=== PATIENT | male | born 1955 | race Caucasian/White ===

== ENCOUNTER 2018-10-09 10:00 | Outpatient (CLI) | payer MEDICARE, MEDICAID, SELFPAY ==
[2018-10-09 10:35] LABS: Abs Immature Grans 0.09 k/cumm (0.0-0.09); Absolute Basophil Count 0.07 k/cumm (0.0-0.2); Absolute Eosinophil Count 0.05 k/cumm (0.0-0.7); Absolute Monocyte Count 0.58 k/cumm (0.11-0.7); Absolute Neutrophil Count 5.63 k/cumm (1.2-6.7); Basophils % 0.9; Eosinophils % 0.6; HCT 44.3 % (40.0-50.0); Immature Grans % 1.1; Mean Corp. HGB Concentration 33.9 g/dL (32.0-36.0); Mean Corpuscular Hemoglobin 31.6 pg (27.0-33.0); Mean Corpuscular Volume 93.3 fL (80-95); Monocytes % 7.2; Neutrophils % 70.2; Platelet Count 242 x1000/uL (130-400); RBC 4.75 m/cumm (4.50-6.00); RBC Distribution Width 12.6 % (11.8-14.1); White Blood Cell Count 8.02 k/cumm (4.4-10.8)
[2018-10-09 10:40] LABS: Bilirubin Negative (Negative); Blood Negative (Negative); Clarity Clear; Glucose 100 mg/dL (Negative); Ketones Negative (Negative); Leukocyte Esterase Negative (Negative); Nitrite Negative (Negative); Urobilinogen 0.2 EU/dL (Up TO 0.2)
[2018-10-09 11:29] LABS: ALT 33 U/L (12-78); AST 15 U/L (15-37); Albumin 3.6 g/dL (3.4-5.0); Alkaline Phosphatase 81 U/L (46-116); Anion Gap 9.9 mmol/L (3-11); BUN 12 mg/dL (7-18); Bilirubin, Total 0.3 mg/dL (0.2-1.0); CO2 29.1 mmol/L (21.0-32.0); CREATININE 1.01 mg/dL (0.70-1.30); Calcium 9.1 mg/dL (8.5-10.1); Chloride 101 mmol/L (98-107); Cholesterol 217 mg/dL (50-200); Glucose 190 mg/dL (70-100); HDL Cholesterol 29 mg/dL (40-60); LDL CHOLESTEROL 128 mg/dL (<100); Potassium 4.2 mmol/L (3.5-5.1); Sodium 140 mmol/L (136-145); TSH (W/Ref FT4) 2.28 uIU/mL (0.358-3.74); Total Protein 7.4 g/dL (6.4-8.2); Triglyceride 370 mg/dL (30-150)
== END 2018-10-09 10:20 ==
PROVIDERS: PCP Specialist/Technologist Athletic Trainer; Visit Provider Nurse Practitioner Psychiatric/Mental Health
DX: F29 Unspecified psychosis not due to a substance or known physiological condition (principal); Z79.899 Other long term (current) drug therapy
CPT/HCPCS: 36415; 80053; 80061; 83721; 81003; 83036; 84443; 85025

== ENCOUNTER 2019-05-17 12:18 | Outpatient (REF) | payer MEDICARE, MEDICAID, SELFPAY ==
[2019-05-17 22:19] LABS: HCT 46.8 % (40.0-50.0); HGB 15.7 g/dL (13.5-17.5); Mean Corp. HGB Concentration 33.5 g/dL (32.0-36.0); Mean Corpuscular Volume 92.3 fL (80-95); Mean Platelet Volume 12.1 fL (8.0-11.0); Platelet Count 282 x1000/uL (130-400); RBC 5.07 m/cumm (4.50-6.00); RBC Distribution Width 12.2 % (11.8-14.1); White Blood Cell Count 8.13 k/cumm (4.4-10.8)
[2019-05-17 22:53] LABS: ALT 48 U/L (16-63); AST 18 U/L (15-37); Albumin 3.7 g/dL (3.4-5.0); Alkaline Phosphatase 99 U/L (46-116); Anion Gap 10.1 mmol/L (3-11); BUN 11 mg/dL (7-18); Bilirubin, Total 0.3 mg/dL (0.2-1.0); CO2 24.9 mmol/L (21.0-32.0); CREATININE 1.18 mg/dL (0.70-1.30); Calcium 9.2 mg/dL (8.5-10.1); Calculated LDL 126 mg/dL; Chloride 99 mmol/L (98-107); Cholesterol 224 mg/dL (50-200); Glucose 420 mg/dL (70-100); HDL Cholesterol 26 mg/dL (40-60); Magnesium 1.7 mg/dL (1.8-2.4); Potassium 4.7 mmol/L (3.5-5.1); Sodium 134 mmol/L (136-145); Total Protein 7.4 g/dL (6.4-8.2); Triglyceride 360 mg/dL (30-150)
[2019-05-17 23:10] LABS: Hemoglobin A1C 10.1 % (4.5-6.2)
== END 2019-05-17 12:38 ==
LOC: NCHCN 12:18
PROVIDERS: PCP Specialist/Technologist Athletic Trainer; Visit Provider Specialist/Technologist Athletic Trainer
DX: E11.65 Type 2 diabetes mellitus with hyperglycemia (principal); R41.89 Other symptoms and signs involving cognitive functions and awareness
CPT/HCPCS: 80053; 80061; 85027; 83036; 83735; 84443

== ENCOUNTER 2019-07-12 22:14 | Outpatient (REF) | payer MEDICARE, MEDICAID, SELFPAY ==
[2019-07-12 21:17] LABS: Bacteria Negative HPF (Negative); C & S Indicated? No; Crystals Negative HPF (Negative); Epithelial Cells Negative HPF (Negative); Mucus Negative (Negative); RBC 0-2 HPF (0-2); WBC Negative HPF (0-5)
== END 2019-07-12 22:34 ==
LOC: NCHCN 22:14
PROVIDERS: PCP Specialist/Technologist Athletic Trainer; Visit Provider Specialist/Technologist Athletic Trainer
DX: E11.65 Type 2 diabetes mellitus with hyperglycemia (principal); R41.89 Other symptoms and signs involving cognitive functions and awareness
CPT/HCPCS: 81015

== ENCOUNTER 2020-04-22 20:51 | Outpatient (REF) | payer MEDICARE, MEDICAID, SELFPAY ==
[2020-04-22 19:33] LABS: Abs Immature Grans 0.07 10^3/uL (0.0-0.06); Absolute Basophil Count 0.07 10^3/uL (0.0-0.2); Absolute Eosinophil Count 0.21 10^3/uL (0.0-0.7); Absolute Lymphocyte Count 2.18 10^3/uL (1.2-3.4); Absolute Monocyte Count 0.86 10^3/uL (0.1-0.8); Absolute Neutrophil Count 7.36 10^3/uL (1.2-6.7); Basophils % 0.7; HCT 39.9 % (40.0-50.0); HGB 13.6 g/dL (13.5-17.5); Immature Grans % 0.7; Lymphocytes % 20.3; MCH 31.8 pg (27.0-33.0); MCHC 34.1 % (32.0-36.0); MCV 93.2 fL (80-95); MPV 11.2 fL (8.0-11.0); Neutrophils % 68.3; Nucleated RBC 0 %; Platelet Count 340 10^3/uL (130-400); RBC 4.28 10^6/uL (4.36-5.78); RDW 12.8 % (11.8-14.1); RDW-SD 44.3 fL; WBC 10.75 10^3/uL (4.4-10.8)
[2020-04-22 19:56] LABS: ALT 21 U/L (16-63); AST 16 U/L (15-37); Albumin 3.4 g/dL (3.4-5.0); Alkaline Phosphatase 93 U/L (46-116); Anion Gap 9.9 mmol/L (3-11); BUN 24 mg/dL (7-18); Bilirubin, Total 0.5 mg/dL (0.2-1.0); CO2 25.1 mmol/L (21.0-32.0); CREATININE 1.17 mg/dL (0.70-1.30); Calcium 9.2 mg/dL (8.5-10.1); Chloride 100 mmol/L (98-107); Glucose 141 mg/dL (74-106); Potassium 4.7 mmol/L (3.5-5.1); Sodium 135 mmol/L (136-145); TSH (W/Ref FT4) 1.19 uIU/mL (0.36-3.74); Total Protein 6.7 g/dL (6.4-8.2)
== END 2020-04-22 21:11 ==
LOC: NCHCN 20:51
PROVIDERS: PCP Specialist/Technologist Athletic Trainer; Visit Provider Physician Assistant Medical
DX: E11.65 Type 2 diabetes mellitus with hyperglycemia (principal); I69.954 Hemiplegia and hemiparesis following unspecified cerebrovascular disease affecting left non-dominant side
CPT/HCPCS: 80053; 84443; 85025

== ENCOUNTER 2020-04-23 00:57 | Outpatient (CLI) | payer MEDICARE, MEDICAID, SELFPAY ==
--- NOTE | 2020-04-23 | DI.US_ITS ---
EXAM: US CAROTID CLINICAL HISTORY: LT SIDED WEAKNESS,G81.90,BILAT CAROTID BRUIT,R09.89. TECHNIQUE: Ultrasound carotids performed using grayscale, color-flow, and spectral Doppler imaging. COMPARISON: No exams were available for comparison FINDINGS: RIGHT CAROTID ARTERY: Plaque: Occlusive plaque seen extending from the distal common carotid artery into the right internal and external carotid arteries. Velocity elevation: Please see below LEFT CAROTID ARTERY: Plaque: Mild calcific plaque seen in the origins of the internal and external carotid arteries. Velocity elevation: Please see below VERTEBRAL ARTERIES: Antegrade flow. Measurements: Flow is undetectable in the common carotid artery and the visualized portions of the internal and ext ernal carotid arteries consistent with occlusion. R Vert: 74.6cm/s PS / 8.1cm/s ED L Bulb: 94.5cm/s PS /17.4cm/s ED L CCA: 106.7cm/s PS / 18cm/s ED L ECA: 187.2cm/s PS /9.5cm/s ED L ICA Prox:147.2cm/s PS / 24.2cm/s ED L ICA Mid: 165.1cm/sPS / 37.9cm/s ED L ICA Distal: 192.5cm/s PS / 42.1cm/s ED L Vert: 58.4cm/s PS / 9.8cm/s ED L SVR: 1.8 L DVR: 2.34 IMPRESSION: 1. 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 2. Findings consistent with 50-69 percent left ICA stenosis. 3. Bilateral antegrade vertebral artery flow. Criteria for Carotid Stenosis: Normal: ICA PSV <125 cm/s no plaque or intimal thickening is visible. <50% stenosis: ICA PSV <125 cm/s and plaque or intimal thickening is visible. 50-69% stenosis: ICA PSV is 125-250 cm/s and plaque is visible. >70% stenosis to near occlusion: ICA PSV >250 cm/s with visible plaque and luminal narrowing. DATA REPOSITORY:
--- NOTE | 2020-04-23 10:36 | DI.CT_ITS ---
EXAM: CT HEAD WO CLINICAL HISTORY: LT SIDED WEAKNESS,G81.90. TECHNIQUE: Imaging Protocol: Axial computed tomography images with coronal and sagittal reformatted images were created and reviewed COMPARISON: No exams were available for comparison FINDINGS: Ventricles and Extra axial spaces: Normal in size and morphology for the patient's age. Hemorrhage: None. Cerebral parenchyma: There are areas of decreased attenuation in the white matter consistent with chr onic microvascular ischemic disease. No acute territorial infarct. Midline shift: None. Brainstem/Cerebellum: Normal. Calvarium: Normal. Visualized Paranasal sinuses/Mastoids: Clear. Soft Tissues: Unremarkable. IMPRESSION: No acute intracranial process. RADIATION DOSE DELIVERED: 1,348.02mGy.cm Total DLP DATA REPOSITORY: All CT scans at this facility are submitted to the National Radiology Data Registry (NRDR) Dose Index Registry (DIR) with the [employer] (ACR). RADIATION OPTIMIZATION: All CT scans at this facility use at least one of these dose optimization te chniques: automated exposure control; mA and/or kV adjustment per patient size (includes targeted exa ms where dose is matched to clinical indication); or iterative reconstruction.
== END 2020-04-23 01:17 ==
PROVIDERS: PCP Specialist/Technologist Athletic Trainer; Visit Provider Physician Assistant Medical
DX: R53.1 Weakness (principal); R09.89 Other specified symptoms and signs involving the circulatory and respiratory systems; I65.21 Occlusion and stenosis of right carotid artery
CPT/HCPCS: 70450; 93880

== ENCOUNTER 2020-05-06 00:59 | Outpatient (CLI) | payer MEDICARE, MEDICAID, SELFPAY ==
[2020-05-06] MEDS: Gadoterate meglumine 20 ML VIAL 14 ML IV (11:39)
[2020-05-06] MEDS: Normal Saline Flush 10 ML SYR IVP (11:40)
--- NOTE | 2020-05-06 12:30 | DI.MRI_ITS ---
EXAM: MR BRAIN WO/W CLINICAL HISTORY: WEAKNESS LT SIDE OF BODY,G81.90,MENTAL STATUS CHANGES,R41.82. TECHNIQUE: Multiplanar multisequence MRI was performed. COMPARISON: No exams were available for comparison FINDINGS: MR examination of brain was performed according to the usual protocol with additional post contrast T 1 weighted and MP rage imaging. There is no mass lesion or enhancing lesion in the brain. There are scattered white matter signal changes in periventricular white matter and the vicente. No oth er focal signal abnormality seen in the brain apart from small bilateral lacunar infarcts.. Diffusion-weighted imaging shows no evidence of diffusion restriction to suggest the presence cerebra l infarction. Susceptibility weighted imaging shows no evidence of acute intracranial hemorrhage. The orbital and temporal bone structures appear intact. Pituitary is unremarkable. On T2 weighted imaging and MP rage imaging, there is suggestion of occlusion or high-grade stenosis o f the right intracranial internal carotid artery. Otherwise the [id number] vasculature as visu alized appears intact. IMPRESSION: Findings suggesting right ICA occlusion. No evidence acute or subacute cerebral infarction. DATA REPOSITORY:
== END 2020-05-06 01:19 ==
PROVIDERS: PCP Nurse Practitioner Family; Visit Provider Nurse Practitioner Family
DX: G81.94 Hemiplegia, unspecified affecting left nondominant side (principal); R41.82 Altered mental status, unspecified
CPT/HCPCS: 70553

== ENCOUNTER 2020-05-25 13:21 | Emergency (ER) | payer MEDICARE, MEDICAID, SELFPAY ==
[2020-05-25] VITALS (16 sets, daily range): BP systolic 141–160; BP diastolic 66–73; PULSE 108–120; RESP 14–20; TEMP 36.9; O2SAT 97–99
--- NOTE | 2020-05-25 13:15 | RT.EKG_ITS ---
APPROVED REPORT Exam: Resting ECG Patient Location: E HR:116 bpm ECG Measurements Heart Rate 116 AXIS MN 184 P 44 QRSd 81 QRS -2 QT 327 T 47 QTc 455 Conclusion Sinus tachycardia...rate> 99 Physician: No STEMI
--- NOTE | 2020-05-25 13:29 | ED.GENADUL_ITS ---
Discharge Plan Disposition Patient Disposition: HOME Condition: Stable Discharge Details Clinical Impression: Frequent falls Primary Care Provider: Beth Del Castillo ED Provider: Eva Green Home Meds and New Rx's Prescriptions: Continued atorvastatin 40 mg tablet 40 mg PO .QHS RF: 0 olanzapine 5 mg tablet 5 mg PO .QAM RF: 0 clopidogrel 75 mg tablet 75 mg PO DAILY RF: 0 tamsulosin 0.4 mg capsule 0.4 mg PO DAILY RF: 0 benztropine 2 mg tablet 40 mg PO DAILY RF: 0 aspirin 81 mg Tablet 81 mg PO DAILY RF: 0 lisinopril 5 mg tablet 5 mg PO DAILY RF: 0 mirtazapine 15 mg tablet 15 mg PO .QHS RF: 0 fluoxetine 20 mg capsule 20 mg PO DAILY RF: 0 olanzapine 20 mg tablet 20 mg PO DAILY RF: 0 metformin 750 mg tablet extended release 24 hr 750 mg PO BID RF: 0 Lantus Solostar U-100 Insulin 100 unit/mL (3 mL) insulin pen 10 unit SUBCUT .QHS RF: 0 Discharge Instructions Instructions: Fall Prevention for Older Adults (ED) Additional Instructions: Follow up with primary care provider in 3-5 days. Return to ED sooner if any worsening or concerns. Increase oral fluids. Use a walker as much as possible do not get out of bed without calling for help first. Referrals: Beth Del Castillo [Primary Care Provider] - Discharge Data Discharge Date/Time-TO BE ENTERED AT DEPARTURE: 05/25/20 16:40 Medical Decision Making 64-year-old male presents to the ER chief complaint of frequent falls. EMS states that 3 call with falls prior to arrival. Patient had refused transport earlier. He is in assisted living facility in [place], EMS reports that the facility feels that he may be becoming too much to care for him there. There is also report the patient has become incontinent of stool. Patient is cooperative and follows commands, he denies any pain anywhere no obvious head injuries. He also is taking Plavix 75 mg and aspirin 81 mg. He has a past medical history of schizophrenia, dementia, diabetes, hyperlipidemia. 1448: Spoke with Shira at [facility] who reports that they do not feel equipped nor do they feel safe for patient to return to this therapy, she states that there is one staff member on a time and they have been having a hard time with lifting patient after he is fallen. She reports that they have been trying to get him a higher level of care and have been working with Jen Phan at the [facility]. We will contact her management to discuss options at this time I am not finding any medical reason to keep patient in the hospital. EXAM: CT HEAD WO CLINICAL HISTORY: Falls, weakness, hx of cva. TECHNIQUE: Imaging Protocol: Axial computed tomography images with coronal and sagittal reformatted images were created and reviewed COMPARISON: CT CT HEAD WO from 04/23/2020 CR XR CHEST 2V PA LATERAL from 05/25/2020 FINDINGS: There is moderate generalized cerebral atrophy.. No evidence of acute intracranial hemorrhage, mass effect, or midline shift. The orbital structures are unremarkable. The temporal bone structures appear intact. Calvarium: Normal. Visualized Paranasal sinuses/Mastoids: Clear. IMPRESSION: Cerebral atrophy, no evidence of acute intracranial process. CLINICAL HISTORY: Frequent falls, weakness TECHNIQUE: 2D digital imaging was performed. COMPARISON: No exams were available for comparison FINDINGS: The heart is not enlarged. The lungs are clear and well expanded. No pleural effusion seen. Mediastinal contours appear intact. IMPRESSION: Normal chest. Labs show white blood cell count of 8.61, RBC 3.74 hemoglobin 11.9, hematocrit 35.1, platelets 372, sodium 137, potassium 4.3, anion gap 12.5, BUN 24, creatinine 1.26, glucose 126, magnesium 1.7, troponin is pending urinalysis shows no leukocytes, no nitrites. 1500: Spoke with Aislinn Padilla with care management regarding patient and assisted living facility situation. She states unfortunately patient will have to go back. There is no medical reason for patient admission at this time. Discussed this plan with patient who verbalized understanding, he states he does have a walker. Patient to be transported back via EMS due to history of dementia and frequent falls. HPI General Mode of arrival: EMS . Date/Time Provider Initiated Documentation: 05/25/20 13:22 . Information obtained by: EMS . HPI Narrative: 64-year-old male presents to the ER chief complaint of frequent falls. EMS states that 3 call with falls prior to arrival. Patient had refused transport earlier. He is in assisted living facility in [place], EMS reports that the facility feels that he may be becoming too much to care for him there. There is also report the patient has become incontinent of stool. Patient is cooperative and follows commands, he denies any pain anywhere no obvious head injuries. He also is taking Plavix 75 mg and aspirin 81 mg. He has a past medical history of schizophrenia, dementia, diabetes, hyperlipidemia. Related Data Home Medications Medication Instructions Recorded Confirmed Lantus Solostar U-100 Insulin 10 unit SUBCUT .QHS 05/25/20 05/25/20 aspirin 81 mg PO DAILY 05/25/20 05/25/20 atorvastatin 40 mg PO .QHS 05/25/20 05/25/20 benztropine 40 mg PO DAILY 05/25/20 05/25/20 clopidogrel 75 mg PO DAILY 05/25/20 05/25/20 fluoxetine 20 mg PO DAILY 05/25/20 05/25/20 lisinopril 5 mg PO DAILY 05/25/20 05/25/20 metformin 750 mg PO BID 05/25/20 05/25/20 mirtazapine 15 mg PO .QHS 05/25/20 05/25/20 olanzapine 5 mg PO .QAM 05/25/20 05/25/20 olanzapine 20 mg PO DAILY 05/25/20 05/25/20 tamsulosin 0.4 mg PO DAILY 05/25/20 05/25/20 Allergies Allergy/AdvReac Type Severity Reaction Status Date / Time Penicillins Allergy Verified 05/25/20 14:26 Review of Systems All systems reviewed & are unremarkable except as noted in HPI and below Constitutional Constitutional: Reports as per HPI, Denies fever(s), Reports frequent falls and Reports weakness ENT Ears, Nose, Mouth, and Throat: Reports disequilibrium Cardiovascular Cardiovascular: Reports as per HPI and Reports system reviewed and no additional complaints, except as documented Respiratory Respiratory: Reports system reviewed and no additional complaints, except as documented Gastrointestinal Gastrointestinal: Denies diarrhea, Denies nausea and Denies vomiting Genitourinary Genitourinary: Denies urinary frequency, Denies urinary hesitancy and Denies urinary incontinence Neurologic Neurologic: Reports as per HPI, Reports frequent falls, Reports disequilibrium and Reports weakness [facility] Medical History (Updated 05/25/20 @ 15:00 by Eva Green) Dementia Schizophrenia Social History Smoking risk assessment performed?: No Alcohol Intake: never Substance use type: does not use Exam Narrative Exam Narrative: Constitutional: Alert and oriented x2. Appears stated age. N ormal body habitus. Head: Normocephalic, no trauma. Eyes: Pupils PERRLA, Red reflex noted, EOM's intact. Eyelids symmetrical without lesions, discharge, or swelling. ENT: Bilateral TM's WNL, External ear normal to inspection, no mastoid TTP, swelling, or erythema, Nasal turbinates WNL, no nasal discharge. Normal dentition, Posterior pharynx WNL, no exudate. Chest: RRR, Normal S1, S2, distal pulses intact. Resp: Lungs clear to auscultation bilaterally, no wheezes, rales, or rhonchi. Musculoskeletal: unsteady gait, 5/5 strength to all four extremities. Skin: No suspicious rashes or lesions. Capillary refill less than 2 sec. Neurologic: Cranial nerves II-XII intact. Alert and oriented x 2. DTR's intact. Hx of dementia. Hematologic/Lymphatic: No ecchymosis, no lymphadenopathy.
--- NOTE | 2020-05-25 13:30 | DI.CT_ITS ---
EXAM: CT HEAD WO CLINICAL HISTORY: Falls, weakness, hx of cva. TECHNIQUE: Imaging Protocol: Axial computed tomography images with coronal and sagittal reformatted images were created and reviewed COMPARISON: CT CT HEAD WO from 04/23/2020 CR XR CHEST 2V PA LATERAL from 05/25/2020 FINDINGS: There is moderate generalized cerebral atrophy.. No evidence of acute intracranial hemorrhage, mass effect, or midline shift. The orbital structures are unremarkable. The temporal bone structures appear intact. Calvarium: Normal. Visualized Paranasal sinuses/Mastoids: Clear. IMPRESSION: Cerebral atrophy, no evidence of acute intracranial process. RADIATION DOSE DELIVERED: 722.31mGy.cm Total DLP 722.31mGy.cm Total DLP DATA REPOSITORY: All CT scans at this facility are submitted to the National Radiology Data Registry (NRDR) Dose Index Registry (DIR) with the [employer] (ACR). RADIATION OPTIMIZATION: All CT scans at this facility use at least one of these dose optimization te chniques: automated exposure control; mA and/or kV adjustment per patient size (includes targeted exa ms where dose is matched to clinical indication); or iterative reconstruction.
[2020-05-25 13:57] LABS: Abs Immature Grans 0.05 10^3/uL (0.0-0.06); Absolute Basophil Count 0.06 10^3/uL (0.0-0.2); Absolute Eosinophil Count 0.06 10^3/uL (0.0-0.7); Absolute Lymphocyte Count 1.54 10^3/uL (1.2-3.4); Absolute Monocyte Count 0.65 10^3/uL (0.1-0.8); Absolute Neutrophil Count 6.25 10^3/uL (1.2-6.7); Basophils % 0.7; Eosinophils % 0.7; HCT 35.1 % (40.0-50.0); HGB 11.9 g/dL (13.5-17.5); Immature Grans % 0.6; Lymphocytes % 17.9; MCH 31.8 pg (27.0-33.0); MCHC 33.9 % (32.0-36.0); MCV 93.9 fL (80-95); Monocytes % 7.5; Neutrophils % 72.6; Nucleated RBC 0 %; Platelet Count 372 10^3/uL (130-400); RBC 3.74 10^6/uL (4.36-5.78); RDW 12.8 % (11.8-14.1); RDW-SD 43.9 fL; WBC 8.61 10^3/uL (4.4-10.8)
--- NOTE | 2020-05-25 14:00 | DI.RAD_ITS ---
EXAM: XR CHEST 2V PA LATERAL CLINICAL HISTORY: Frequent falls, weakness TECHNIQUE: 2D digital imaging was performed. COMPARISON: No exams were available for comparison FINDINGS: The heart is not enlarged. The lungs are clear and well expanded. No pleural effusion seen. Mediastin al contours appear intact. IMPRESSION: Normal chest. RADIATION DOSE DELIVERED: Total DLP
[2020-05-25 14:15] LABS: Bilirubin Negative (Negative); Blood Negative (Negative); Clarity Clear (Clear); Glucose Negative (Negative); Ketones Negative (Negative); Leukocyte Esterase Negative (Negative); Nitrite Negative (Negative); Urobilinogen 0.2 EU/dL (Up TO 0.2)
[2020-05-25 14:25] LABS: ALT 24 U/L (16-63); AST 19 U/L (15-37); Albumin 3.5 g/dL (3.4-5.0); Alkaline Phosphatase 74 U/L (46-116); Anion Gap 12.5 mmol/L (3-11); BUN 24 mg/dL (7-18); Bilirubin, Total 0.3 mg/dL (0.2-1.0); CO2 22.5 mmol/L (21.0-32.0); CREATININE 1.26 mg/dL (0.70-1.30); Calcium 9.4 mg/dL (8.5-10.1); Chloride 102 mmol/L (98-107); Estimated GFR 57.62 (mL/min/1.73m2); Glucose 126 mg/dL (74-106); Magnesium 1.7 mg/dL (1.8-2.4); Potassium 4.3 mmol/L (3.5-5.1); Sodium 137 mmol/L (136-145); Total Protein 7.1 g/dL (6.4-8.2)
[2020-05-25 14:26] LABS: Troponin I < 0.05 ng/mL (<0.06)
[2020-05-25] MEDS: Normal Saline 500 ML IV (14:56)
--- NOTE | 2020-05-25 16:04 | CMPROGNOTE_ITS ---
- If Service Date Differs Date of service: 05/25/20 Time of Service: 16:04 Care Management Progress Note S/O: JONO received a page from the ED provider Michael was evaluated in the ED today after multiple falls in his level 3 custodial [place]. JONO received report that Marciano Knutson from [facility] ambulance and the photographic equipment technician Robyn of the home declined to have Michael to the assisted living. JONO attempted to contact Robyn several times at the house and on her cell. JONO left a message that Michael was ready to return to the home and that his ED visit did not show acute process. Robyn returned call stating that she never intended for Michale to not return and accepts his return to the assisted living. She does express concern that she has not been able to find him a higher level of care and is exhausting her community supports trying to place him. Robyn agrees to have Michael return to [place] and will continue to work with the community supports for placement. CM encouraged Robyn to also follow up with [facility] supports to assist in placement and maybe Michael would benefit from an A[facility] instead of an assisted living. A: Michael is a 64 year old male with the diagnosis schizophrenia, dementia and history of CVA. He is supported by mental health through [facility], psychiatry and primary care practice. Per the assisted living he has been falling more lately they have been trying to place him in a higher level of care however have not been able to. P: Michael is returning to [place] via [facility] private car with resumption of community supports.
== END 2020-05-25 16:40 | disposition home or self-care (01) ==
PROVIDERS: Emergency Provider Registered Nurse Emergency; PCP Nurse Practitioner Family
DX: R29.6 Repeated falls (principal); R53.1 Weakness; F03.90 Unspecified dementia, unspecified severity, without behavioral disturbance, psychotic disturbance, mood disturbance, and anxiety; F20.9 Schizophrenia, unspecified; E11.9 Type 2 diabetes mellitus without complications
CPT/HCPCS: 36415; 36416; 80053; 82962; 93005; 99285; 70450; 71046; 81003; 83735; 84484; 85025; 93010; 99284

== ENCOUNTER 2020-06-06 07:44 | Inpatient (IN) | payer MEDICARE, MEDICAID, SELFPAY ==
[2020-06-06] VITALS (155 sets, daily range): BP systolic 67–230; BP diastolic 32–85; PULSE 68–131; RESP 16–33; TEMP 36.6–38.1; O2SAT 89–99
--- NOTE | 2020-06-06 07:30 | RT.EKG_ITS ---
APPROVED REPORT Exam: Resting ECG Patient Location: E HR:108 bpm ECG Measurements Heart Rate 108 AXIS CA 159 P 68 QRSd 77 QRS -9 QT 356 T 71 QTc 477 Conclusion Sinus tachycardia...rate> 99
--- NOTE | 2020-06-06 08:00 | DI.CT_ITS ---
EXAM: CT HEAD WO CLINICAL HISTORY: altered mentation. TECHNIQUE: Imaging Protocol: Axial computed tomography images with coronal and sagittal reformatted images were created and reviewed COMPARISON: CT CT HEAD WO from 05/25/2020 FINDINGS: There is moderate generalized cerebral atrophy. No evidence of acute intracranial hemorrhage, mass effect, or midline shift. The orbital structures are unremarkable. The temporal bone structures appear intact. Calvarium: Normal. Visualized Paranasal sinuses/Mastoids: Clear. IMPRESSION: No evidence of acute intracranial process. RADIATION DOSE DELIVERED: 712.96mGy.cm Total DLP 712.96mGy.cm Total DLP DATA REPOSITORY: All CT scans at this facility are submitted to the National Radiology Data Registry (NRDR) Dose Index Registry (DIR) with the [employer] (ACR). RADIATION OPTIMIZATION: All CT scans at this facility use at least one of these dose optimization te chniques: automated exposure control; mA and/or kV adjustment per patient size (includes targeted exa ms where dose is matched to clinical indication); or iterative reconstruction.
--- NOTE | 2020-06-06 08:14 | DI.RAD_ITS ---
EXAM: XR CHEST 1V IN DI DEPT CLINICAL HISTORY: altered TECHNIQUE: COMPARISON: CR XR CHEST 2V PA LATERAL from 05/25/2020 FINDINGS: The heart is not enlarged. The upper lung zones are predominantly clear. There are new areas of pat yulissa intrapulmonary increased radiodensity in the right lung base, new since prior examination of Nove . Findings are suggestive of pneumonia. Left lung base grossly clear. IMPRESSION: New right basilar patchy infiltrates suggestive of pneumonia. Appropriate follow-up studies suggeste d. RADIATION DOSE DELIVERED: Total DLP
[2020-06-06] MEDS: Normal Saline 1,000 ML 1000 ML IV (08:33)
[2020-06-06 08:37] LABS: HCT 28.4 % (40.0-50.0); HGB 9.5 g/dL (13.5-17.5); MCH 31.3 pg (27.0-33.0); MCHC 33.5 % (32.0-36.0); MCV 93.4 fL (80-95); MPV 10.8 fL (8.0-11.0); Nucleated RBC 0 %; Platelet Count 414 10^3/uL (130-400); RBC 3.04 10^6/uL (4.36-5.78); RDW 13.1 % (11.8-14.1); RDW-SD 44.8 fL; WBC 9.54 10^3/uL (4.4-10.8)
[2020-06-06 08:41] LABS: Bilirubin Small (Negative); Blood Negative (Negative); Clarity Clear (Clear); Glucose Negative (Negative); Ketones Negative (Negative); Leukocyte Esterase Negative (Negative); Nitrite Negative (Negative); Specific Gravity 1.025 (1.005-1.025); Urobilinogen 0.2 EU/dL (Up TO 0.2); pH 5.5 (5-8)
[2020-06-06 08:41] LABS: Lactate 3.4 mmol/L (0.6-1.4)
[2020-06-06 08:55] LABS: ALT 12 U/L (16-63); AST 12 U/L (15-37); Absolute Lymphocyte Count 1.24 10^3/uL (1.2-3.4); Absolute Monocyte Count 0.57 10^3/uL (0.1-0.8); Absolute Neutrophil Count 7.73 10^3/uL (1.2-6.7); Albumin 2.1 g/dL (3.4-5.0); Alkaline Phosphatase 50 U/L (46-116); Anion Gap 11.8 mmol/L (3-11); Atypical Lymphocytes % 1; Bands % 17; Bilirubin, Total 0.4 mg/dL (0.2-1.0); CO2 25.2 mmol/L (21.0-32.0); Calcium 9.3 mg/dL (8.5-10.1); Chloride 100 mmol/L (98-107); Diff Comment Manual Differential; Estimated GFR 16.42 (mL/min/1.73m2); Glucose 164 mg/dL (74-106); Magnesium 1.8 mg/dL (1.8-2.4); Potassium 4.4 mmol/L (3.5-5.1); RBC Morphology Normal; Sodium 137 mmol/L (136-145); Total Protein 5.6 g/dL (6.4-8.2)
[2020-06-06 08:56] LABS: BUN 89 mg/dL (7-18); Troponin I < 0.05 ng/mL (<0.06)
[2020-06-06 08:57] LABS: *AMPHETAMINES SCREEN URINE Negative (Negative); *BARBITURATES SCREEN URINE Negative (Negative); *BENZODIAZEPINES SCREEN URINE Negative (Negative); Cannabinoids THC Negative (Negative); Cocaine Screen,Urine Negative (Negative); METHADONE URINE SCREEN Negative (Negative); OPIATES URINE SCREEN Negative (Negative); Tricyclic Antidepressants Negative (Negative)
[2020-06-06 08:57] LABS: CREATININE 3.74 mg/dL (0.70-1.30)
[2020-06-06] MEDS: Normal Saline 1,000 ML 200 ML IV ×2 (09:46→14:47)
--- NOTE | 2020-06-06 09:47 | ED.GENADUL_ITS ---
Discharge Plan Discharge Details Chief Complaint: [facility]Medical Primary Care Provider: Beth Del Castillo ED Provider: Ricardo Bellamy Home Meds and New Rx's Prescriptions: No Action atorvastatin 40 mg tablet 40 mg PO .QHS RF: 0 olanzapine 5 mg tablet 5 mg PO .QAM RF: 0 clopidogrel 75 mg tablet 75 mg PO DAILY RF: 0 tamsulosin 0.4 mg capsule 0.4 mg PO DAILY RF: 0 benztropine 2 mg tablet 40 mg PO DAILY RF: 0 aspirin 81 mg Tablet 81 mg PO DAILY RF: 0 lisinopril 5 mg tablet 5 mg PO DAILY RF: 0 mirtazapine 15 mg tablet 15 mg PO .QHS RF: 0 fluoxetine 20 mg capsule 20 mg PO DAILY RF: 0 olanzapine 20 mg tablet 20 mg PO DAILY RF: 0 metformin 750 mg tablet extended release 24 hr 750 mg PO BID RF: 0 Lantus Solostar U-100 Insulin 100 unit/mL (3 mL) insulin pen 10 unit SUBCUT .QHS RF: 0 Medical Decision Making 64 yo m with history of CVA with residual left sided weakness, schizophrenia, dementia, here with altered mental status from baseline, sent from assisted living facility, no complaints, limited history. Patient was hypotensive and tachycardic in critical condition on arrival. He is saturating well in no respiratory distress. Lung auscultation reveals some r ales right base. Patient has received 2L resuscitation bolus. He remains tachycardic with low normal blood pressure. Lactate is elevated. Plan to initiate Levophed infusion. Chest x-ray was reviewed and interpreted by radiology: Right fluffy opacity concerning for infiltrate. Plan to initiate early antibiotic coverage with ceftriaxone. Labs reviewed and anemia noted. Acute kidney injury noted with significant elevation of creatinine, suspect prerenal given elevated BUN and hypokalemic on exam. CT head reviewed and interpreted by radiology: No acute process. Urinalysis was reviewed and is not consistent with UTI. Given critical condition and infiltrate on x-ray coming from congregate living situation I believe in-house that Covid testing is warranted. [id number] --paged hospitalist to admit to ICU. Awaiting callback. --Patient was reassessed and map now improved on norepinephrine infusion. Additional IV access obtained by nursing. [id number] --Spoke with hospitalist injection press operator, Dr. Jenkins. Discussed ED presentation and course. He will admit the patient to the ICU. He request additional antibiotic clindamycin be initiated as soon as possible after ceftriaxone. Lab Data Lab results reviewed: Yes I reviewed the patient's lab results. Lab results narrative: 06/06/20 09:47 Blood Blood Culture - Pending 06/06/20 09:47 Blood Blood Culture - Pending Laboratory Tests Range/Units 06/06/20 06/06/20 06/06/20 08:25 08:25 08:30 WBC (4.4-10.8) 10^3/uL RBC (4.36-5.78) 10^6/uL Hgb (13.5-17.5) g/dL Hct (40.0-50.0) % MCV (80-95) fL MCH (27.0-33.0) pg MCHC (32.0-36.0) % RDW (11.8-14.1) % Plt Count (130-400) 10^3/uL MPV (8.0-11.0) fL Immature Gran % Neutrophils % Band Neutrophils % Lymphocytes % Atypical Lymphs % Monocytes % Eosinophils % Basophils % Nucleated RBC % % Absolute Neutrophils (1.2-6.7) 10^3/uL Absolute Lymphocytes (1.2-3.4) 10^3/uL Absolute Monocytes (0.1-0.8) 10^3/uL Absolute Eosinophils (0.0-0.7) 10^3/uL Absolute Basophils (0.0-0.2) 10^3/uL RBC Morphology VBG Lactate (0.6-1.4) mmol/L 3.4 H* Sodium (136-145) mmol/L Potassium (3.5-5.1) mmol/L Chloride (98-107) mmol/L Carbon Dioxide (21.0-32.0) mmol/L Anion Gap (3-11) mmol/L BUN (7-18) mg/dL Creatinine (0.70-1.30) mg/dL Estimated GFR/1.73 m2 (mL/min/1.73m2) Glucose (74-106) mg/dL Calcium (8.5-10.1) mg/dL Magnesium (1.8-2.4) mg/dL Total Bilirubin (0.2-1.0) mg/dL AST (15-37) U/L ALT (16-63) U/L Alkaline Phosphatase (46-116) U/L Troponin I (<0.06) ng/mL Total Protein (6.4-8.2) g/dL Albumin (3.4-5.0) g/dL Urine Color (Yellow) Yellow Urine Clarity (Clear) Clear Urine pH (5-8) 5.5 Ur Specific [place] (1.005-1.025) 1.025 Urine Protein (Negative) mg/dL Negative Urine Ketones (Negative) mg/dL Negative Urine Blood (Negative) Negative Urine Nitrite (Negative) Negative Urine Bilirubin (Negative) Small H Urine Urobilinogen (Up TO 0.2) EU/dL 0.2 Ur Leukocyte Esterase (Negative) Negative Urine Glucose (Negative) mg/dL Negative Urine Opiates Screen (Negative) Negative Urine Methadone Screen (Negative) Negative Ur Barbiturates Screen (Negative) Negative Ur Tricyclics Screen (Negative) Negative Ur Amphetamines Screen (Negative) Negative U Benzodiazepines Scrn (Negative) Negative Urine Cocaine Screen (Negative) Negative Ur THC Screen (Negative) Negative Range/Units 06/06/20 06/06/20 08:30 08:30 WBC (4.4-10.8) 10^3/uL 9.54 RBC (4.36-5.78) 10^6/uL 3.04 L Hgb (13.5-17.5) g/dL 9.5 L Hct (40.0-50.0) % 28.4 L MCV (80-95) fL 93.4 MCH (27.0-33.0) pg 31.3 MCHC (32.0-36.0) % 33.5 RDW (11.8-14.1) % 13.1 Plt Count (130-400) 10^3/uL 414 H MPV (8.0-11.0) fL 10.8 Immature Gran % 0.0 Neutrophils % 64.0 Band Neutrophils % 17 Lymphocytes % 12.0 Atypical Lymphs % 1 Monocytes % 6.0 Eosinophils % 0.0 Basophils % 0.0 Nucleated RBC % % 0 Absolute Neutrophils (1.2-6.7) 10^3/uL 7.73 H Absolute Lymphocytes (1.2-3.4) 10^3/uL 1.24 Absolute Monocytes (0.1-0.8) 10^3/uL 0.57 Absolute Eosinophils (0.0-0.7) 10^3/uL 0.00 Absolute Basophils (0.0-0.2) 10^3/uL 0.00 RBC Morphology Normal VBG Lactate (0.6-1.4) mmol/L Sodium (136-145) mmol/L 137 Potassium (3.5-5.1) mmol/L 4.4 Chloride (98-107) mmol/L 100 Carbon Dioxide (21.0-32.0) mmol/L 25.2 Anion Gap (3-11) mmol/L 11.8 H BUN (7-18) mg/dL 89 H* Creatinine (0.70-1.30) mg/dL 3.74 H* Estimated GFR/1.73 m2 (mL/min/1.73m2) 16.42 Glucose (74-106) mg/dL 164 H Calcium (8.5-10.1) mg/dL 9.3 Magnesium (1.8-2.4) mg/dL 1.8 Total Bilirubin (0.2-1.0) mg/dL 0.4 AST (15-37) U/L 12 L ALT (16-63) U/L 12 L Alkaline Phosphatase (46-116) U/L 50 Troponin I (<0.06) ng/mL < 0.05 Total Protein (6.4-8.2) g/dL 5.6 L Albumin (3.4-5.0) g/dL 2.1 L Urine Color (Yellow) Urine Clarity (Clear) Urine pH (5-8) Ur Specific [place] (1.005-1.025) Urine Protein (Negative) mg/dL Urine Ketones (Negative) mg/dL Urine Blood (Negative) Urine Nitrite (Negative) Urine Bilirubin (Negative) Urine Urobilinogen (Up TO 0.2) EU/dL Ur Leukocyte Esterase (Negative) Urine Glucose (Negative) mg/dL Urine Opiates Screen (Negative) Urine Methadone Screen (Negative) Ur Barbiturates Screen (Negative) Ur Tricyclics Screen (Negative) Ur Amphetamines Screen (Negative) U Benzodiazepines Scrn (Negative) Urine Cocaine Screen (Negative) Ur THC Screen (Negative) HPI General Mode of arrival: EMS . Date/Time Provider Initiated Documentation: 06/06/20 08:03 . Limitations to Documentation: altered mental status . Information obtained by: patient and EMS . HPI Narrative: 63-year-old male with multiple medical problems including history of CVA with residual left-sided weakness, schizophrenia, dementia, sent from assisted living facility with concern for altered mental status from baseline. History and review of systems limited secondary to altered mental status. Patient denies pain. EMS note patient was hypotensive and tachycardic and has initiated volume resuscitation. Related Data Home Medications Medication Instructions Recorded Confirmed Lantus Solostar U-100 Insulin 10 unit SUBCUT .QHS 05/25/20 06/06/20 aspirin 81 mg PO DAILY 05/25/20 06/06/20 atorvastatin 40 mg PO .QHS 05/25/20 06/06/20 benztropine 40 mg PO DAILY 05/25/20 06/06/20 clopidogrel 75 mg PO DAILY 05/25/20 06/06/20 fluoxetine 20 mg PO DAILY 05/25/20 06/06/20 lisinopril 5 mg PO DAILY 05/25/20 06/06/20 metformin 750 mg PO BID 05/25/20 06/06/20 mirtazapine 15 mg PO .QHS 05/25/20 06/06/20 olanzapine 5 mg PO .QAM 05/25/20 06/06/20 olanzapine 20 mg PO DAILY 05/25/20 06/06/20 tamsulosin 0.4 mg PO DAILY 05/25/20 06/06/20 Allergies Allergy/AdvReac Type Severity Reaction Status Date / Time Penicillins Allergy Verified 06/06/20 07:53 General Stated Complaint: [facility]Medical LAILA: 3 Review of Systems Unobtainable due to mental status [facility] Medical History Dementia Schizophrenia Social History Smoking risk assessment performed?: No Alcohol Intake: never Substance use type: does not use Exam Const General: cooperative Orientation: alert, awake and confused [facility] Head: normocephalic and atraumatic Mouth: mucous membranes dry Eyes Conjunctivae: normal conjunctivae Sclera: normal sclerae Neck Neck: trachea midline and supple Resp Auscultation: rales on the right at the base, no rhonchi and no wheezes Cardio Jugular venous pressure: no JVD Rate: tachycardic Rhythm: regular rhythm GI Palpation: soft, not firm, no guarding, no masses, not rigid and nontender Skin General skin exam: no rashes or lesions noted Neuro General: patient alert, patient awake, oriented Patient Orientation: Person and Confused and tone normal Speech: other (slurred) Motor: strength not 5/5 throughout and other (4/5 LUE, 5/5 RUE, b/l LEs) Extrem General: no edema Psych Appearance: grossly normal Course Vital Signs Vital signs: Vital Signs Temperature 36.6 C 06/06/20 07:44 Pulse 108 H 06/06/20 07:44 Respiratory Rate 22 06/06/20 07:44 Blood Pressure 100/48 L 06/06/20 07:44 Pulse Oximetry 93 06/06/20 07:44 Temperature 36.6 C 06/06/20 07:44 Temperature Source Skin 06/06/20 07:44 Pulse 106 H 06/06/20 09:46 Pulse 109 H 06/06/20 09:46 Respiratory Rate 18 06/06/20 09:46 Respiratory Effort Non-Labored 06/06/20 08:33 Respiratory Depth Normal 06/06/20 08:33 Respiratory Pattern Normal 06/06/20 08:33 Blood Pressure 98/45 L 06/06/20 09:46 Blood Pressure Mean 58 06/06/20 09:46 Blood Pressure Position Sitting 06/06/20 07:44 Pulse Oximetry 96 06/06/20 09:46 Oxygen Delivery Method Nasal Cannula 06/06/20 07:44 Oxygen Flow Rate 2 06/06/20 07:44 Lab/Test Results Lab/Test Results: Laboratory Tests Range/Units 06/06/20 06/06/20 06/06/20 08:25 08:25 08:30 WBC (4.4-10.8) 10^3/uL RBC (4.36-5.78) 10^6/uL Hgb (13.5-17.5) g/dL Hct (40.0-50.0) % MCV (80-95) fL MCH (27.0-33.0) pg MCHC (32.0-36.0) % RDW (11.8-14.1) % Plt Count (130-400) 10^3/uL MPV (8.0-11.0) fL Immature Gran % Neutrophils % Band Neutrophils % Lymphocytes % Atypical Lymphs % Monocytes % Eosinophils % Basophils % Nucleated RBC % % Absolute Neutrophils (1.2-6.7) 10^3/uL Absolute Lymphocytes (1.2-3.4) 10^3/uL Absolute Monocytes (0.1-0.8) 10^3/uL Absolute Eosinophils (0.0-0.7) 10^3/uL Absolute Basophils (0.0-0.2) 10^3/uL RBC Morphology VBG Lactate (0.6-1.4) mmol/L 3.4 H* Sodium (136-145) mmol/L Potassium (3.5-5.1) mmol/L Chloride (98-107) mmol/L Carbon Dioxide (21.0-32.0) mmol/L Anion Gap (3-11) mmol/L BUN (7-18) mg/dL Creatinine (0.70-1.30) mg/dL Estimated GFR/1.73 m2 (mL/min/1.73m2) Glucose (74-106) mg/dL Calcium (8.5-10.1) mg/dL Magnesium (1.8-2.4) mg/dL Total Bilirubin (0.2-1.0) mg/dL AST (15-37) U/L ALT (16-63) U/L Alkaline Phosphatase (46-116) U/L Troponin I (<0.06) ng/mL Total Protein (6.4-8.2) g/dL Albumin (3.4-5.0) g/dL Urine Color (Yellow) Yellow Urine Clarity (Clear) Clear Urine pH (5-8) 5.5 Ur Specific [place] (1.005-1.025) 1.025 Urine Protein (Negative) mg/dL Negative Urine Ketones (Negative) mg/dL Negative Urine Blood (Negative) Negative Urine Nitrite (Negative) Negative Urine Bilirubin (Negative) Small H Urine Urobilinogen (Up TO 0.2) EU/dL 0.2 Ur Leukocyte Esterase (Negative) Negative Urine Glucose (Negative) mg/dL Negative Urine Opiates Screen (Negative) Negative Urine Methadone Screen (Negative) Negative Ur Barbiturates Screen (Negative) Negative Ur Tricyclics Screen (Negative) Negative Ur Amphetamines Screen (Negative) Negative U Benzodiazepines Scrn (Negative) Negative Urine Cocaine Screen (Negative) Negative Ur THC Screen (Negative) Negative Range/Units 06/06/20 06/06/20 08:30 08:30 WBC (4.4-10.8) 10^3/uL 9.54 RBC (4.36-5.78) 10^6/uL 3.04 L Hgb (13.5-17.5) g/dL 9.5 L Hct (40.0-50.0) % 28.4 L MCV (80-95) fL 93.4 MCH (27.0-33.0) pg 31.3 MCHC (32.0-36.0) % 33.5 RDW (11.8-14.1) % 13.1 Plt Count (130-400) 10^3/uL 414 H MPV (8.0-11.0) fL 10.8 Immature Gran % 0.0 Neutrophils % 64.0 Band Neutrophils % 17 Lymphocytes % 12.0 Atypical Lymphs % 1 Monocytes % 6.0 Eosinophils % 0.0 Basophils % 0.0 Nucleated RBC % % 0 Absolute Neutrophils (1.2-6.7) 10^3/uL 7.73 H Absolute Lymphocytes (1.2-3.4) 10^3/uL 1.24 Absolute Monocytes (0.1-0.8) 10^3/uL 0.57 Absolute Eosinophils (0.0-0.7) 10^3/uL 0.00 Absolute Basophils (0.0-0.2) 10^3/uL 0.00 RBC Morphology Normal VBG Lactate (0.6-1.4) mmol/L Sodium (136-145) mmol/L 137 Potassium (3.5-5.1) mmol/L 4.4 Chloride (98-107) mmol/L 100 Carbon Dioxide (21.0-32.0) mmol/L 25.2 Anion Gap (3-11) mmol/L 11.8 H BUN (7-18) mg/dL 89 H* Creatinine (0.70-1.30) mg/dL 3.74 H* Estimated GFR/1.73 m2 (mL/min/1.73m2) 16.42 Glucose (74-106) mg/dL 164 H Calcium (8.5-10.1) mg/dL 9.3 Magnesium (1.8-2.4) mg/dL 1.8 Total Bilirubin (0.2-1.0) mg/dL 0.4 AST (15-37) U/L 12 L ALT (16-63) U/L 12 L Alkaline Phosphatase (46-116) U/L 50 Troponin I (<0.06) ng/mL < 0.05 Total Protein (6.4-8.2) g/dL 5.6 L Albumin (3.4-5.0) g/dL 2.1 L Urine Color (Yellow) Urine Clarity (Clear) Urine pH (5-8) Ur Specific [place] (1.005-1.025) Urine Protein (Negative) mg/dL Urine Ketones (Negative) mg/dL Urine Blood (Negative) Urine Nitrite (Negative) Urine Bilirubin (Negative) Urine Urobilinogen (Up TO 0.2) EU/dL Ur Leukocyte Esterase (Negative) Urine Glucose (Negative) mg/dL Urine Opiates Screen (Negative) Urine Methadone Screen (Negative) Ur Barbiturates Screen (Negative) Ur Tricyclics Screen (Negative) Ur Amphetamines Screen (Negative) U Benzodiazepines Scrn (Negative) Urine Cocaine Screen (Negative) Ur THC Screen (Negative) Critical Care Time Critical Care Time Critical Care Time: Yes Total Critical Care Time: 90 Attestation: I spent greater than 90 minutes addressing this patient's immediate life threats. Please see MDM section of note. This time was spent engaged in work directly related to the patient's care, exclusive of separate procedures, and failure to initiate these interventions would have likely resulted in clinically significant or life threatening deterioration in the patient's condition.
[2020-06-06] MEDS: cefTRIAXone 1 GM/50 ML BAG IVPB ×2 (10:33→16:10)
[2020-06-06] MEDS: CLINDAMYCIN 600 MG/50 ML BAG 100 MG IVPB (11:04)
[2020-06-06 11:16] LABS: COVID-19 PCR Negative (Negative); Influenza A PCR Negative (Negative); Influenza B PCR Negative (Negative); RSV PCR Negative (Negative); Source Nasopharynx
[2020-06-06 11:17] LABS: Lactate 2.7 mmol/L (0.6-1.4)
[2020-06-06 11:32] LABS: Troponin I < 0.05 ng/mL (<0.06)
[2020-06-06 11:44] LABS: Procalcitonin 11.9 ng/mL
[2020-06-06] MEDS: Lidocaine 2% Jelly 6 ML SYR (13:01)
--- NOTE | 2020-06-06 13:16 | W.PM.HP.N ---
Date of service: 06/06/20 Time of Service: 13:16 Assessment and Plan Assessment and plan (1) Sepsis: Status: Acute Assessment and plan: Source of sepsis is probably from aspiration pneumonia. Will treat with norepinephrine to maintain a map of [address] Aburto has agreed to see the patient to place a central line for me. Continue IV fluid support and broad-spectrum antibiotics including ceftriaxone and clindamycin. As well as norepinephrine to maintain a map of 65 mm or better. Qualifiers: Sepsis type: sepsis due to unspecified organism Sepsis acute organ dysfunction status: with acute organ dysfunction Severe sepsis acute organ dysfunction type: acute renal failure Acute renal failure type: unspecified (2) Aspiration pneumonia: Status: Acute Assessment and plan: I performed a bedside swallowing evaluation with a glass of water and patient seemed to have difficulty gagging down the water. I am going to keep him n.p.o. for now and request a speech therapy evaluation for dysphagia. I will change his antibiotics to clindamycin in addition to ceftriaxone. Continue supportive care with supplemental oxygen and as needed aerosolized bronchodilators. Qualifiers: Aspiration pneumonia type: unspecified Laterality: right Lung location: lower lobe of lung Qualified Code(s): J69.0 - Pneumonitis due to inhalation of food and vomit (3) Acute kidney injury (nontraumatic): Status: Acute Assessment and plan: Combination of dehydration as well as sepsis. Continue IV fluid support monitor urine output monitor BMP avoid nephrotoxins. Adjust medications for renal dysfunction. (4) Dehydration: Status: Acute Assessment and plan: IV fluid hydration as above. (5) Type 2 diabetes mellitus: Status: Acute Assessment and plan: Was n.p.o. we will monitor blood sugars every 6 hours and cover with NovoLog insulin sensitive scale. I will also put him on a low-dose Lantus at night at half of his usual dose. 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 Not a candidate for enoxaparin due to acute kidney injury History of Present Illness History of Present Illness Chief Complaint: Aspiration pneumonia sepsis Narrative: History is limited due to the patient being aphasic due to a recent stroke. He is a 64-year-old gentleman who resides in a long-term in [facility] called [place]. His other medical history includes schizophrenia and type 2 diabetes mellitus for which she is on Metformin as well as hyperlipidemia and BPH. His caregivers called EMS because of acute mental status change in which she was poorly responsive. He reportedly had been taken poor oral intake over last few days and was passing dark-colored urine. Patient is nonverbal and has left-sided hemiparesis secondary to stroke. EMS noted him to be hypotensive and gave him a fluid bolus and he was noted to be 87% oxygen saturation on room air and was placed on nasal cannula for transport. Upon arrival he was tachycardic at a heart rate of 108 bpm and hypotensive with a blood pressure 100/48. Patient received a total of 2 L of IV fluid bolus and he remained tachycardic with low blood pressure reading. Labs show an elevated blood lactate level and he was started on Levophed for treatment of sepsis. Chest x-ray showed fluffy right opacity At the right lung base consistent with pneumonia. Concern was raised for aspiration. Patient was started on ceftriaxone in the emergency department 1 g and after my discussion with Dr. Ricardo Bellamy I recommend addition of clindamycin for coverage of aspiration. Clindamycin was chosen because of his penicillin allergy. Labs were consistent with an acute kidney injury with an elevated BUN of 89 creatinine 3.74 probably prerenal due to combination of dehydration and sepsis. Most recent BUN and creatinine were 24 and 1.26 as of May 25, 2020. Troponin I levels were less than 0.05x2 sets. Blood lactate on admission was elevated three-point 4 repeat level upon admission to the intensive care unit was 2.7. He has had a total of 3 L of IV fluids and norepinephrine drip had to be increased to 15 mcg/kg/min. Surgical consultation been requested for placement of central venous line. Patient is more alert and responsive although fairly nonverbal. He is able to get out yes and no but not able to hold onto to any conversation. He is able to gesture his wishes and points to TV indicating he wanted the TV turned on. I had a brief but very direct and simple discussion with him about CODE STATUS including intubation in the event of respiratory failure or CPR or defibrillation in the event of cardiac arrest. At this time he indicates he wants full resuscitation in the event of cardiopulmonary arrest. Review of Systems Unobtainable due to mental condition [facility] Medical History (Updated 06/06/20 @ 14:16 by Samuel Jenkins) Dementia History of CVA with residual deficit Schizophrenia Type 2 diabetes mellitus Social History Smoking risk assessment performed?: No Alcohol Intake: never Substance use type: does not use Meds Home Medications and Allergies Home Medications Medication Instructions Recorded Confirmed Type Lantus Solostar U-100 Insulin 10 unit SUBCUT .QHS 05/25/20 06/06/20 History aspirin 81 mg PO DAILY 05/25/20 06/06/20 History atorvastatin 40 mg PO .QHS 05/25/20 06/06/20 History benztropine 40 mg PO DAILY 05/25/20 06/06/20 History clopidogrel 75 mg PO DAILY 05/25/20 06/06/20 History fluoxetine 20 mg PO DAILY 05/25/20 06/06/20 History lisinopril 5 mg PO DAILY 05/25/20 06/06/20 History metformin 750 mg PO BID 05/25/20 06/06/20 History mirtazapine 15 mg PO .QHS 05/25/20 06/06/20 History olanzapine 5 mg PO .QAM 05/25/20 06/06/20 History olanzapine 20 mg PO DAILY 05/25/20 06/06/20 History tamsulosin 0.4 mg PO DAILY 05/25/20 06/06/20 History Allergies Allergy/AdvReac Type Severity Reaction Status Date / Time Penicillins Allergy Verified 06/06/20 07:53 Exam Narrative Exam Narrative: Late middle-aged male who is awake and responsive and able to indicate his wants and needs by pointing with his right hand. He seems to nod yes and no and is able to mouth out the words yes or no for me but otherwise is not conversant. HEENT is remarkable for dry mucous membranes Neck is supple nontender no JVD Lungs are clear anteriorly in the upper christy but posteriorly and at the bases he has markedly diminished breath sounds. Heart is tachycardic but regular without appreciable murmur or rub. Abdomen is soft and nondistended with normal active bowel sounds. Jamison catheter is in place and is draining clear dark yellow urine at this time. Results Labs Result diagrams: 06/06/20 08:30 06/06/20 08:30 Labs: Laboratory Results - last 24 hr 06/06/20 06/06/20 06/06/20 08:25 08:25 08:30 WBC RBC Hgb Hct MCV MCH MCHC RDW Plt Count MPV Immature Gran % Neutrophils % Band Neutrophils % Lymphocytes % Atypical Lymphs % Monocytes % Eosinophils % Basophils % Nucleated RBC % Absolute Neutrophils Absolute Lymphocytes Absolute Monocytes Absolute Eosinophils Absolute Basophils RBC Morphology VBG Lactate 3.4 H* Sodium Potassium Chloride Carbon Dioxide Anion Gap BUN Creatinine Estimated GFR/1.73 m2 Glucose Calcium Magnesium Total Bilirubin AST ALT Alkaline Phosphatase Troponin I Total Protein Albumin Procalcitonin Urine Color Yellow Urine Clarity Clear Urine pH 5.5 Ur Specific [place] 1.025 Urine Protein Negative Urine Ketones Negative Urine Blood Negative Urine Nitrite Negative Urine Bilirubin Small H Urine Urobilinogen 0.2 Ur Leukocyte Esterase Negative Urine Glucose Negative Urine Opiates Screen Negative Urine Methadone Screen Negative Ur Barbiturates Screen Negative Ur Tricyclics Screen Negative Ur Amphetamines Screen Negative U Benzodiazepines Scrn Negative Urine Cocaine Screen Negative Ur THC Screen Negative COVID-19 Source COVID-19 PCR Influenza Type A (PCR) Influenza Type B (PCR) RSV (PCR) 06/06/20 06/06/20 06/06/20 08:30 08:30 10:00 WBC 9.54 RBC 3.04 L Hgb 9.5 L Hct 28.4 L MCV 93.4 MCH 31.3 MCHC 33.5 RDW 13.1 Plt Count 414 H MPV 10.8 Immature Gran % 0.0 Neutrophils % 64.0 Band Neutrophils % 17 Lymphocytes % 12.0 Atypical Lymphs % 1 Monocytes % 6.0 Eosinophils % 0.0 Basophils % 0.0 Nucleated RBC % 0 Absolute Neutrophils 7.73 H Absolute Lymphocytes 1.24 Absolute Monocytes 0.57 Absolute Eosinophils 0.00 Absolute Basophils 0.00 RBC Morphology Normal VBG Lactate Sodium 137 Potassium 4.4 Chloride 100 Carbon Dioxide 25.2 Anion Gap 11.8 H BUN 89 H* Creatinine 3.74 H* Estimated GFR/1.73 m2 16.42 Glucose 164 H Calcium 9.3 Magnesium 1.8 Total Bilirubin 0.4 AST 12 L ALT 12 L Alkaline Phosphatase 50 Troponin I < 0.05 Total Protein 5.6 L Albumin 2.1 L Procalcitonin 11.9 Urine Color Urine Clarity Urine pH Ur Specific [place] Urine Protein Urine Ketones Urine Blood Urine Nitrite Urine Bilirubin Urine Urobilinogen Ur Leukocyte Esterase Urine Glucose Urine Opiates Screen Urine Methadone Screen Ur Barbiturates Screen Ur Tricyclics Screen Ur Amphetamines Screen U Benzodiazepines Scrn Urine Cocaine Screen Ur THC Screen COVID-19 Source COVID-19 PCR Influenza Type A (PCR) Influenza Type B (PCR) RSV (PCR) 06/06/20 06/06/20 06/06/20 10:00 10:00 10:15 WBC RBC Hgb Hct MCV MCH MCHC RDW Plt Count MPV Immature Gran % Neutrophils % Band Neutrophils % Lymphocytes % Atypical Lymphs % Monocytes % Eosinophils % Basophils % Nucleated RBC % Absolute Neutrophils Absolute Lymphocytes Absolute Monocytes Absolute Eosinophils Absolute Basophils RBC Morphology VBG Lactate 2.7 H* Sodium Potassium Chloride Carbon Dioxide Anion Gap BUN Creatinine Estimated GFR/1.73 m2 Glucose Calcium Magnesium Total Bilirubin AST ALT Alkaline Phosphatase Troponin I < 0.05 Total Protein Albumin Procalcitonin Urine Color Urine Clarity Urine pH Ur Specific [place] Urine Protein Urine Ketones Urine Blood Urine Nitrite Urine Bilirubin Urine Urobilinogen Ur Leukocyte Esterase Urine Glucose Urine Opiates Screen Urine Methadone Screen Ur Barbiturates Screen Ur Tricyclics Screen Ur Amphetamines Screen U Benzodiazepines Scrn Urine Cocaine Screen Ur THC Screen COVID-19 Source Nasopharynx COVID-19 PCR Negative Influenza Type A (PCR) Negative Influenza Type B (PCR) Negative RSV (PCR) Negative Last Vital Signs Temp 37.5 C 06/06/20 12:25 Pulse 111 H 06/06/20 13:12 Resp 18 06/06/20 13:12 BP 90/46 L 06/06/20 13:12 Pulse Ox 93 06/06/20 13:12 COVID-19 Screening Have you, or household traveled for leisure in last 14 days?: No
--- NOTE | 2020-06-06 14:00 | DI.RAD_ITS ---
EXAM: XR PORTABLE CHEST AP POST LINE CLINICAL HISTORY: left central line placement TECHNIQUE: COMPARISON: CR XR CHEST 1V IN DI DEPT from 06/06/2020 FINDINGS: Portable AP chest at 1445 hours. Note is again made of patchy right basilar intrapulmonary radiodens ities suggestive pneumonia, as noted on chest radiograph obtained earlier today. No significant ge ge in appearance of the lungs. There is interval insertion of a left central venous catheter, the tip of which lies in the superior vena cava. No evidence of pneumothorax. IMPRESSION: RADIATION DOSE DELIVERED: Total DLP Total DLP
[2020-06-06 14:09] LABS: Lactate 1.3 mmol/L (0.6-1.4)
[2020-06-06 14:32] LABS: Troponin I < 0.05 ng/mL (<0.06)
--- NOTE | 2020-06-06 15:23 | ROE_ITS ---
Date of service: 06/06/20 Time of Service: 14:00 Operative Note Operative Note DATE OF PROCEDURE: 06/06/20 PRE-OP DIAGNOSIS: sepsis, hypotension on pressors POST-OP DIAGNOSIS: same PROCEDURE: Left subclavian vein triple lumen central line placement Attempted left radial a-line SURGEON: Autumn Aburto ANESTHESIA: local (1% lIDOCAINE) ESTIMATED BLOOD LOSS: 10 PATHOLOGY: none sent COMPLICATIONS: None Patient was transported to: no change Patient's condition: critical Indications: Mr. Brewer is a 64 year old male s/p CVA with residual left sided weakness and speach impediment who was brought in from a intermediate. He was diagnosed with sepsis and pneumonia. he has been admitted to the ICU by Dr. Jenkins and I was asked to assist by placing a central line and a-line for pressors and monitoring. Risks, benefits and complications were reviewed with the patient and he wished to proceed Procedure Description: After informed consent was obtained the patient was placed in a supine position on his ICU bed. The head of the bed was lowered. A time out was done and his name, and procedure to be done were reviewed. Sharps were counted. The left chest wall was then prepped and draped in a standard fashion with chlorhexidine. Next 5 cc of 1% Lidocaine was injected into the dermis and subcutaneous tissue along the left clavicle. The introducer needle was then slowly advanced into the subclavian vein. Once I was able to pull venous blood into the syringe, the syringe was removed from the needle. The guidewire was then placed to about 10 cm and then I met resistance. The guidewire was removed and the indroducer needle was placed into the subclavian vein a second time. This time the guidewire was advanced easily without resistance into the subclavian vein. The needle was removed. A small incision was made with an 11 blade at the guidewire. The dilator was then placed over the guidewire into the vein. The dilator was removed and the tripple lumen catheter was placed over the guidewire into the vein to 15 cm. The guidewire was removed and needless valves were placed on each lumen. Each lumen was then aspirated and flushed with sterile saline. The Central line was then secured in place with 2-0 silk suture. The skin was cleaned and dried and an antibiotic wheel was applied at the skin. An occlusive dressing was then applied. The drapes were removed. Sharps were counted and were correct at the end of the procedure. The patient tolerated the procedure well. Stat CXR was ordered and was pending at the time of this dictation. Next his left wrist was placed over a rolled up towel and secured with tape. The radial artery was palpated. The skin was cleaned with chlorhexidine. Using an a-line kit I attempted to place the catheter into the artery under US guidence. I did get a flush of arterial blood 2 times, but when I attempted to pass the guidewire it did not thread easily. Aftyer 2 attempts I aborded and asked anesthesia to place the arterial line which he did.
--- NOTE | 2020-06-06 15:25 | W.SURGCON ---
Date of service: 06/06/20 Time of Service: 13:30 Assessment and Plan Assessment and plan (1) Sepsis: Status: Acute Assessment and plan: 64 year old male admitted with sepsis thought to be from aspiration pneumonia He is hypotensive requiring pressors. Left subclavian central line placement and a-line placement were discussed with the patient. Ris, benefits and complications were reviewed. Patient agreed to proceed Qualifiers: Sepsis type: sepsis due to unspecified organism Sepsis acute organ dysfunction status: with acute organ dysfunction Severe sepsis acute organ dysfunction type: acute renal failure Acute renal failure type: unspecified Severe sepsis shock status: unspecified Qualified Code(s): A41.9 - Sepsis, unspecified organism; R65.20 - Severe sepsis without septic shock; N17.9 - Acute kidney failure, unspecified History of Present Illness History of Present Illness Chief Complaint: SEPSIS, HYPOTENSION ON PRESSORS Narrative: History is limited due to the patient being aphasic due to a recent stroke. He is a 64-year-old gentleman who resides in a detention in [facility] called [place]. His caregivers called EMS because of acute mental status change in which he was poorly responsive. He reportedly had been taken poor oral intake over last few days and was passing dark-colored urine. Patient is minimaly verbal and has left-sided hemiparesis secondary to stroke. EMS noted him to be hypotensive and gave him a fluid bolus and he was noted to be 87% oxygen saturation on room air and was placed on nasal cannula for transport. Upon arrival he was tachycardic at a heart rate of 108 bpm and hypotensive with a blood pressure 100/48. Patient received a total of 2 L of IV fluid bolus and he remained tachycardic with low blood pressure reading. Labs show an elevated blood lactate level and he was started on Levophed for treatment of sepsis. He was admitted to the unit by Dr. Bryan. I was consulted to place a central line so the patient could safely continue on pressors. I was also asked to place an a-line to help with BP monitoring Consults Consult date: 06/06/20 Requesting physician: Samuel Jenkins Review of Systems Unobtainable due to mental condition [facility] Medical History Dementia History of CVA with residual deficit Schizophrenia Type 2 diabetes mellitus Social History Smoking risk assessment performed?: No Alcohol Intake: never Substance use type: does not use Exam Const General: comfortable and no acute distress Orientation: other (somnolent) [facility] Head: normocephalic and atraumatic Chest Chest: normal inspection of the chest Resp Effort & Inspection: normal respiratory effort Auscultation: diminished lung sounds bilaterally in the lower lung christy Cardio Rate: tachycardic Rhythm: regular rhythm Heart Sounds: no gallops, no murmurs and no rubs GI Inspection: normal to inspection Palpation: soft and nontender Auscultation: normal bowel sounds Results Last Vital Signs Temp 99.5 F 06/06/20 12:25 Pulse 119 H 06/06/20 14:16 Resp 22 06/06/20 14:16 BP 130/40 L 06/06/20 14:16 Pulse Ox 94 06/06/20 14:01 Labs Result diagrams: 06/06/20 08:30 06/06/20 08:30 Labs: Laboratory Results - last 24 hr 06/06/20 06/06/20 06/06/20 08:25 08:25 08:30 WBC RBC Hgb Hct MCV MCH MCHC RDW Plt Count MPV Immature Gran % Neutrophils % Band Neutrophils % Lymphocytes % Atypical Lymphs % Monocytes % Eosinophils % Basophils % Nucleated RBC % Absolute Neutrophils Absolute Lymphocytes Absolute Monocytes Absolute Eosinophils Absolute Basophils RBC Morphology VBG Lactate 3.4 H* Sodium Potassium Chloride Carbon Dioxide Anion Gap BUN Creatinine Estimated GFR/1.73 m2 Glucose Calcium Magnesium Total Bilirubin AST ALT Alkaline Phosphatase Troponin I Total Protein Albumin Procalcitonin Urine Color Yellow Urine Clarity Clear Urine pH 5.5 Ur Specific [place] 1.025 Urine Protein Negative Urine Ketones Negative Urine Blood Negative Urine Nitrite Negative Urine Bilirubin Small H Urine Urobilinogen 0.2 Ur Leukocyte Esterase Negative Urine Glucose Negative Urine Opiates Screen Negative Urine Methadone Screen Negative Ur Barbiturates Screen Negative Ur Tricyclics Screen Negative Ur Amphetamines Screen Negative U Benzodiazepines Scrn Negative Urine Cocaine Screen Negative Ur THC Screen Negative COVID-19 Source COVID-19 PCR Influenza Type A (PCR) Influenza Type B (PCR) RSV (PCR) 06/06/20 06/06/20 06/06/20 08:30 08:30 10:00 WBC 9.54 RBC 3.04 L Hgb 9.5 L Hct 28.4 L MCV 93.4 MCH 31.3 MCHC 33.5 RDW 13.1 Plt Count 414 H MPV 10.8 Immature Gran % 0.0 Neutrophils % 64.0 Band Neutrophils % 17 Lymphocytes % 12.0 Atypical Lymphs % 1 Monocytes % 6.0 Eosinophils % 0.0 Basophils % 0.0 Nucleated RBC % 0 Absolute Neutrophils 7.73 H Absolute Lymphocytes 1.24 Absolute Monocytes 0.57 Absolute Eosinophils 0.00 Absolute Basophils 0.00 RBC Morphology Normal VBG Lactate Sodium 137 Potassium 4.4 Chloride 100 Carbon Dioxide 25.2 Anion Gap 11.8 H BUN 89 H* Creatinine 3.74 H* Estimated GFR/1.73 m2 16.42 Glucose 164 H Calcium 9.3 Magnesium 1.8 Total Bilirubin 0.4 AST 12 L ALT 12 L Alkaline Phosphatase 50 Troponin I < 0.05 Total Protein 5.6 L Albumin 2.1 L Procalcitonin 11.9 Urine Color Urine Clarity Urine pH Ur Specific [place] Urine Protein Urine Ketones Urine Blood Urine Nitrite Urine Bilirubin Urine Urobilinogen Ur Leukocyte Esterase Urine Glucose Urine Opiates Screen Urine Methadone Screen Ur Barbiturates Screen Ur Tricyclics Screen Ur Amphetamines Screen U Benzodiazepines Scrn Urine Cocaine Screen Ur THC Screen COVID-19 Source COVID-19 PCR Influenza Type A (PCR) Influenza Type B (PCR) RSV (PCR) 06/06/20 06/06/20 06/06/20 10:00 10:00 10:15 WBC RBC Hgb Hct MCV MCH MCHC RDW Plt Count MPV Immature Gran % Neutrophils % Band Neutrophils % Lymphocytes % Atypical Lymphs % Monocytes % Eosinophils % Basophils % Nucleated RBC % Absolute Neutrophils Absolute Lymphocytes Absolute Monocytes Absolute Eosinophils Absolute Basophils RBC Morphology VBG Lactate 2.7 H* Sodium Potassium Chloride Carbon Dioxide Anion Gap BUN Creatinine Estimated GFR/1.73 m2 Glucose Calcium Magnesium Total Bilirubin AST ALT Alkaline Phosphatase Troponin I < 0.05 Total Protein Albumin Procalcitonin Urine Color Urine Clarity Urine pH Ur Specific [place] Urine Protein Urine Ketones Urine Blood Urine Nitrite Urine Bilirubin Urine Urobilinogen Ur Leukocyte Esterase Urine Glucose Urine Opiates Screen Urine Methadone Screen Ur Barbiturates Screen Ur Tricyclics Screen Ur Amphetamines Screen U Benzodiazepines Scrn Urine Cocaine Screen Ur THC Screen COVID-19 Source Nasopharynx COVID-19 PCR Negative Influenza Type A (PCR) Negative Influenza Type B (PCR) Negative RSV (PCR) Negative 06/06/20 06/06/20 13:52 13:52 WBC RBC Hgb Hct MCV MCH MCHC RDW Plt Count MPV Immature Gran % Neutrophils % Band Neutrophils % Lymphocytes % Atypical Lymphs % Monocytes % Eosinophils % Basophils % Nucleated RBC % Absolute Neutrophils Absolute Lymphocytes Absolute Monocytes Absolute Eosinophils Absolute Basophils RBC Morphology VBG Lactate 1.3 Sodium Potassium Chloride Carbon Dioxide Anion Gap BUN Creatinine Estimated GFR/1.73 m2 Glucose Calcium Magnesium Total Bilirubin AST ALT Alkaline Phosphatase Troponin I < 0.05 Total Protein Albumin Procalcitonin Urine Color Urine Clarity Urine pH Ur Specific [place] Urine Protein Urine Ketones Urine Blood Urine Nitrite Urine Bilirubin Urine Urobilinogen Ur Leukocyte Esterase Urine Glucose Urine Opiates Screen Urine Methadone Screen Ur Barbiturates Screen Ur Tricyclics Screen Ur Amphetamines Screen U Benzodiazepines Scrn Urine Cocaine Screen Ur THC Screen COVID-19 Source COVID-19 PCR Influenza Type A (PCR) Influenza Type B (PCR) RSV (PCR)
[2020-06-06] MEDS: Pantoprazole 40 MG VIAL IVP (16:08)
[2020-06-06] MEDS: Normal Saline Flush 10 ML SYR IVP (16:08)
[2020-06-06] MEDS: Heparin 5,000 UNITS/ML VIAL 5000 UNITS SC ×2 (16:09→22:18)
[2020-06-06 17:52] LABS: Bilirubin Negative (Negative); Blood Trace-intact (Negative); Clarity Clear (Clear); Glucose Negative (Negative); Ketones Negative (Negative); Leukocyte Esterase Negative (Negative); Nitrite Negative (Negative); Urobilinogen 0.2 EU/dL (Up TO 0.2); pH 5.5 (5-8)
[2020-06-06 18:00] LABS: Anion Gap 9.5 mmol/L (3-11); BUN 68 mg/dL (7-18); CO2 22.5 mmol/L (21.0-32.0); CREATININE 2.18 mg/dL (0.70-1.30); Calcium 8.4 mg/dL (8.5-10.1); Chloride 105 mmol/L (98-107); Estimated GFR 30.61 (mL/min/1.73m2); Glucose 168 mg/dL (74-106); Sodium 137 mmol/L (136-145)
[2020-06-06 18:13] LABS: Bacteria Negative HPF (Negative); C & S Indicated? No; Casts Negative LPF (Negative); Crystals Negative HPF (Negative); Epithelial Cells Negative HPF (Negative); Mucus Negative (Negative); Other Cells Negative (Negative); WBC 0-2 HPF (0-5)
[2020-06-06] MEDS: CLINDAMYCIN 900 MG/50 ML BAG 50 MG IVPB (18:23)
[2020-06-06] MEDS: Normal Saline 500 ML 100 ML IV (18:30)
[2020-06-06] MEDS: Insulin Aspart 300 UNITS/3 ML PEN SC (20:36)
[2020-06-06] MEDS: Insulin Glargine 300 UNITS/3 ML PEN SC (20:39)
[2020-06-07] VITALS (89 sets, daily range): BP systolic 81–141; BP diastolic 39–72; PULSE 75–118; RESP 14–31; TEMP 36.8–37.3; O2SAT 92–99
[2020-06-07] MEDS: DEXTROSE 5%-LACTATED RINGERS 1,000 ML 100 ML IV ×2 (00:37→12:21)
[2020-06-07] MEDS: CLINDAMYCIN 900 MG/50 ML BAG 50 MG IVPB ×3 (02:14→18:21)
[2020-06-07] MEDS: Heparin 5,000 UNITS/ML VIAL 5000 UNITS SC ×3 (04:51→20:25)
[2020-06-07] MEDS: Normal Saline Flush 10 ML SYR IVP (04:51)
[2020-06-07 06:38] LABS: Abs Immature Grans 0.18 10^3/uL (0.0-0.06); HCT 23.8 % (40.0-50.0); MCH 31.6 pg (27.0-33.0); MCHC 33.6 % (32.0-36.0); MCV 94.1 fL (80-95); MPV 10.5 fL (8.0-11.0); Nucleated RBC 0 %; RBC 2.53 10^6/uL (4.36-5.78); RDW 13.1 % (11.8-14.1); RDW-SD 45.7 fL; WBC 8.34 10^3/uL (4.4-10.8)
[2020-06-07 06:54] LABS: ALT 15 U/L (16-63); AST 22 U/L (15-37); Albumin 1.9 g/dL (3.4-5.0); Alkaline Phosphatase 49 U/L (46-116); Anion Gap 8.7 mmol/L (3-11); BUN 40 mg/dL (7-18); Bilirubin, Total 0.3 mg/dL (0.2-1.0); CO2 24.3 mmol/L (21.0-32.0); CREATININE 1.33 mg/dL (0.70-1.30); Chloride 109 mmol/L (98-107); Estimated GFR 54.13 (mL/min/1.73m2); Glucose 162 mg/dL (74-106); Potassium 3.6 mmol/L (3.5-5.1); Sodium 142 mmol/L (136-145); Total Protein 5.4 g/dL (6.4-8.2)
[2020-06-07 07:19] LABS: Absolute Eosinophil Count 0.17 10^3/uL (0.0-0.7); Absolute Monocyte Count 0.83 10^3/uL (0.1-0.8); Absolute Neutrophil Count 5.84 10^3/uL (1.2-6.7); Bands % 17; Diff Comment Manual Differential; Hypochromasia 1+; Platelet Count 390 10^3/uL (130-400)
[2020-06-07] MEDS: cefTRIAXone 2 GM/50 ML BAG IVPB (08:42)
[2020-06-07] MEDS: Insulin Aspart 300 UNITS/3 ML PEN SC ×2 (08:47→13:30)
--- NOTE | 2020-06-07 09:44 | PHACLINREV_ITS ---
Pharmacy Admission Review - Admission Clinical Review (Last Reviewed 06/06/20 @ 15:49 by Autumn Aburto MD) DVT prophylaxis (Acute) Type 2 diabetes mellitus (Acute) Dehydration (Acute) Acute kidney injury (nontraumatic) (Acute) Aspiration pneumonia (Acute) Sepsis (Acute) Penicillins Allergy (Verified 06/06/20 07:53) Height 5 ft 7 in Weight 62.6 kg SEPSIS, MAC, PNEUMONIA - Comments Comments/Follow Ups: Once diet advanced, will need med adjustments and insulin order changed. No home meds have been started at this time. Follow Micro for appropriateness, sensitivities and deescalation, watch for repeat Procalcitonin and/or chest xray to see if Pneumonia improving (treating for aspiriation Pneumonia-recent stroke, from a senior living admitted with acute mental status changes, pt is non-verbal) Patient has PCN allergy - Renal Dosing Renal Dosing: BUN 40 mg/dL (7-18) H D 06/07/20 06:07 Creatinine 1.33 mg/dL (0.70-1.30) H 06/07/20 06:07 Medications needing adjustments: Reviewed (CrCl~49ml/min-no med adjustments) - Anticoagulation Anticoagulation: Hgb 8.0 g/dL (13.5-17.5) L 06/07/20 06:07 Hct 23.8 % (40.0-50.0) L 06/07/20 06:07 Plt Count 390 10^3/uL (130-400) 06/07/20 06:07 Creatinine 1.33 mg/dL (0.70-1.30) H 06/07/20 06:07 DVT Prohphylaxis: Reviewed Medications: Heparin - Opiate Usage Evaluate Pain Scale/Pains Meds: N/A - Relevant Labs Sodium 142 mmol/L (136-145) 06/07/20 06:07 Potassium 3.6 mmol/L (3.5-5.1) 06/07/20 06:07 Chloride 109 mmol/L (98-107) H 06/07/20 06:07 Magnesium 1.8 mg/dL (1.8-2.4) 06/06/20 08:30 Electrolytes, C-Reactive P, ESR: Reviewed (Procalcitonin 11.9, Troponin negative x3, SCr improved from admission, Lactate level 2.7) - DM Control DM Control: Glucose 162 mg/dL (74-106) H 06/07/20 06:07 Finger Stick Blood Glucose 168 Finger Stick Blood Glucose 168 Finger Stick Blood Glucose 178 Insulin Dosing: Intervened (Novolog scale-NPO so changed order to Q6h, Lantus @ HS at half his normal dose) - Heart Failure/WI Heart Failure/WI: Troponin I < 0.05 ng/mL (<0.06) 06/06/20 13:52 EF%, NAIDA's, B-Blockers, Diuretics: Reviewed (Norepinephrine weight based infusio n being tapered possibly to off today, BP/HR improving) - BP Control BP Control: Blood Pressure [Left Arm] 111/44 Blood Pressure [Left Arm] 114/44 Blood Pressure [Right Radial 137/48 Artery] Blood Pressure [Right Radial 137/48 Artery] Blood Pressure [Right Radial 134/48 Artery] Blood Pressure [Right Radial 136/43 Artery] Blood Pressure [Right Radial 123/45 Artery] Blood Pressure [Right Arm] 114/52 Blood Pressure [Right Arm] 120/43 Blood Pressure 106/50 Blood Pressure 108/43 Blood Pressure 116/52 Blood Pressure 92/41 Blood Pressure 117/54 Blood Pressure 121/58 Blood Pressure 114/52 Blood Pressure 102/45 Blood Pressure 102/52 Blood Pressure 118/52 Blood Pressure 118/54 Blood Pressure 123/48 Blood Pressure 112/61 Blood Pressure 122/52 Blood Pressure 123/54 Blood Pressure 112/47 Blood Pressure 114/46 Blood Pressure 112/50 Blood Pressure 120/43 Blood Pressure 93/52 Blood Pressure 109/41 Blood Pressure 99/54 Blood Pressure 104/53 Blood Pressure 103/46 Blood Pressure 100/45 Blood Pressure 102/45 Blood Pressure 91/55 If elevated: Reviewed (Norepinephrine drip for sepsis-did have a central and A- line placed after admission) - Qtc Review If Elevated: Reviewed (QTC 477 (Home meds Remeron/Zyprexa/Fluoxetine)) - IV to PO Switch IV Medications: Reviewed (Pt is NPO at this time, home meds not ordered) - Home Meds Home Med List reviewed: Reviewed (not yet started) Relevent Home Meds Not ordered & why?: pt is currently NPO. Home meds not ordered at this time...will need to address. Does have Insulin coverage - Current meds Current Medication Order Review: Reviewed (APAP is ordered KS, so will need to adjust once taking orals/diet advanced. Novolog scale will need to be changed back to AC/HS once tolerating a diet) Antibiotic Activity - Pharmacy Antibiotic Review Pharmacy Antibiotic Activity: C/S review (preliminary blood cultures: Gram positive Cocci (Clinda/Rocephin)) - Antibiotic Information Antibiotic Review Info: preliminary blood cultures @ 12 hours: Gram positive Cocci (Clinda/Rocephin)
--- NOTE | 2020-06-07 11:43 | IN_ITS ---
Date of service: 06/07/20 Time of Service: 11:20 PT Notes Visit Reasons: SEPSIS, MAC, PNEUMONIA Inpatient Physical Therapy Evaluation Date: 06/07/20 Referring Doctor: Dr. Darrius Vidales PT Orders: PT CONSULT: limited ability to ambulate Precautions: fall, standard Patient Profile/Admitting Diagnosis: Patient admitted from ER with diagnosis of sepsis d/t aspiration pneumonia. PMHX: Dementia History of CVA with residual deficit Schizophrenia Type 2 diabetes mellitus Social History/Home Situation: Patient is a resident of [facility]. He is unable to provide any significant history due to aphasia, although review of EMR, he has a history of multiple falls. Equipment Owned/DME: Patient resides in assisted living. Unable to answer questions regarding use of assistive device. Subjective: Patient unable to provide subjective history. Objective: General Observation: Resting in bed with multiple lines. Patient appears anxious at initiation of session. Mental Status: Alert throughout session. Provides limited verbal responses. Intermittently follows single step command. Pain: denies Vital Signs: monitored on telemetry, pulse oximetry, and BP cuff throughout session ROM: Right Upper Extremity: Active shoulder flexion to 120 degrees. Full elbow motion. Wrist immobilized in protective splint. Able to fully open/close digits. Left Upper Extremity: Passive shoulder flexion to 80 degrees. Passive elbow motion allows 0-100 degrees with rigidity noted. Hand rests in closed position, although able to easily open passively. Right Lower Extremity: WFL Left Lower Extremity: WFL Strength: Right Upper Extremity: Difficult to assess due to inability to consistently follow commands. Patient is able to demonstrate unrestricted active movement of the RUE. Left Upper Extremity: Able to actively flex left shoulder to approx 30 degrees. No active movement of the elbow or wrist. Right Lower Extremity: Able to demonstrate active SLR and active bridge. Able to PF and DF ankle actively. Unable to resist for MMT due to limited ability to follow command. Left Lower Extremity: Able to demonstrate active knee flexion and extension in supine through partial range. Able to perform active hip flexion. Bed Mobility/Transfers: Patient able to perform partial supine-sit transfer with mod A. During transfer, patient's HR increases to 122 bpm. He was assisted back to supine, where he states I'm done. Gait: unable Balance: Static Sitting: unable Dynamic Sitting: unable Static Standing: unable Dynamic Standing: unable Special Tests: Mobility Limitations Standardized Measure [employer] AM-PAC 6 clicks Basic Mobility Inpatient Short Form: Raw Score: 8 CMS Score: 87% deficit Informed Consent/Education: Patient instructed in purpose of PT consult and plan of care. Assessment: Patient is a 64 year old male referred to physical therapy services with the diagnosis of sepsis. Patient presents with clinical signs and symptoms consistent with mobility deficits, with chronic mobility issues exacerbated by acute medical issues. During session today, patient is unable to ambulate, and it's unclear how mobile he is at baseline. As patient improves medically, will need to assess at bedside, for potential assisted transfers with quad cane versus FWW with platform for LUE. He demonstrates the following impairment level findings: 1. Chronic L hemiparesis 2. unable to consistently follow commands for safe transfers 3. decreased activity tolerance Impairments are contributing to the following functional limitations: 1. unable to transfer 2. unable to ambulate 3. unable to consistently follow commands Patient is assessed as High 91997 complexity based on the following: History: 64 year old male admitted for medical management of sepsis. Patient has chronic underlying mobility issues, and is a resident of an assisted living facility. He has a history of multiple falls, and underlying medical comorbidities as listed above. Examination: functional limitations as noted above Presentation: unstable Decision Making: high complexity Goals: Goals X1 week 1. Supine-Sit : min A 2. Sit-Supine : min A 3. Sit-Stand : mod A 4. Stand-Sit : mod A 5. Bed-Chair : mod A with least restrictive device 6. Chair-Bed : mod A with LRD 7. Gait : patient able to ambulate 6' with mod A and LRD Plan of Care/Treatment Plan: 1-2x/day, 7 days/week x 1 week. Plan of care has been reviewed with the [employer] providing the service under Physical Therapy direction. Initiate Physical Therapy intervention for strengthening, bed mobility, transfers, gait, stairs, balance training, use of assistive device. DISCHARGE RECOMMENDATIONS: return to assisted living with Home Health PT TREATMENT CODE/TIME: 11:20-11:40 ([id number]) Maria Dolores Lim, PT, DPT [facility]
[2020-06-07] MEDS: Pantoprazole 40 MG VIAL IVP (13:30)
--- NOTE | 2020-06-07 14:02 | PGE_ITS ---
Date of Service Date of service: 06/07/20 Time of Service: 14:02 Assessment and Plan Assessment and plan (1) Type 2 diabetes mellitus: Status: Acute Assessment and plan: Continue Lantus and SS insulin correction dosing Q 6H / pt is NPO Glucose readings of 145-178 so far today. He is on D5LR at 100ml/hr; decrease to 75ml/hr Qualifiers: Diabetes mellitus assisted insulin use: with ocean transportation intermediary use Diabetes mellitus complication status: without complication Qualified Code(s): E11.9 - Type 2 diabetes mellitus without complications; Z79.4 - alf (current) use of insulin (2) Acute kidney injury (nontraumatic): Status: Acute Assessment and plan: Presenting creatinine of 2.18; now 1.33 Monitor (3) Aspiration pneumonia: Status: Acute Assessment and plan: O2 saturation of 96% on 1L O2 per NC Initiated antibiotic treatment on admission with Rocephin and Clindamycin. Blood cx growing gram + cocci. Will stop Rocphine and cont Clindamycin to cover possibility of MRSA. If not MRSA can consider antibiotic alternatives. Qualifiers: Aspiration pneumonia type: unspecified Laterality: right Lung location: lower lobe of lung Qualified Code(s): J69.0 - Pneumonitis due to inhalation of food and vomit (4) Sepsis: Status: Acute Assessment and plan: Blood cx growing gram + cocci Antibiotic coverage with Rocephin and Clindamycin initially; d/c Rocephin. BP has recovered and is weaned off norepinephrine. Monitoring BP with arterial line; possibly d/c today. Qualifiers: Sepsis type: sepsis due to unspecified organism Sepsis acute organ dysfunction status: with acute organ dysfunction Severe sepsis acute organ dysfunction type: acute renal failure Acute renal failure type: unspecified Severe sepsis shock status: unspecified Qualified Code(s): A41.9 - Sepsis, unspecified organism; R65.20 - Severe sepsis without septic shock; N17.9 - Acute kidney failure, unspecified Subjective Subjective Patient reports: afebrile Interval history since last seen: Patient is alert. He is minimally verbal at baseline. States he is a little hungry. No pain. Exam Const General: cooperative and no acute distress Nutritional Appearance: average body habitus Orientation: alert Eyes Sclera: sclerae normal Pupils: PERRL Neck Neck: no JVD Resp Effort & Inspection: normal respiratory effort Auscultation: clear to auscultation bilaterally and diminished lung sounds bilaterally in the lower lung christy Cardio Rate: regular rate Rhythm: regular rhythm Heart Sounds: S1 normal and S2 normal GI Palpation: soft and nontender Auscultation: normal bowel sounds Extrem General: no pedal edema and no calf tenderness Psych Appearance: grossly normal Affect: blunted Attitude: cooperative Objective Last Vital Signs Temp 36.9 C 06/07/20 13:43 Pulse 91 H 06/07/20 13:43 Resp 22 06/07/20 13:43 BP 137/48 L 06/07/20 13:43 Pulse Ox 96 06/07/20 13:43 Laboratory Results - last 24 hr 06/06/20 06/06/20 06/06/20 13:52 13:52 17:30 WBC RBC Hgb Hct MCV MCH MCHC RDW Plt Count MPV Immature Gran % Neutrophils % Band Neutrophils % Lymphocytes % Monocytes % Eosinophils % Basophils % Nucleated RBC % Absolute Neutrophils Absolute Lymphocytes Absolute Monocytes Absolute Eosinophils Absolute Basophils RBC Morphology Hypochromasia VBG Lactate 1.3 Sodium 137 Potassium 4.0 Chloride 105 Carbon Dioxide 22.5 Anion Gap 9.5 BUN 68 H D Creatinine 2.18 H D Estimated GFR/1.73 m2 30.61 Glucose 168 H Calcium 8.4 L Total Bilirubin AST ALT Alkaline Phosphatase Troponin I < 0.05 Total Protein Albumin Urine Color Urine Clarity Urine pH Ur Specific [place] Urine Protein Urine Ketones Urine Blood Urine Nitrite Urine Bilirubin Urine Urobilinogen Ur Leukocyte Esterase Urine RBC Urine WBC Ur Epithelial Cells Urine Crystals Urine Bacteria Urine Casts Urine Mucus Urine Other Ur Culture Indicated? Urine Glucose 06/06/20 06/07/20 06/07/20 17:30 06:07 06:07 WBC 8.34 RBC 2.53 L Hgb 8.0 L Hct 23.8 L MCV 94.1 MCH 31.6 MCHC 33.6 RDW 13.1 Plt Count 390 MPV 10.5 Immature Gran % 0.0 Neutrophils % 53.0 Band Neutrophils % 17 Lymphocytes % 18.0 Monocytes % 10.0 Eosinophils % 2.0 Basophils % 0.0 Nucleated RBC % 0 Absolute Neutrophils 5.84 Absolute Lymphocytes 1.50 Absolute Monocytes 0.83 H Absolute Eosinophils 0.17 Absolute Basophils 0.00 RBC Morphology See below Hypochromasia 1+ VBG Lactate Sodium 142 Potassium 3.6 Chloride 109 H Carbon Dioxide 24.3 Anion Gap 8.7 BUN 40 H D Creatinine 1.33 H Estimated GFR/1.73 m2 54.13 Glucose 162 H Calcium 8.0 L Total Bilirubin 0.3 AST 22 ALT 15 L Alkaline Phosphatase 49 Troponin I Total Protein 5.4 L Albumin 1.9 L Urine Color Yellow Urine Clarity Clear Urine pH 5.5 Ur Specific [place] 1.020 Urine Protein Negative Urine Ketones Negative Urine Blood Trace-intact H Urine Nitrite Negative Urine Bilirubin Negative Urine Urobilinogen 0.2 Ur Leukocyte Esterase Negative Urine RBC 3-5 H Urine WBC 0-2 Ur Epithelial Cells Negative Urine Crystals Negative Urine Bacteria Negative Urine Casts Negative Urine Mucus Negative Urine Other Negative Ur Culture Indicated? No Urine Glucose Negative
--- NOTE | 2020-06-07 17:28 | PDOC.CMIN ---
- If Service Date Differs Date of service: 06/07/20 Time of Service: 17:28 Care Management Initial Assess REASON FOR HOSPITALIZATION:: Sepsis, MAC, PNA PAST MEDICAL HISTORY/PAST SURGICAL HISTORY:: Medical History. Dementia. History of CVA with residual deficit. Schizophrenia. Type 2 diabetes mellitus PREVIOUS FUNCTIONAL STATUS/SOCIAL/FAMILY SUPPORTS:: Michael lives at [facility] in [place], [place]. He is mostly non verbal, although he can answer yes/no questions, and uses gestures to have his needs met. He is dependent on his caregivers that assist with his ADL's at baseline. CURRENT FUNCTIONAL STATUS:: Michael was sitting up in bed when CM met with him. He was not able to hold a conversation, but did indicate that he was comfortable, and that he was being well taken care of. He was listening to music on a tablet, and stated that he loves music. CM discussed his care with his primary RN, who expressed concern that some of his meds were being held. CM will continue to follow. ADVANCE DIRECTIVES:: None on file. Per report, he had a conversation with the provider regarding code status, and would like to remain Full Code at this time. Has patient been provided with info about the portal/API?: No Did the patient sign up for the portal?: No CODE STATUS:: Full Code INSURANCE COVERAGE / FINANCIAL ISSUES:: MCR/ [employer] CURRENT HOME/COMMUNITY SERVICES/EQUIPMENT:: Michael lives at [facility], where he receives assistance with ADL's by caretakers. He is also a [employer] client, with support from [facility]. PRIMARY CARE PHYSICIAN:: Beth Del Castillo POTENTIAL DISCHARGE NEEDS:: Evaluations for further needs, follow up appointments. PATIENT/FAMILY EDUCATION NEEDS:: Review discharge instructions with pt and caregivers, discussion of self care needs and goals of care. ANTICIPATED BARRIERS TO DISCHARGE:: None identified at this time. TRANSPORTATION:: Anticipate via [facility] private vehicle. PLAN:: Anticipate Michael will return to [facility] once medically cleared. He may benefit from services, which CM will coordinate, if indicated. He will transport via [facility] private vehicle when ready. He will follow up with his PCP and discharge plan of care. CM will continue to follow.
[2020-06-07] MEDS: Normal Saline 500 ML 999 ML IV (22:41)
[2020-06-08] VITALS (80 sets, daily range): BP systolic 92–159; BP diastolic 35–73; PULSE 66–100; RESP 14–28; TEMP 36.2–36.4; O2SAT 94–98
--- NOTE | 2020-06-08 | DI.RAD_ITS ---
EXAM: XR PORTABLE CHEST AP CLINICAL HISTORY: pneumonia. TECHNIQUE: 2D digital imaging was performed. COMPARISON: CR XR PORTABLE CHEST AP POST LINE from 06/06/2020 FINDINGS: The distal tip of the left subclavian line is at the junction of the innominate vein and SVC. Medias tinum is not widened. Heart size normal. There is infiltrate in the right lower lobe now evident. No obvious pleural effusion. Left lung is relatively clear IMPRESSION: Right lower lobe infiltrate. No obvious pleural effusions. DATA REPOSITORY: RADIATION DOSE DELIVERED:
[2020-06-08] MEDS: DEXTROSE 5%-LACTATED RINGERS 1,000 ML 125 ML IV (00:45)
[2020-06-08] MEDS: CLINDAMYCIN 900 MG/50 ML BAG 50 MG IVPB ×3 (01:35→17:08)
[2020-06-08] MEDS: Heparin 5,000 UNITS/ML VIAL 5000 UNITS SC ×3 (03:56→20:38)
[2020-06-08] MEDS: Normal Saline Flush 10 ML SYR IVP ×2 (05:36→21:18)
[2020-06-08 07:06] LABS: Abs Immature Grans 0.26 10^3/uL (0.0-0.06); Absolute Basophil Count 0.04 10^3/uL (0.0-0.2); Absolute Eosinophil Count 0.31 10^3/uL (0.0-0.7); Absolute Lymphocyte Count 1.64 10^3/uL (1.2-3.4); Absolute Monocyte Count 0.46 10^3/uL (0.1-0.8); Basophils % 0.5; Eosinophils % 3.7; HCT 21.2 % (40.0-50.0); HGB 7.1 g/dL (13.5-17.5); Immature Grans % 3.1; Lymphocytes % 19.7; MCH 32.1 pg (27.0-33.0); MCHC 33.5 % (32.0-36.0); MCV 95.9 fL (80-95); Monocytes % 5.5; Neutrophils % 67.5; Nucleated RBC 0 %; RBC 2.21 10^6/uL (4.36-5.78); RDW-SD 45.5 fL; WBC 8.31 10^3/uL (4.4-10.8)
[2020-06-08 07:18] LABS: Anion Gap 7.2 mmol/L (3-11); BUN 21 mg/dL (7-18); CO2 24.8 mmol/L (21.0-32.0); CREATININE 0.97 mg/dL (0.70-1.30); Calcium 7.8 mg/dL (8.5-10.1); Chloride 111 mmol/L (98-107); Glucose 139 mg/dL (74-106); Potassium 3.5 mmol/L (3.5-5.1); Sodium 143 mmol/L (136-145)
[2020-06-08 07:25] LABS: Diff Comment Diff Reviewed; Hypochromasia 2+; Platelet Count 372 10^3/uL (130-400); Poikilocytes 1+
[2020-06-08] MEDS: POTASSIUM CHLORIDE/D5-0.45NACL 1,000 ML 150 MEQ IV ×3 (08:20→21:18)
[2020-06-08] MEDS: Clopidogrel 75 MG TAB PO (09:03)
[2020-06-08] MEDS: Aspirin E.C. 81 MG TABEC PO (09:03)
[2020-06-08] MEDS: Insulin Aspart 300 UNITS/3 ML PEN SC ×3 (09:03→20:36)
[2020-06-08] MEDS: OLANZapine 10 MG TAB 20 MG PO (09:03)
[2020-06-08] MEDS: OLANZapine 5 MG TAB PO (09:03)
[2020-06-08] MEDS: Tamsulosin 0.4 MG CAPCR PO (09:03)
[2020-06-08] MEDS: FLUoxetine 20 MG CAP PO (09:03)
[2020-06-08] MEDS: Benztropine 1 MG TAB 4 MG PO (09:18)
--- NOTE | 2020-06-08 09:47 | DI.VRAD_ITS ---
PROCEDURE INFORMATION: Exam: XR Chest, 1 View Exam date and time: 06/08/2020 9:37 AM Age: 64 years old Clinical indication: Condition or disease; Other: Pneumonia TECHNIQUE: Imaging protocol: XR of the chest Views: 1 view. COMPARISON: CR XR PORTABLE CHEST AP POST LINE 06/06/2020 2:34 PM FINDINGS: Tubes, catheters and devices: PICC line terminates in the superior vena cava Lungs: Opacities in the right base may represent atelectasis or pneumonia. . Pleural space: Unremarkable. No pleural effusion. No pneumothorax. Heart/Mediastinum: Stable cardiac silhouette Bones/joints: Unremarkable. IMPRESSION: Opacities in the right base may represent atelectasis or pneumonia. . Dictated and Authenticated by: Ivan Yusuf MD. Ordering:SARIAH Rizo MD
--- NOTE | 2020-06-08 10:25 | PT.INTREAT ---
Date of service: 06/08/20 Time of Service: 10:05 PT Notes Visit Reasons: SEPSIS, MAC, PNEUMONIA Inpatient Physical Therapy Treatment Note [facility] Date: 06/08/20 PRECAUTIONS:fall, standard SUBJECTIVE: Patient nods in agreement to treatment session. OBJECTIVE: PAIN: denies BED MOBILITY/TRANSFERS Rolling L/R: mod A Supine-sit: mod A x 2, HOB at 40 degrees Sit-supine: mod A x 2; max a x 2 for scooting up in bed Sit-stand: unable GAIT: unable THEREX: Patient tolerated sitting at EOB x 3 minutes with mod A x 1. He completed seated exercises with need for frequent cues and continuous mod A at the trunk due to right posterolateral lean. He also relies heavily on RUE support in sitting position. While in sitting, his HR remains 103 and under, and he does not display and FRIEDMAN. He completed sitting and supine exercises as noted on flowsheet. ASSESSMENT: Improved mobility and activity tolerance versus yesterday's session. Patient was able to effectively follow commands, and able to tolerate sitting at EOB. Deferred on standing due to Hgb of 7 this morning. PLAN: Continue progressing as patient is able to tolerates, with goal of performing transfers and short-distance ambulation with assistance. TREATMENT CODE/TIME: :05-11:25 ([id number])
[2020-06-08] MEDS: Magnesium Oxide 400 MG TAB PO (10:27)
--- NOTE | 2020-06-08 11:13 | W.PM.PROGNOT ---
Date of Service Date of service: 06/08/20 Time of Service: 11:13 Assessment and Plan Assessment and plan (1) Type 2 diabetes mellitus: Status: Acute Assessment and plan: Cont basal insulin 5 units QHS and sliding scale Q6h insulin correction dose Is NPO until swallow evaluation. Receiving D5 in his IV fluids. Qualifiers: Diabetes mellitus group home insulin use: with termite technician use Diabetes mellitus complication status: without complication Qualified Code(s): E11.9 - Type 2 diabetes mellitus without complications; Z79.4 - custodial (current) use of insulin (2) Aspiration pneumonia: Status: Acute Assessment and plan: WBC count remains normal. Cont clindamycin IV Qualifiers: Aspiration pneumonia type: unspecified Laterality: right Lung location: lower lobe of lung Qualified Code(s): J69.0 - Pneumonitis due to inhalation of food and vomit (3) Sepsis: Status: Acute Assessment and plan: Required restart of norephinephrine overnight and IV NS bolus. Will attempt to wean off pressor today. Qualifiers: Sepsis type: sepsis due to unspecified organism Sepsis acute organ dysfunction status: with acute organ dysfunction Severe sepsis acute organ dysfunction type: acute renal failure Acute renal failure type: unspecified Severe sepsis shock status: unspecified Qualified Code(s): A41.9 - Sepsis, unspecified organism; R65.20 - Severe sepsis without septic shock; N17.9 - Acute kidney failure, unspecified (4) Schizophrenia: Status: Acute Assessment and plan: Restart home psychiatric meds. He swallowed those without difficulty. (5) Dysphagia: Status: Acute Assessment and plan: H/O CVA At his group living facility his meat is ground for him. Swallow evaluation / speech consulted. Subjective Subjective Patient reports: no new complaints and afebrile; denies diarrhea, nausea and vomiting Interval history since last seen: He answers no when asked if he has any pain. He stated he isn't really hungry but would like water. Exam Const General: cooperative and no acute distress Nutritional Appearance: average body habitus Resp Effort & Inspection: normal respiratory effort Auscultation: vesicular breath sounds Cardio Rate: regular rate Rhythm: regular rhythm Heart Sounds: S1 normal and S2 normal GI Palpation: soft and nontender Auscultation: normal bowel sounds Extrem General: no pedal edema and no calf tenderness Objective Last Vital Signs Temp 36.4 C L 06/08/20 09:37 Pulse 82 06/08/20 10:31 Resp 26 H 06/08/20 11:00 BP 109/44 L 06/08/20 10:31 Pulse Ox 97 06/08/20 11:00 Laboratory Results - last 24 hr 06/08/20 06/08/20 06:05 06:05 WBC 8.31 RBC 2.21 L Hgb 7.1 L Hct 21.2 L MCV 95.9 H MCH 32.1 MCHC 33.5 RDW 13.0 Plt Count 372 MPV 11.0 Immature Gran % 3.1 Neutrophils % 67.5 Lymphocytes % 19.7 Monocytes % 5.5 Eosinophils % 3.7 Basophils % 0.5 Nucleated RBC % 0 Absolute Neutrophils 5.60 Absolute Lymphocytes 1.64 Absolute Monocytes 0.46 Absolute Eosinophils 0.31 Absolute Basophils 0.04 RBC Morphology See below Hypochromasia 2+ Poikilocytosis 1+ Sodium 143 Potassium 3.5 Chloride 111 H Carbon Dioxide 24.8 Anion Gap 7.2 BUN 21 H D Creatinine 0.97 Estimated GFR/1.73 m2 >= 60.00 Glucose 139 H Calcium 7.8 L
--- NOTE | 2020-06-08 11:20 | PDOC.CMPRO ---
- If Service Date Differs Date of service: 06/08/20 Time of Service: 11:20 Care Management Progress Note S/O: Per report, Michael remains at ICU level of care. Speech has been consulted for a swallow evaluation. He is NPO to prepare for the swallow eval. MD will attempt to wean of pressor today. He will return to [facility] once medically cleared. PT continues to work with him. CM will continue to follow. A: Michael is a 64 year old male admitted to [facility] on 06/06/20 with Sepsis, MAC, PNA. P: Anticipate Michael will return to [facility] once medically cleared. He may benefit from services, which CM will coordinate, if indicated. He will transport via [facility] private vehicle when ready. He will follow up with his PCP and discharge plan of care. CM will continue to follow.
[2020-06-08] MEDS: Pantoprazole 40 MG VIAL IVP (13:13)
[2020-06-08] MEDS: Atorvastatin 40 MG TAB PO (21:38)
[2020-06-08] MEDS: Mirtazapine 15 MG TAB PO (21:39)
[2020-06-08] MEDS: Insulin Glargine 300 UNITS/3 ML PEN SC (21:41)
[2020-06-09] VITALS (30 sets, daily range): BP systolic 100–139; BP diastolic 43–100; PULSE 63–108; RESP 12–29; TEMP 36.3–37.4; O2SAT 93–98
[2020-06-09] MEDS: Acetaminophen 650 MG SUPP PR (00:36)
[2020-06-09] MEDS: CLINDAMYCIN 900 MG/50 ML BAG 50 MG IVPB ×3 (02:01→18:40)
[2020-06-09] MEDS: Normal Saline Flush 10 ML SYR IVP ×3 (02:02→18:53)
[2020-06-09] MEDS: POTASSIUM CHLORIDE/D5-0.45NACL 1,000 ML 150 MEQ IV (03:36)
[2020-06-09] MEDS: Heparin 5,000 UNITS/ML VIAL 5000 UNITS SC ×3 (05:28→20:46)
[2020-06-09] MEDS: Benztropine 1 MG TAB 4 MG PO (08:25)
[2020-06-09] MEDS: Magnesium Oxide 400 MG TAB PO ×2 (08:26→20:35)
[2020-06-09] MEDS: OLANZapine 5 MG TAB PO (08:26)
[2020-06-09] MEDS: Clopidogrel 75 MG TAB PO (08:26)
[2020-06-09] MEDS: FLUoxetine 20 MG CAP PO (08:26)
[2020-06-09] MEDS: Tamsulosin 0.4 MG CAPCR PO (08:26)
[2020-06-09] MEDS: Aspirin E.C. 81 MG TABEC PO (08:26)
[2020-06-09] MEDS: OLANZapine 10 MG TAB 20 MG PO (08:26)
[2020-06-09 08:35] LABS: Abs Immature Grans 0.51 10^3/uL (0.0-0.06); HCT 22.4 % (40.0-50.0); HGB 7.4 g/dL (13.5-17.5); MCH 31.9 pg (27.0-33.0); MCV 96.6 fL (80-95); Nucleated RBC 0 %; RBC 2.32 10^6/uL (4.36-5.78); RDW-SD 45.4 fL
[2020-06-09] MEDS: Insulin Aspart 300 UNITS/3 ML PEN SC (08:45)
[2020-06-09 08:53] LABS: Absolute Lymphocyte Count 1.19 10^3/uL (1.2-3.4); Absolute Neutrophil Count 6.12 10^3/uL (1.2-6.7); Atypical Lymphocytes % 1; Bands % 5; Platelet Count 387 10^3/uL (130-400)
[2020-06-09 08:54] LABS: Absolute Eosinophil Count 0.34 10^3/uL (0.0-0.7); Absolute Monocyte Count 0.51 10^3/uL (0.1-0.8); Diff Comment Manual Differential; Metamyelocytes % 2; Myelocytes % 1; Poikilocytes 1+; Polychromasia Present
[2020-06-09 09:04] LABS: Magnesium 1.3 mg/dL (1.8-2.4)
[2020-06-09 09:09] LABS: ALT 38 U/L (16-63); AST 32 U/L (15-37); Albumin 1.7 g/dL (3.4-5.0); Alkaline Phosphatase 50 U/L (46-116); Anion Gap 6.2 mmol/L (3-11); BUN 8 mg/dL (7-18); Bilirubin, Total 0.2 mg/dL (0.2-1.0); CO2 22.8 mmol/L (21.0-32.0); CREATININE 0.83 mg/dL (0.70-1.30); Calcium 7.3 mg/dL (8.5-10.1); Chloride 111 mmol/L (98-107); Glucose 131 mg/dL (74-106); Potassium 3.8 mmol/L (3.5-5.1); Sodium 140 mmol/L (136-145); Total Protein 5.2 g/dL (6.4-8.2)
[2020-06-09] MEDS: POTASSIUM CHLORIDE/D5-0.45NACL 1,000 ML 75 MEQ IV ×2 (09:29→22:24)
[2020-06-09] MEDS: MAGNESIUM SULFATE 2 GM/50 ML BAG IVPB (09:45)
[2020-06-09] MEDS: Pantoprazole 40 MG VIAL IVP (13:32)
--- NOTE | 2020-06-09 13:35 | DM INPTCON_ITS ---
Date of service: 06/09/20 Time of Service: 13:35 Diabetes Inpatient Consult DESCRIPTION/ASSESSMENT: 64 year old male admitted with MAC,, with hx of dyphagia, aspiration PNA, Schizo disorder, DM2 and recent CVA. BMI wnl and stable. Resident of assisted living home. Most recent A1C: 10.1% (05/17/20) indicates poorly controlled DM. Has been NPO x 3 days, awaiting BROKERAGE MANAGER evaluation. Remains full code. Home Meds include 750 mg metformin BID, 10 units lantus at HS. Met with Michael today, he was unable to engage in conversation and not appropriate at this time for education. Met with career development specialist, [facility] will manage his DM per MD recommendations. Diabetes Self Management education not appropriate at this time. At high risk for complications associated with Dm in view of elevated A1C. Also at high nutritional risk in view of extended period of time with no po and low BMI for age. INTERVENTION: NPO, awaiting BROKERAGE MANAGER evaluation and diet progression PLAN: Advance diet douglas per BROKERAGE MANAGER recommendations If unable to advance diet in next 24 hours, consider nutrition support Time Spent in Nutritional Counseling and Treatment: 5 min
--- NOTE | 2020-06-09 14:51 | W.PM.PROGNOT ---
Date of Service Date of service: 06/09/20 Time of Service: 14:53 Assessment and Plan Assessment and plan (1) Dysphagia: Status: Acute Assessment and plan: Speech evaluation pending. At his senior care, his meat is ground. Swallowing his meds w/o difficulty. (2) Schizophrenia: Status: Acute Assessment and plan: Cont home meds. No behavioral concerns. (3) Type 2 diabetes mellitus: Status: Acute Assessment and plan: Cont basal / bolus insulin and monitoring. Qualifiers: Diabetes mellitus prison insulin use: with long chain dyeing machine operator use Diabetes mellitus complication status: without complication Qualified Code(s): E11.9 - Type 2 diabetes mellitus without complications; Z79.4 - longterm (current) use of insulin (4) Acute kidney injury (nontraumatic): Status: Acute Assessment and plan: Resolved. Creatinine now 0.83. (5) Aspiration pneumonia: Status: Acute Assessment and plan: Cont IV clindamycin today. Likely change to oral tomorrow. Blood culture growing 2 staph species; likely contaminants. Qualifiers: Aspiration pneumonia type: unspecified Laterality: right Lung location: lower lobe of lung Qualified Code(s): J69.0 - Pneumonitis due to inhalation of food and vomit (6) Sepsis: Status: Acute Assessment and plan: Resolved. Off pressors and IV fluid rate decreased. Qualifiers: Sepsis type: sepsis due to unspecified organism Sepsis acute organ dysfunction status: with acute organ dysfunction Severe sepsis acute organ dysfunction type: acute renal failure Acute renal failure type: unspecified Severe sepsis shock status: unspecified Qualified Code(s): A41.9 - Sepsis, unspecified organism; R65.20 - Severe sepsis without septic shock; N17.9 - Acute kidney failure, unspecified Subjective Subjective Patient reports: afebrile Interval history since last seen: Michael doesn't verbalize spontaneously but does answer simple questions and gives short answers. States he doesn't have pain or feel short of breath. Exam Const General: cooperative and no acute distress Nutritional Appearance: average body habitus Orientation: alert Resp Effort & Inspection: normal respiratory effort Auscultation: bronchovesicular breath sounds Cardio Rate: regular rate Rhythm: regular rhythm Heart Sounds: S1 normal and S2 normal GI Palpation: soft and nontender Auscultation: normal bowel sounds Skin General skin exam: no rashes or lesions noted Extrem General: no pedal edema and no calf tenderness Objective Last Vital Signs Temp 37.4 C 06/09/20 14:22 Pulse 75 06/09/20 14:22 Resp 16 06/09/20 14:22 BP 130/60 06/09/20 14:22 Pulse Ox 97 06/09/20 14:22 Laboratory Results - last 24 hr 06/09/20 06/09/20 06/09/20 08:20 08:20 08:20 WBC 8.50 RBC 2.32 L Hgb 7.4 L Hct 22.4 L MCV 96.6 H MCH 31.9 MCHC 33.0 RDW 13.0 Plt Count 387 MPV 10.0 Immature Gran % See Differential Neutrophils % 67.0 Band Neutrophils % 5 Lymphocytes % 13.0 Atypical Lymphs % 1 Monocytes % 6.0 Eosinophils % 4.0 Basophils % 0.0 Metamyelocytes % 2 Myelocytes % 1 Nucleated RBC % 0 Absolute Neutrophils 6.12 Absolute Lymphocytes 1.19 L Absolute Monocytes 0.51 Absolute Eosinophils 0.34 Absolute Basophils 0.00 RBC Morphology See below Polychromasia Present Poikilocytosis 1+ Sodium 140 Potassium 3.8 Chloride 111 H Carbon Dioxide 22.8 Anion Gap 6.2 BUN 8 D Creatinine 0.83 Estimated GFR/1.73 m2 >= 60.00 Glucose 131 H Calcium 7.3 L Magnesium 1.3 L Total Bilirubin 0.2 AST 32 ALT 38 Alkaline Phosphatase 50 Total Protein 5.2 L Albumin 1.7 L
--- NOTE | 2020-06-09 14:52 | PDOC.CMPRO ---
- If Service Date Differs Date of service: 06/09/20 Time of Service: 14:52 Care Management Progress Note S/O: Michael was sleeping when CM attempted to visit him. He was transitioned to M/S today. CM spoke to Robyn at [facility], who is concerned about Michael returning there, as he has been declining in health the past few weeks, and she doesn't think he is appropriate for their level of care. JONO stated that [facility] does have responsibility in planning for their resident's next steps. She reported that Michael has a guardian, his sister, Lilian David, but Lilian has not been able to be reached since 2017. CM called Satnam, [facility] [employer]TER supportive employment case manager, who reported that they have not had any luck getting in touch with Lilian either. Satnam provided phone numbers for Lilian, as well as a brother, Ed. CM left a message for Lilian, but was able to talk to Ed. Ed stated that he would be willing to participate in planning for Michael' next steps, and goals for healthcare, if Lilian was not willing or able to connect. He provided two new phone numbers for Lilian, which CM called and left messages on. CM later called Michelle Phan CCC at [facility], who reported that she has been assisting Robyn with placement, but they first were trying to determine who will be legally able to make decisions for Michael if his guardian is not willing to participate. Michelle has reached out to the carpenter ship who wrote the guardian documents, and will update JONO once additional information is available. Rob[facility] stated to CM that she would be willing to take him back after short term rehab, as he may be able to return to his baseline. CM sent referrals to [facility] and the [facility] for short term rehab, and communicated how well he is doing at [facility] during this admission. [facility] extended a bed offer when he is ready to transition to short term rehab. CM will continue to follow. Contact Numbers: Jennifer Carlson- (home) [phone]; (cell) [phone]. Call [facility] number on file first. Michelle Phan CCC, [facility]- [phone] Lilian David, Guardian, sister- [phone]; [phone] Ed Daniella brother- [phone] A: Michael is a 64 year old male admitted to [facility] on 06/06/20 with Sepsis, MAC, PNA. P: Anticipate Michael will return to [facility] for short term rehab once medically cleared. He will transport via [facility] private vehicle when ready. He will follow up with his PCP and discharge plan of care. CM will continue to follow.
--- NOTE | 2020-06-09 15:24 | PTTR_ITS ---
Date of service: 06/09/20 Time of Service: 10:35 PT Notes Visit Reasons: SEPSIS, MAC, PNEUMONIA Inpatient Physical Therapy Treatment Note [facility] Date: 06/09/2020 PRECAUTIONS: Fall SUBJECTIVE: Bradley is limited in verbal communication, but indicates that he is agreeable to participating in PT. OBJECTIVE: Patient is difficult to rouse, in both a.m. and p.m., although is able to follow instructions well. PAIN: No c/o pain BED MOBILITY/TRANSFERS Supine-sit: Mod A with HOB at 40 degrees Sit-stand: Min A with STEDY Stand-sit: CGA with STEDY Bed-Chair: SBA with STEDY GAIT: Unable THEREX: Patient was instructed in several LE and UE strengthening exercises, while seated at EOB in a.m. and while standing in STEDY in p.m., as per flow sheet. LAQ and all UE exercises are performed active assisted. Patient also p erforms functional [id number] exercise in STEDY, and tolerated static standing with STEDY support x5 minutes in both a.m. and p.m. ASSESSMENT: Patient tolerated standing in STEDY today, and was able to participate in bed mobility and transfers. He was able to follow instructions to complete both UE and LE strengthening exercises, although appears very fatigued. PLAN: Continue with global strengthening as well as bed mobility and transfer training utilizing STEDY, progressing to FWW when appropriate. TREATMENT CODE/TIME: Session 1: 35 minutes; [id number] x2 Session 2: 25 minutes; [id number], [id number]
--- NOTE | 2020-06-09 17:17 | STREC_ITS ---
Date of service: 06/09/20 Time of Service: 17:17 Speech Therapy Recommendations Report ST Recommendations: Patient seen for CSE in early AM while in ICU and again on Med/Surg in evening; patient is not appropriate for enteral nutrition per evaluation today given difficulties with exp/rec communication secondary to aphasia and is deemed appropriate for po intake as outlined below; discussed all recommendations with Dr. Vidales and Nursing. Full OCEAN EXPORT COORDINATOR Report to follow. OCEAN EXPORT COORDINATOR Recommendations: Please ensure patient has access to communication board to express wants/needs beyond Y/N questions. Risk management: Oral hygiene QID, 4x/day (use toothbrush for tongue, toothette as needed to address oral residue). HOB/chair upright for all po intake, upright for 30 minutes after po intake; Encourage physical mobility as tolerated. Diet texture recommendations: IDDSI Level 4-Pureed Solids, Level 2-Mildly thick liquids via teaspoon only as tolerated *Encourage ice chips between meals, 1 at a time via teaspoon *Pills in puree as appropriate, via teaspoon/1 at a time Full assist for all p.o. intake: - via teaspoon only - alternate tsp of puree with tsp of mildly thick liquids - slow rate - prior to offering next bite: allow patient time to respond if he has swallowed, ask Y/N question to confirm if coughing during p.o. intake, encourage patient to continue strong cough and allow for RR disaster recovery analyst referrals: 1 Project/Production Manager Imaging 2 Palliative Care Consult Instrumentation: N/A Ancillary tests: N/A Please feel free to contact me with any questions. Thank you for this referral. Etelvina García MA [facility]-OCEAN EXPORT COORDINATOR [phone]
--- NOTE | 2020-06-09 17:35 | W.SPSTE ---
Date of service: 06/09/20 Time of Service: 17:20 Subjective Patient received in ICU, initially lethargic but easily aroused and agreeable to evaluation, unable to fully communicate wants/needs effectively, but does benefit from use of verbal Y/N questions and reference to AAC board; unable to demonstrate comprehension of recommendations for safe p.o. intake upon discharge once deemed medically stable, will require significant assist from caregivers. Patient seen by WIRE DRAWING MACHINE OPERATOR again on Med/Surg in evening for completion of clinical swallowing evaluation. Objective Objective [facility]cf Goals: Patient will tolerate least restrictive diet with negative overt s/s aspiration; caregivers will demonstrate understanding of precautions as outlined to reduce risks of recurrent pna, airway compromise, and effective communication strategies to ensure quality of life for patient. Short Term Goals: Patient will tolerate IDDSI Level 4-Pureed Solids, Level 2-Mildly thick liquids diet via teaspoon, ice chips between meals, 1 at a time via teaspoon, and pills in puree as appropriate/1 at a time with negative overt s/s aspiration provided full assist for feeding and use of techniques as outlined prior to discharge from unit Caregivers will demonstrate understanding of precautions as outlined to reduce risks of recurrent pna, airway compromise Caregivers will perform verbal teachback of recommendations to reduce risk for aspiration pna Caregivers will demonstrate understanding and use of effective communication strategies in context of patient's aphasia to ensure quality of life for patient Assessment Referring Doctor: Dr Jenkins WIRE DRAWING MACHINE OPERATOR Orders: NPO, concern for aspiration Precautions: Fall, Standard HPI: Pt is a 64 year old male who was admitted from ER with diagnosis of sepsis d/t aspiration pneumonia. PMHx: Schizophrenia, DM2, aphasia and L hemiparesis s/p CVA, dementia Social History/Home Situation: Pt lives at [facility] with some assist available OBJECTIVE: Predisposing dysphagia risk factors: CVA, L hemiparesis Clinical signs of possible chronic dysphagia: unclear if aspiration pneumonia or pneumonitis s/p inhalation of vomit per chart review Precipitating dysphagia risk factors / triggering event: sepsis, pneumonia Temp: 98 F Sp02: 99% RR: 20 / on room air Cranial nerve exam / Oral Motor: unable to follow commands for full CNE/OME today CN V: facial sensation intact to LT Noted lingual groping, unclear if this is behavioral or due to dry mouth/effect of NPO status CN IX/X: unable to view palatal elevation; VQ WFL Dentition/Oral Structures/Hygiene: edentulous, adequate oral hygiene requiring assist from caregivers Language: significant deficits noted in verbal expression/fluency, naming, repetition; does demonstrate use of automatic phrases, will answer Y/N questions; and auditory comprehension reduced, however appears WFL if asked Y/N questions in simple context/with use of visual aids (has AAC board on unit, some difficulties at times) Hearing: Unknown Mental Status: Alert and able to respond to Y/N questions, unclear of accuracy level given informal assessment Speech: WFL Laryngeal function exam: Secretions: WFL Vocal quality: WFL MPT: DNT S/Z ratio: DNT Pitch range: WFL Cough: (volitional) perceptually WFL PO intake Ice Chips: WFL via tsp (no larger than 10 mm size, melted down) IDDSI 0: via teaspoon, cup sip - overt s/sx aspiration - cough IDDSI 2: occ overt s/sx aspiration - throat clear, cough IDDSI 4: occ overt s/sx aspiration - throat clear, cough Karina Swallow Protocol: Unable to administer secondary to patient's difficulties with UE movement, deficits in receptive language/communication Notes: Per interview with Lila at [facility], patient does not demonstrate change from baseline re: speech/language/cognitive functioning at this time, however had previously been tolerating thin liquids, minced/moist soild textures. IMPRESSIONS: Patient is at moderate-high risk for aspiration-related pulmonary complication; good oral hygiene, careful hand feeding, and improvements in physical mobility and overall pulmonary function likely to further reduce this risk. Unable to determine presence of aspiration without objective imaging of swallowing at this time. WIRE DRAWING MACHINE OPERATOR spoke with Lila at [facility] and will try to reach Robyn re: further info on patient's baseline communication and hx of modified diet textures/assist; patient is not appropriate for enteral nutrition at time of evaluation today given reduced exp/rec communication abilities secondary to residual aphasia and appears able to safely tolerate small amounts of controlled po intake; if unable to maintain nutrition by mouth, may be appropriate for further consultation re: wants/needs with regard to objective swallow imaging (FEES or VFSS/MBSS) once guardians can be contacted for plan of care discussion, to further identify swallowing anatomy/physiology and potential for treatment plan of care as needed. Pt is deemed appropriate for po intake with precautions as outlined below; discussed all recommendations with Dr. Vidales and Nursing. May consider following options: (a) NPO w/ long-term enteral feeding route (e.g., PEG) - this option does not reduce probability of aspiration of secretions or mortality & will likely reduce QOL (b) Oral diet/PO comfort feedings, despite unknown aspiration/malnutrition/dehydration risk. See risk management for po intake below. Recommendations: Patient is able to communicate wants/needs when asked Y/N questions, also understands gestures/visuals Please ensure patient has access to communication board to express wants/needs beyond Y/N questions. Risk management: Oral hygiene QID, 4x/day (use toothbrush for tongue, toothette as needed to address oral residue). HOB/chair upright for all po intake, upright for 30 minutes after po intake; Encourage physical mobility as tolerated. Diet texture recommendations: IDDSI Level 4-Pureed Solids, Level 2-Mildly thick liquids via teaspoon only as tolerated *Encourage ice chips between meals, 1 at a time via teaspoon *Pills in puree as appropriate, via teaspoon/1 at a time Full assist for all p.o. intake: - via teaspoon only - alternate tsp of puree with tsp of mildly thick liquids - slow rate - prior to offering next bite: allow patient time to respond if he has swallowed, ask Y/N question to confirm if coughing during p.o. intake, encourage patient to continue strong cough and allow for RR ice sculptor referrals: 1 Brush Operator follow up 2 Palliative Care Consult Instrumentation: N/A at this time. May be appropriate for FEES or VFSS/MBSS once discharged if able to maintain alertness level, with education needed for patient/guardians as necessary Ancillary tests: N/A Plan WIRE DRAWING MACHINE OPERATOR to follow while on unit. Recommend continued WIRE DRAWING MACHINE OPERATOR services upon discharge (SNF WIRE DRAWING MACHINE OPERATOR or WIRE DRAWING MACHINE OPERATOR if returning to [facility]dc) Please feel free to contact me with any questions. Thank you for this referral. Etelvina García MA [facility]-WIRE DRAWING MACHINE OPERATOR [phone] WIRE DRAWING MACHINE OPERATOR CPT Code: 48488 Clinical Swallowing Evaluation
[2020-06-09] MEDS: Mirtazapine 15 MG TAB PO (21:25)
[2020-06-09] MEDS: Insulin Glargine 300 UNITS/3 ML PEN SC (21:25)
[2020-06-09] MEDS: Atorvastatin 40 MG TAB PO (21:25)
--- NOTE | 2020-06-10 | DI.US_ITS ---
EXAM: US UPPER EXTREMITY VENOUS LT CLINICAL HISTORY: swelling. PICC line in arm TECHNIQUE: Ultrasound performed using standard protocol. COMPARISON: US US CAROTID from 04/23/2020 FINDINGS: Duplex venous ultrasound of the left upper extremity was performed according to the usual protocol. There is an IV catheter in place in the forearm. There is a 2.4 cm in diameter thrombus in a left ra dial vein just proximal to the insertion of the catheter. No other thrombus identified in the deep or superficial veins. IMPRESSION: Localized DVT in a left radial vein associated with IV catheter insertion site. No other significant findings. DATA REPOSITORY:
[2020-06-10] MEDS: CLINDAMYCIN 900 MG/50 ML BAG 50 MG IVPB ×2 (02:08→10:33)
[2020-06-10] MEDS: Heparin 5,000 UNITS/ML VIAL 5000 UNITS SC ×2 (04:47→12:16)
[2020-06-10 07:20] VITALS: BP 183/73; PULSE 97; RESP 30; TEMP 37.2; O2SAT 99
[2020-06-10 07:32] LABS: Abs Immature Grans 0.62 10^3/uL (0.0-0.06); HCT 22.9 % (40.0-50.0); HGB 7.5 g/dL (13.5-17.5); MCH 31.8 pg (27.0-33.0); MCHC 32.8 % (32.0-36.0); MPV 10.5 fL (8.0-11.0); Nucleated RBC 0 %; Platelet Count 442 10^3/uL (130-400); RBC 2.36 10^6/uL (4.36-5.78); RDW 13.1 % (11.8-14.1); RDW-SD 45.9 fL; WBC 9.73 10^3/uL (4.4-10.8)
[2020-06-10 07:46] LABS: Anion Gap 6.3 mmol/L (3-11); BUN 5 mg/dL (7-18); CO2 22.7 mmol/L (21.0-32.0); CREATININE 0.79 mg/dL (0.70-1.30); Calcium 7.5 mg/dL (8.5-10.1); Chloride 113 mmol/L (98-107); Glucose 92 mg/dL (74-106); Magnesium 1.6 mg/dL (1.8-2.4); Potassium 4.1 mmol/L (3.5-5.1); Sodium 142 mmol/L (136-145)
[2020-06-10 08:07] LABS: Absolute Eosinophil Count 0.78 10^3/uL (0.0-0.7); Absolute Lymphocyte Count 1.65 10^3/uL (1.2-3.4); Absolute Monocyte Count 0.58 10^3/uL (0.1-0.8); Absolute Neutrophil Count 6.62 10^3/uL (1.2-6.7); Bands % 4; Diff Comment Manual Differential; Metamyelocytes % 1; Myelocytes % 1
[2020-06-10 08:08] LABS: Hypochromasia 2+; Poikilocytes 1+
[2020-06-10] MEDS: Insulin Aspart 300 UNITS/3 ML PEN SC ×3 (08:48→20:01)
[2020-06-10] MEDS: OLANZapine 10 MG TAB 20 MG PO (08:49)
[2020-06-10] MEDS: Benztropine 1 MG TAB 4 MG PO (08:49)
[2020-06-10] MEDS: Aspirin E.C. 81 MG TABEC PO (08:50)
[2020-06-10] MEDS: Clopidogrel 75 MG TAB PO (08:50)
[2020-06-10] MEDS: OLANZapine 5 MG TAB PO (08:50)
[2020-06-10] MEDS: Magnesium Oxide 400 MG TAB PO ×2 (08:50→19:50)
[2020-06-10] MEDS: FLUoxetine 20 MG CAP PO (08:50)
[2020-06-10] MEDS: Tamsulosin 0.4 MG CAPCR PO (08:50)
[2020-06-10] MEDS: Normal Saline Flush 10 ML SYR IVP ×2 (08:51→15:35)
--- NOTE | 2020-06-10 09:10 | OT.INIE ---
Occupational Therapy Notes Inpatient Occupational Therapy Evaluation Date: 06/10/20 Referring Doctor:Darrius Vidales MD OT Orders: Non-Urgent Precautions: Fall, Standard, Full PATIENT PROFILE/ADMITTING DIAGNOSIS: Pt is a 64 year old male who was admitted to [facility] with a dx of sepsis d/t aspiration pneumonia. Past Medical History: Medical History (Updated 06/06/20 @ 14:16 by Samuel Jenkins) Dementia History of CVA with residual deficit Schizophrenia Type 2 diabetes mellitus Social History/Home Situation: Pt is unable to provide home situation verbally during session, per EMR pt is a resident of [facility] with (A) for all ADL/IADLs. Equipment owned/DME: DME needs met by [facility] facility SUBJECTIVE: Pt was lying in bed when OT arrived. He did say yes to OT evaluation. OBJECTIVE: General Observation: Lying in bed IV in (L) shoulder, bernal in place, minimal verbal communication Mental Status: A&Ox3 Pain: no c/o pain ROM: RUE shoulder flexion WFL L UE Shoulder flexion limited to 70* STRENGTH: RUE charcoal burner beehive kiln strength is strong and symmetrical LUE charcoal burner beehive kiln strength is strong and symmetrical FUNCTIONAL MOBILITY/ADLS: Transfers with steady BATHING lying in bed with max (A) set up/clean Bathing UE Max (A) Bathing LE Max (A) DRESSING lying in bed Dressing UE max (A) don and doffing hospital gown Dressing LE max (A) don and doffing (B) socks TOILETING Bernal in place EATING Max (A) BALANCE: Static sitting Good Dynamic Sitting Fair SPECIAL TESTS: Daily Activity Limitations Standardized Measure [facility] AM -PAC ?6 clicks? Daily Activity Inpatient Short Form: Raw score: 7 Standardized score: 20.13 CMS score: 92.44% INFORMED CONSENT/EDUCATION: Pt instructed in purpose of OT Consult and plan of care. ASSESSMENT: Patient is a 64-year-old male referred to occupational therapy services with diagnosis of sepsis d/t aspiration pneumonia. OT consult was performed with assessment of pts functional limitations and impairments. Pt per nursing report and functional assessment requires max (A) for all ADL/IADL routines. He is able to verbalize yes or no however all ADLs performed at todays session OT performed with pt with max (A). [facility] score 7 Patient is assessed as a high 45246 complexity based on the following: History: see above Examination: see functional limitations as noted above Presentation: evolving Decision Making: AMPAC score 7, CMS 92.44% GOALS N/A PLAN OF CARE/TREATMENT PLAN: Pt was seen for OT consult only at this time. His baseline is max (A) for all ADLs/IADLs. DISCHARGE RECOMMENDATIONS Based on pts current level of function and with being at his baseline level of function for ADLs with max (A), OT recommends that pt either return to [facility] vs. SNF. TREATMENT TIME/MINUTES/CODES [id number], 20 minutes (08:05) Brenda Torres OTR/L [facility]
[2020-06-10 09:31] VITALS: O2SAT 100
--- NOTE | 2020-06-10 09:43 | PDOC.CMPRO ---
- If Service Date Differs Date of service: 06/10/20 Time of Service: 09:43 Care Management Progress Note S/O: Michael was sitting up in a chair when CM met with him. He was unable to engage in conversation due to aphasia. This morning he had an episode of tachypnea which resolved when the head of the bed was elevated. Yesterday there was concern that Michael might need a blood transfusion, however his POA was unable to be reached. New contact information has been received for the POA, who is his daughter Lilian, and has been added into the medical record. Today Michael' H&H has stabilized and the provider no longer feels that a blood transfusion is indicated. Michael will likely transition to [facility], where he has received a bed offer, tomorrow. Contact Numbers: Jennifer Carlson- (home) [phone]; (cell) [phone]. Call [facility] number on file first. Michelle Phan, [facility], [facility]- [phone] Lilian David, Guardian, sister- [phone]; [phone] Daniella, brother- [phone] A: Michael is a 64 year old male admitted to [facility] on 06/06/20 with Sepsis, MAC, PNA. P: Anticipate Michael will return to [facility] after going to a SNF for short term rehab. He has been accepted at [facility] with possible discharge of tomorrow. A repeat Covid has been sent. Michael will transport via the facility wheelchair van and will follow up with the plan of care there. CM will continue to follow.
[2020-06-10 11:50] VITALS: O2SAT 97
--- NOTE | 2020-06-10 12:22 | PGE_ITS ---
Date of Service Date of service: 06/10/20 Time of Service: 12:24 Assessment and Plan Assessment and plan (1) Dysphagia: Status: Acute Assessment and plan: Appreciate speech evaluation. Will follow speech recommendations: pureed solids and mildly thickened liquids. (2) Schizophrenia: Status: Acute Assessment and plan: On his usual home meds. (3) Type 2 diabetes mellitus: Status: Acute Assessment and plan: Controlled Basal/bolus insulin and adjust as necessary. Qualifiers: Diabetes mellitus senior living insulin use: with senior living use Diabetes mellitus complication status: without complication Qualified Code(s): E11.9 - Type 2 diabetes mellitus without complications; Z79.4 - FDC (current) use of insulin (4) Aspiration pneumonia: Status: Acute Assessment and plan: On IV clindamycin. Plan to change to po clindamycin tomorrow with transfer to nursing facility. Qualifiers: Aspiration pneumonia type: unspecified Laterality: right Lung location: lower lobe of lung Qualified Code(s): J69.0 - Pneumonitis due to inhalation of food and vomit Subjective Subjective Patient reports: afebrile Interval history since last seen: Pt doesn't communicate any wants/needs/observations. He does answer simple questions with Yes or No. This AM was noted to be tachypneic. With elevation of the head of his bed, this resolved gradually. Exam Const General: cooperative and other (Increased resp rate with mild use of accessory muscles.) Nutritional Appearance: average body habitus Orientation: alert Resp Effort & Inspection: no audible wheezes and tachypneic Auscultation: clear to auscultation bilaterally Cardio Rate: regular rate Rhythm: regular rhythm Heart Sounds: S1 normal and S2 normal GI Palpation: soft and nontender Extrem General: no pedal edema Objective Last Vital Signs Temp 37.2 C 06/10/20 07:20 Pulse 97 H 06/10/20 07:20 Resp 30 H 06/10/20 07:20 BP 183/73 H 06/10/20 07:20 Pulse Ox 97 06/10/20 11:50 Laboratory Results - last 24 hr 06/10/20 06/10/20 06:53 06:53 WBC 9.73 RBC 2.36 L Hgb 7.5 L Hct 22.9 L MCV 97.0 H MCH 31.8 MCHC 32.8 RDW 13.1 Plt Count 442 H MPV 10.5 Immature Gran % 0.0 Neutrophils % 64.0 Band Neutrophils % 4 Lymphocytes % 17.0 Monocytes % 6.0 Eosinophils % 8.0 Basophils % 0.0 Metamyelocytes % 1 Myelocytes % 1 Nucleated RBC % 0 Absolute Neutrophils 6.62 Absolute Lymphocytes 1.65 Absolute Monocytes 0.58 Absolute Eosinophils 0.78 H Absolute Basophils 0.00 RBC Morphology See below Hypochromasia 2+ Poikilocytosis 1+ Sodium 142 Potassium 4.1 Chloride 113 H Carbon Dioxide 22.7 Anion Gap 6.3 BUN 5 L Creatinine 0.79 Estimated GFR/1.73 m2 >= 60.00 Glucose 92 Calcium 7.5 L Magnesium 1.6 L
[2020-06-10 12:26] VITALS: O2SAT 95
--- NOTE | 2020-06-10 13:58 | DI.RAD_ITS ---
EXAM: XR PORTABLE CHEST AP CLINICAL HISTORY: aspiration pneumonia TECHNIQUE: COMPARISON: CR,XR XR PORTABLE CHEST AP from 06/08/2020 FINDINGS: Portable AP film obtained at 1353 hours. Examination is compared with prior radiographs of June 08. Note is again made of a left central venous catheter in place. Patchy radiodensities again no mook in the right lower lung field, slightly more prominent than on prior examination. No other signi ficant change. IMPRESSION: Probable slight interval worsening of presumed right basilar pneumonia since examination of June 08. RADIATION DOSE DELIVERED: Total DLP Total DLP
--- NOTE | 2020-06-10 14:16 | PTTR_ITS ---
Date of service: 06/10/20 Time of Service: 09:30 PT Notes Visit Reasons: SEPSIS, MAC, PNEUMONIA Inpatient Physical Therapy Treatment Note [facility] Date: 06/10/2020 PRECAUTIONS: Fall SUBJECTIVE: Bradley is limited in verbal communication, but indicates that he is agreeable to participating in PT. He also indicates that he is feeling hot and SOB. OBJECTIVE: Patient is much more alert and awake today versus yesterday. PAIN: No c/o pain BED MOBILITY/TRANSFERS Supine-sit: Min A with HOB at 40 degrees Sit-supine: Mod A x2 with HOB flat Sit-stand: CGA Stand-sit: CGA Bed-Chair: Min A Chair-bed: Min A GAIT: Assistive Device: FWW Weight Bearing: Full Assist: Min A + CGA Distance: 10 steps in a.m.; 12' in p.m. Deviation: Cues for FWW mechanics, unable to grasp FWW with L hand, increased anxiety requiring cues for deep and slow breathing (only in a.m.) THEREX: Patient was instructed in an UE and LE strengthening program, in a long- sitting and supine positions, as per flow sheet. Patient requires PROM assist for L UE exercises. He also requires tactile cueing for proper exercise performance and completion. ASSESSMENT: Patient demonstrates a significant progression in mobility, utilizing FWW support today versus STEDY for gait and transfers. He was able to tolerate a gait distance of 12' with FWW support and Min A + CGA for cueing for FWW mechanics and assist with grasping FWW with L hand. PLAN: Continue with global strengthening as well as bed mobility and transfer training, as well as gait training with FWW support. TREATMENT CODE/TIME: Session 1: 25 minutes; 14096 x2 Session 2: 30 minutes; [id number], [id number]
--- NOTE | 2020-06-10 14:53 | SPP_ITS ---
Date of Service June 10, 2020 Subjective This covering PAPER RECLAIMING MACHINE OPERATOR consulted with evaluating PAPER RECLAIMING MACHINE OPERATOR and nursing this morning. Per nu rsing, when following strict swallow protocol, pt managed breakfast, including pureed solids and mildly-thick liquids without overt s/s of aspiration. Nursing also states that pt was able to manage pills 1 at a time with thickened liquids. PAPER RECLAIMING MACHINE OPERATOR educated nursing regarding recommendation to crush pills and administer in puree when possible to reduce risks of aspiration. PAPER RECLAIMING MACHINE OPERATOR typed swallow recommendations/protocol and provided to attending nurse, to be posted in pt's room and reviewed by nurses and TECHNICAL MGR's for every shift. Coding
--- NOTE | 2020-06-10 14:53 | AMB.SPSTP ---
Date of Service June 10, 2020 Subjective This covering SALES ASSOCIATE consulted with evaluating SALES ASSOCIATE and nursing this morning. Per nursing, when following strict swallow protocol, pt managed breakfast, including pureed solids and mildly-thick liquids without overt s/s of aspiration. Nursing also states that pt was able to manage pills 1 at a time with thickened liquids. SALES ASSOCIATE educated nursing regarding recommendation to crush pills and administer in puree when possible to reduce risks of aspiration. SALES ASSOCIATE typed swallow recommendations/protocol and provided to attending nurse, to be posted in pt's room and reviewed by nurses and BANKING MANAGER's for every shift. Coding
[2020-06-10] MEDS: POTASSIUM CHLORIDE/D5-0.45NACL 1,000 ML 75 MEQ IV (15:35)
--- NOTE | 2020-06-10 15:48 | W.NUTCONSULT ---
Date of service: 06/10/20 Time of Service: 15:48 Nutritional Consult ASSESSMENT:
[2020-06-10 16:19] VITALS: BP 115/67; PULSE 75; RESP 18; TEMP 36.8; O2SAT 99
[2020-06-10] MEDS: Bacitracin 1 PACKET TP (17:06)
[2020-06-10] MEDS: Acetaminophen 325 MG TAB 650 MG PO (17:42)
[2020-06-10] MEDS: Apixaban 5 MG TAB 10 MG PO (19:49)
[2020-06-10] MEDS: Clindamycin 300 MG CAP 600 MG PO (19:49)
[2020-06-10] MEDS: Insulin Glargine 300 UNITS/3 ML PEN SC (21:15)
[2020-06-10] MEDS: Mirtazapine 15 MG TAB PO (21:15)
[2020-06-10] MEDS: Atorvastatin 40 MG TAB PO (21:15)
[2020-06-10 22:42] LABS: COVID-19 RT-PCR UVMMC Result Negative (Negative)
[2020-06-10 23:25] VITALS: BP 101/53; PULSE 69; RESP 17; TEMP 36.6; O2SAT 96
[2020-06-11] MEDS: Insulin Aspart 300 UNITS/3 ML PEN SC (01:42)
[2020-06-11 07:35] VITALS: BP 140/95; PULSE 79; RESP 18; TEMP 36.6; O2SAT 96
[2020-06-11 07:50] VITALS: O2SAT 96
[2020-06-11] MEDS: Clindamycin 300 MG CAP 600 MG PO (08:01)
[2020-06-11] MEDS: OLANZapine 10 MG TAB 20 MG PO (08:01)
[2020-06-11] MEDS: Magnesium Oxide 400 MG TAB PO (08:02)
[2020-06-11] MEDS: Benztropine 1 MG TAB 4 MG PO (08:02)
[2020-06-11] MEDS: Apixaban 5 MG TAB 10 MG PO (08:02)
[2020-06-11] MEDS: Tamsulosin 0.4 MG CAPCR PO (08:02)
[2020-06-11] MEDS: Aspirin E.C. 81 MG TABEC PO (08:02)
[2020-06-11] MEDS: FLUoxetine 20 MG CAP PO (08:03)
[2020-06-11] MEDS: OLANZapine 5 MG TAB PO (08:03)
--- NOTE | 2020-06-11 08:36 | NS.NUTBLAN_ITS ---
Date of service: 06/11/20 Time of Service: 08:37 Nutritional Consult ASSESSMENT: Michael's diet has been advanced to minced and moist with mildly thick liquids per SECRETARIAL TEACHER recommendations. PMH: aspiration PNA, dysphagia, poorly controlled Dm2, CVA, Schizophrenia with history of poor intake prior and during current hospital admission. BMI wnl. At high nutritional risk in view extended period of time with inadequate po intake (> 7 days). Estimated needs: 1675 - 2010 kca,67-80 g protein, 2000 ml fluid NUTRITIONAL DIAGNOSIS: Moderate malnutrition in view of inadequate nutritional intake for > 7 days INTERVENTION: Minced and Moist meals, mildly thick liquids arcadio. milk BID, ensure QD calorie count 06/11-06/14 MONITORING AND EVALUATION: nutrient intake, weight, labs Time Spent in Nutritional Counseling and Treatment: 5 min
--- NOTE | 2020-06-11 10:11 | W.PM.DS.N ---
Date of service: 06/11/20 Time of Service: 10:13 DS: Diagnosis Discharge Diagnosis (1) Dysphagia: Status: Acute (2) Schizophrenia: Status: Acute (3) Type 2 diabetes mellitus: Status: Acute (4) Aspiration pneumonia: Status: Acute Discharge Plan Disposition Patient Disposition: SNF (LEVEL 1) [facility] Condition: Poor Discharge Details Reason For Visit: SEPSIS, MAC, PNEUMONIA Admit Date/Time: 06/06/20 10:26 Admit Provider: Samuel Jenkins Attending Provider: Samuel Jenkins Primary Care Provider: Beth Del Castillo Hospital Course Hospital Course: History is limited due to the patient being aphasic due to a recent stroke. He is a 64-year-old gentleman who resides in a intermediate in [facility] called [place]. His other medical history includes schizophrenia and type 2 diabetes mellitus for which she is on Metformin as well as hyperlipidemia and BPH. His caregivers called EMS because of acute mental status change in which she was poorly responsive. He reportedly had been taken poor oral intake over last few days and was passing dark-colored urine. Patient is nonverbal and has left-sided hemiparesis secondary to stroke. EMS noted him to be hypotensive and gave him a fluid bolus and he was noted to be 87% oxygen saturation on room air and was placed on nasal cannula for transport. Upon arrival he was tachycardic at a heart rate of 108 bpm and hypotensive with a blood pressure 100/48. Patient received a total of 2 L of IV fluid bolus and he remained tachycardic with low blood pressure reading. Labs show an elevated blood lactate level and he was started on Levophed for treatment of sepsis. Chest x-ray showed fluffy right opacity At the right lung base consistent with pneumonia. Concern was raised for aspiration. Patient was started on ceftriaxone in the emergency department 1 g and after my discussion with Dr. Ricardo Bellamy I recommend addition of clindamycin for coverage of aspiration. Clindamycin was chosen because of his penicillin allergy. Labs were consistent with an acute kidney injury with an elevated BUN of 89 creatinine 3.74 probably prerenal due to combination of dehydration and sepsis. Most recent BUN and creatinine were 24 and 1.26 as of May 25, 2020. Troponin I levels were less than 0.05x2 sets. Blood lactate on admission was elevated three-point 4 repeat level upon admission to the intensive care unit was 2.7. He has had a total of 3 L of IV fluids and norepinephrine drip had to be increased to 15 mcg/kg/min. Central venous lineplaced by surgery. Arterial line also placed. Patient became more alert and responsive although fairly nonverbal. At time of admission he would answer yes and no but not use any complete sentences. . He was also able to gesture his wishes and pointed to TV indicating he wanted the TV turned on. The admitting hospitalist had a brief but very direct and simple discussion with him about CODE STATUS including intubation in the event of respiratory failure or CPR or defibrillation in the event of cardiac arrest. At this time he indicates he wants full resuscitation in the event of cardiopulmonary arrest. Treatment for aspiration pneumonia continued, as well as pressure support with norepinephrine. With further fluid support as well he gradually improved and the norepinephrine was discontinued. He was transferred out of the ICU. Rocephin stopped, clindamycin continued and changed to po form the day prior to discharge. He did develop a DVT in the LUE where he had a central line. The central line was stopped and Eliquis initiated; 10mg po BID for 7 days, then 5 mg BID with a planned 3 month course. His Plavix was discontinued. ASA continued. Oral magnesium initiated and continued at time of d/c secondary to hypomagnesemia. He will complete a course of clindamycin. He will d/c to SNF for further care and therapies. He previously resided in a homecare setting. His progress at the SNF will dictate whether or not it is appropriate for him to return to that level of a living arrangement. Home Meds and New Rx's Prescriptions: New acetaminophen [Tylenol] 325 mg Tablet 650 mg PO Q4H PRN PRNQty: 0 RF: 0 clindamycin HCl 300 mg Capsule 600 mg PO TID Qty: 0 RF: 0 magnesium oxide 400 mg (241.3 mg magnesium) Tablet 400 mg PO DAILY Qty: 0 RF: 0 Eliquis 5 mg Tablet 10 mg PO BID Qty: 0 RF: 0 Eliquis 5 mg Tablet 5 mg PO BID Qty: 0 RF: 0 Continued atorvastatin 40 mg tablet 40 mg PO .QHS RF: 0 olanzapine 5 mg tablet 5 mg PO .QAM RF: 0 tamsulosin 0.4 mg capsule 0.4 mg PO DAILY RF: 0 benztropine 2 mg tablet 4 mg PO DAILY RF: 0 aspirin 81 mg Tablet 81 mg PO DAILY RF: 0 lisinopril 5 mg tablet 5 mg PO DAILY RF: 0 mirtazapine 15 mg tablet 15 mg PO .QHS RF: 0 fluoxetine 20 mg capsule 20 mg PO DAILY RF: 0 olanzapine 20 mg tablet 20 mg PO DAILY RF: 0 Lantus Solostar U-100 Insulin 100 unit/mL (3 mL) insulin pen 10 unit SUBCUT .QHS RF: 0 Discontinued clopidogrel 75 mg tablet 75 mg PO DAILY RF: 0 metformin 750 mg tablet extended release 24 hr 750 mg PO BID RF: 0 Discharge Instructions Activity:: Activity as Tolerated Equipment/Supplies:: No Equipment Needed Diet:: As Tolerated DS: Summary Status at Discharge Functional status at discharge: uses cane/walker (Has been bedbound over the last several weeks.) Overall status at discharge: patient is progressing back to baseline Mental Status: other (baseline diminished cognition) Speech and Movement: other (Speech generally limited to yes / no. Verbalization is clear.) Mood: euthymic mood and other (baseline diminished cognition) Affect: blunted Exam Const General: cooperative and no acute distress Nutritional Appearance: average body habitus Limitations: other limitations (cognitive decline) Resp Effort & Inspection: abnormal respiratory pattern (mild accessory muscle use) Auscultation: clear to auscultation bilaterally and diminished lung sounds Cardio Rate: regular rate Rhythm: regular rhythm Heart Sounds: S1 normal and S2 normal GI Palpation: soft and nontender Auscultation: normal bowel sounds Extrem General: no pedal edema and no calf tenderness Psych Appearance: grossly normal Mental Status: other (baseline diminished cognition) Mood: euthymic mood and other (baseline diminished cognition) Affect: blunted DS: Data Vitals/I&O Vitals and I&O: Vital Signs Temperature 36.6 C 06/11/20 07:35 Temperature Source Tympanic 06/11/20 07:35 Pulse 79 06/11/20 07:35 Pulse Rhythm Regular 06/11/20 07:50 Pulse 64 06/09/20 10:00 Respiratory Rate 18 06/11/20 07:35 Respiratory Effort Non-Labored 06/11/20 07:50 Respiratory Depth Normal 06/11/20 07:50 Respiratory Pattern Normal 06/11/20 07:50 Blood Pressure 140/95 H 12/02/20 07:35 Blood Pressure Mean 69 06/09/20 09:01 Blood Pressure Position Left Lateral 06/09/20 00:45 Pulse Oximetry 96 06/11/20 07:50 Oxygen Delivery Method Room Air 06/11/20 07:50 Oxygen Flow Rate 0 06/11/20 07:50 Pain Level 0 06/11/20 07:35 Comment 06/11/20 07:35 Intake & Output 06/10/20 06/10/20 06/11/20 11:59 23:59 11:59 Intake Total 1070 / 2600 1530 / 2600 230 / 230 Output Total 775 / 2475 1700 / 2475 2300 / 2300 Balance 295 / 125 -170 / 125 -2070 / -2070 Weight 68.6 kg 67.9 kg Intake: IV 1070 / 2120 1050 / 2120 Oral 0 / 480 480 / 480 230 / 230 Output: Urine 775 / 2475 1700 / 2475 2300 / 2300 Other: Urine Color Light Delia Pale Yellow Urine Appearance Clear Clear Clear Comment RN notifed Stool Size Small Stool Characteristics Soft Formed Voiding Methods Self-Catheterization Data Completed and Pending Labs on day of discharge: Labs from last 24 hours 06/10/20 10:48 COVID-19 PCR Negative Nasopharyn COVID-19 PCR Not Applicable Ref Test Perform Site [facility] lab Preliminary micro results at discharge 06/06/20 10:30 Blood Culture - Preliminary Blood NO GROWTH 96 HOURS [facility] Medical History Dementia History of CVA with residual deficit Schizophrenia Type 2 diabetes mellitus Social History Smoking risk assessment performed?: No Alcohol Intake: never Substance use type: does not use
--- NOTE | 2020-06-11 11:45 | CMDISCH_ITS ---
- If Service Date Differs Date of service: 06/11/20 Time of Service: 11:45 LACE Index Scoring Tool - Questions: Length of Stay (in days): 4 - 6 Acuity (Admit via E.D.?): Yes Comorbidities: Cerebrovascular Disease, Diabetes w/o Complication, Dementia E.D. Visits: 2 - Answers: Total Score: 14 Risk of Readmission: High Risk Care Management Discharge Reason for Hospitalization: Sepsis, MAC, PNA Discharge Plan: Michael will transfer to [facility] today by the [facility] [place], coordinated by JON[facility]. CM relayed information to admissions at [facility] regarding Michael' DPOA. CM also called Robyn at [facility] for additional paperwork needed by [facility]. Robyn faxed paperwork, which CM sent to [facility]. He will have short term rehab prior to returning to [facility]. Patient/Family Education Needs: Review discharge instructions regarding activity levels and medications, discussion of goals of care with pt and family. Services Needed at Discharge: Longterm Facility ([facility]), Transportation ([facility])
--- NOTE | 2020-06-11 11:45 | PDOC.CMDIS ---
- If Service Date Differs Date of service: 06/11/20 Time of Service: 11:45 LACE Index Scoring Tool - Questions: Length of Stay (in days): 4 - 6 Acuity (Admit via E.D.?): Yes Comorbidities: Cerebrovascular Disease, Diabetes w/o Complication, Dementia E.D. Visits: 2 - Answers: Total Score: 14 Risk of Readmission: High Risk Care Management Discharge Reason for Hospitalization: Sepsis, MAC, PNA Discharge Plan: Michael will transfer to [facility] today by the [facility], coordinated by JONO. CM relayed information to admissions at [facility] regarding Michael' DPOA. CM also called Robyn at [facility] for additional paperwork needed by [facility]. Robyn faxed paperwork, which CM sent to [facility]. He will have short term rehab prior to returning to [facility]. Patient/Family Education Needs: Review discharge instructions regarding activity levels and medications, discussion of goals of care with pt and family. Services Needed at Discharge: Senior Living Facility ([facility]), Transportation ([facility] [employer])
--- NOTE | 2020-06-11 18:01 | INDS_ITS ---
Date of service: 06/11/20 Time of Service: 09:27 PT Notes Visit Reasons: SEPSIS, MAC, PNEUMONIA Inpatient Physical Therapy Discharge Summary Date: 06/11/20 Date of service: 06/07/2020 through 06/10/2020 This is a clinical summary of care provided on the duration of dates listed above. No charge was made in the completion of this documentation. Referring Doctor: Dr. Darrius Vidales PT Orders: PT CONSULT: limited ability to ambulate Precautions: fall, standard Patient Profile/Admitting Diagnosis: Patient admitted from ER with diagnosis of sepsis d/t aspiration pneumonia. PMHX: Dementia History of CVA with residual deficit Schizophrenia Type 2 diabetes mellitus Social History/Home Situation: Patient is a resident of [facility]. He is unable to provide any significant history due to aphasia, although review of EMR, he has a history of multiple falls. Equipment Owned/DME: Patient resides in assisted living. Unable to answer questions regarding use of assistive device. Subjective: NT. See most recent NUT AND BOLT ASSEMBLER notes. Objective: General Observation: NT. See most recent NUT AND BOLT ASSEMBLER notes. Mental Status: NT. See most recent NUT AND BOLT ASSEMBLER notes. Pain: NT. See most recent NUT AND BOLT ASSEMBLER notes. Vital Signs: NT. See most recent NUT AND BOLT ASSEMBLER notes. ROM: Right Upper Extremity: Active shoulder flexion to 120 degrees. Full elbow motion. Wrist immobilized in protective splint. Able to fully open/close digits. Left Upper Extremity: Passive shoulder flexion to 80 degrees. Passive elbow motion allows 0-100 degrees with rigidity noted. Hand rests in closed position, although able to easily open passively. Right Lower Extremity: WFL Left Lower Extremity: WFL Strength: Right Upper Extremity: Difficult to assess due to inability to consistently follow commands. Patient is able to demonstrate unrestricted active movement of the RUE. Left Upper Extremity: Able to actively flex left shoulder to approx 30 degrees. No active movement of the elbow or wrist. Right Lower Extremity: Able to demonstrate active SLR and active bridge. Able to PF and DF ankle actively. Unable to resist for MMT due to limited ability to follow command. Left Lower Extremity: Able to demonstrate active knee flexion and extension in supine through partial range. Able to perform active hip flexion. Bed Mobility/Transfers: Supine to sit minimal assist with HOB at 40 degrees Sit to supine moderate assist of 2 Sit to stand contact-guard assist Stand to sit contact-guard assist Bed to chair minimal assist Chair to bed minimal assist Gait: 12 feet using front wheeled walker with full weightbearing requiring minimal assist for walker management, gait pattern and overall safety. Unable to grasp walker with the left hand due to residual left-sided weakness. Balance: Static Sitting: Good Dynamic Sitting: Good Static Standing: Fair Dynamic Standing: Fair Assessment: Michael continues to require the assistance of 1 caregiver for all bed mobility, transfers and short distance ambulation for safety and reduced fall risk. He continues to demonstrates the following impairment level findings: 1. Chronic L hemiparesis 2. unable to consistently follow commands for safe transfers 3. decreased activity tolerance Impairments are continuing to contributing to the following functional limita tions: 1. unable to transfer without assistance 2. unable to ambulate without device and assistance Goals: Goals X1 week 1. Supine-Sit : min A MET 2. Sit-Supine : min A NOT MET 3. Sit-Stand : mod A MET 4. Stand-Sit : mod A MET 5. Bed-Chair : mod A with least restrictive device MET 6. Chair-Bed : mod A with LRD MET 7. Gait : patient able to ambulate 6' with mod A and LRD MET DISCHARGE RECOMMENDATIONS: Return to assisted living with Home Health PT TREATMENT CODE/TIME: NC. Thank you for the opportunity to participate in the care of this patient. Jacquelyn Bowie PT, DPT, CLT [facility] [place], [place]
== END 2020-06-11 12:03 | disposition skilled nursing facility (03) | DRG 871 ==
LOC: ER 11:23 → ICU 11:43 → MS 06-09 11:12
PROVIDERS: Family Medicine; Admitting Provider Internal Medicine; Emergency Provider Student in an Organized Health Care Education/Training Program; PCP Nurse Practitioner Family; Visit Provider Internal Medicine
DX: A41.9 Sepsis, unspecified organism (principal); J69.0 Pneumonitis due to inhalation of food and vomit; N17.9 Acute kidney failure, unspecified; I69.354 Hemiplegia and hemiparesis following cerebral infarction affecting left non-dominant side; E86.0 Dehydration; E11.9 Type 2 diabetes mellitus without complications; Z79.4 Long term (current) use of insulin; I69.320 Aphasia following cerebral infarction; F03.90 Unspecified dementia, unspecified severity, without behavioral disturbance, psychotic disturbance, mood disturbance, and anxiety; F20.9 Schizophrenia, unspecified; R13.10 Dysphagia, unspecified; E78.5 Hyperlipidemia, unspecified; N40.0 Benign prostatic hyperplasia without lower urinary tract symptoms
CPT/HCPCS: 36556; 36415; 36416; 36592; 71045; 76942; 80048; 80053; 80307; 82962; 84145; 87040; 87077; 93005; 96361; 96365; 96367; 97110; 97163; 97167; 97530; 99232; 99233; 99239; 99252; 99291; 99292; U0003; 70450; 81003; 81015; 82272; 83605; 83735; 84484; 85025; 93010; 93971; J0696; J1644

== ENCOUNTER 2020-06-17 21:28 | Outpatient (REF) | payer MEDICARE, MEDICAID, SELFPAY ==
[2020-06-17 19:19] LABS: Abs Immature Grans 0.05 10^3/uL (0.0-0.06); Absolute Basophil Count 0.09 10^3/uL (0.0-0.2); Absolute Eosinophil Count 0.18 10^3/uL (0.0-0.7); Absolute Lymphocyte Count 2.02 10^3/uL (1.2-3.4); Absolute Monocyte Count 0.39 10^3/uL (0.1-0.8); Absolute Neutrophil Count 4.02 10^3/uL (1.2-6.7); Basophils % 1.3; Eosinophils % 2.7; HCT 30.1 % (40.0-50.0); HGB 9.5 g/dL (13.5-17.5); Immature Grans % 0.7; Lymphocytes % 29.9; MCH 31.5 pg (27.0-33.0); MCHC 31.6 % (32.0-36.0); MCV 99.7 fL (80-95); Monocytes % 5.8; Neutrophils % 59.6; Nucleated RBC 0 %; Platelet Count 744 10^3/uL (130-400); RBC 3.02 10^6/uL (4.36-5.78); RDW 14.6 % (11.8-14.1); RDW-SD 50.8 fL; WBC 6.75 10^3/uL (4.4-10.8)
[2020-06-17 19:41] LABS: Anion Gap 7.3 mmol/L (3-11); BUN 9 mg/dL (7-18); CO2 25.7 mmol/L (21.0-32.0); CREATININE 0.87 mg/dL (0.70-1.30); Calcium 8.6 mg/dL (8.5-10.1); Chloride 109 mmol/L (98-107); Glucose 113 mg/dL (74-106); Magnesium 2.1 mg/dL (1.8-2.4); Potassium 4.6 mmol/L (3.5-5.1); Sodium 142 mmol/L (136-145)
== END 2020-06-17 21:48 ==
LOC: LBN 21:28
PROVIDERS: Family Medicine; PCP Nurse Practitioner Family
DX: R79.89 Other specified abnormal findings of blood chemistry (principal); E11.9 Type 2 diabetes mellitus without complications; A41.9 Sepsis, unspecified organism
CPT/HCPCS: 80048; 83735; 85025

== ENCOUNTER 2020-08-20 16:01 | Inpatient (IN) | payer MEDICARE, MEDICAID, SELFPAY ==
[2020-08-20] VITALS (62 sets, daily range): BP systolic 100–176; BP diastolic 41–73; PULSE 103–143; RESP 16–33; TEMP 36.9–38.1; O2SAT 82–100
--- NOTE | 2020-08-20 16:15 | DI.CT_ITS ---
EXAM: CT ABDOMEN PELVIS WO CLINICAL HISTORY: gross hematuria, febrile. TECHNIQUE: Imaging Protocol: Axial computed tomography images with coronal and sagittal reformatted images were created and reviewed. Oral: / no COMPARISON: No exams were available for comparison FINDINGS: The exam is limited by patient motion. ABDOMEN: Lung Bases: Dependent changes. Question of right lower lobe infiltrate versus atelectasis. Mildly e nlarged heart. Coronary artery calcifications. Liver: Normal density. No measurable mass. Gallbladder and biliary tract: No radiodense calculus or dilation. Pancreas: Normal density, no abnormal calcifications or inflammatory process. Spleen: Normal. Kidneys: Normal size, contour and axis. No radiodense stones or obstructive uropathy. No masses seen. Renal vascular calcifications are seen. Small cyst left kidney. Adrenal glands: No masses seen. Lymph nodes: Within normal limits. Abdominal Aorta: Abdominal portion non-dilated. Heavily calcified. PELVIS: Bladder: Jamison catheter within the bladder. Bladder not well evaluated. Bowel: Large quantity of stool, solid-appearing, throughout the colon. There is colonic distention. T he rectum is quite distended to over 8 cm. There is no wall thickening or pneumatosis. The small sarbjit l is not abnormally distended. Peritoneal cavity: No ascites, collection or mesenteric inflammatory response. Reproductive organs: Within normal limits. Bones: Degenerative changes in the spine. IMPRESSION: Large quantity of stool throughout the colon, particularly in the rectum, consistent with fecal impac tion. Question of right lower lobe pneumonia versus atelectasis.. RADIATION DOSE DELIVERED: 891.98mGy.cm Total DLP DATA REPOSITORY: All CT scans at this facility are submitted to the National Radiology Data Registry (NRDR) Dose Index Registry (DIR) with the [employer] (ACR). RADIATION OPTIMIZATION: All CT scans at this facility use at least one of these dose optimization te chniques: automated exposure control; mA and/or kV adjustment per patient size (includes targeted exa ms where dose is matched to clinical indication); or iterative reconstruction.
--- NOTE | 2020-08-20 16:15 | RT.EKG_ITS ---
APPROVED REPORT Exam: Resting ECG Patient Location: E HR:120 bpm ECG Measurements Heart Rate 120 AXIS AZ 168 P 70 QRSd 76 QRS -18 QT 317 T 84 QTc 448 Conclusion Sinus tachycardia...rate> 99 Anterior infarct, old...Q >40mS, abnormal ST-T, V2-V5 I have reviewed and interpreted ECG and agree with software generated interpretation.
--- NOTE | 2020-08-20 16:40 | ED.GENADUL_ITS ---
Discharge Plan Discharge Details Chief Complaint: GenMedical Primary Care Provider: Beth Del Castillo ED Provider: Brittny Pardaa Home Meds and New Rx's Prescriptions: No Action metformin 500 mg tablet 500 mg PO BID RF: 0 atorvastatin 40 mg tablet 40 mg PO .QHS RF: 0 olanzapine 5 mg tablet 5 mg PO .QAM RF: 0 tamsulosin 0.4 mg capsule 0.4 mg PO DAILY RF: 0 benztropine 2 mg tablet 4 mg PO DAILY RF: 0 aspirin 81 mg Tablet 81 mg PO DAILY RF: 0 mirtazapine 15 mg tablet 15 mg PO .QHS RF: 0 fluoxetine 20 mg capsule 20 mg PO DAILY RF: 0 olanzapine 20 mg tablet 20 mg PO DAILY RF: 0 Lantus Solostar U-100 Insulin 100 unit/mL (3 mL) insulin pen 10 unit SUBCUT .QHS RF: 0 acetaminophen [Tylenol] 325 mg Tablet 650 mg PO Q4H PRN PRNQty: 0 RF: 0 magnesium oxide 400 mg (241.3 mg magnesium) Tablet 400 mg PO DAILY Qty: 0 RF: 0 Eliquis 5 mg Tablet 5 mg PO BID Qty: 0 RF: 0 Medical Decision Making Patient is alert and reportedly at baseline after discussion with [facility] and patient's daughter, Lilian should she need Patient is comfort measures only and she requests that we administer antipyretics, fluids, antibiotics but perform no invasive resuscitation such as CPR or intubation Patient has findings consistent with sepsis, I suspect the source of infection is urinary in nature I specifically called and discussed with LilianSHANE and she is agreeable to intravenous pressor should the patient need them Patient maintains DNR/DNI status COVID-19 negative and on discharge with positive UTI with purulent material, I suspect that she has a fever is related to these findings Covid swab negative Patient's blood pressure was noted to decrease to 100/48 with a MAP of 53, however after changing the cuff to a short arm and giving 750 bolus to complete sepsis bolus, patient is now normotensive 139/60 Patient agreeable to admission at this time Chest x-ray compared to prior and has a resolving basilar infiltrate Clinically low suspicion for COVID-19 in the absence of upper respiratory symptoms an obvious urinary tract infection 800 cc of urine draining from Bernal catheter CT abdomen pelvis does not show evidence of obstructive uropathy per virtual radiology interpretation, pending radiology review Differential Diagnosis Differential Diagnosis: Urosepsis, pneumonia, COVID-19, ureterolithiasis HPI This 65-year-old male with a history of MAC, CVA, dysphagia, schizophrenia, type 2 diabetes, aspiration pneumonia presents with gross hematuria and fever. Apparently his catheter was replaced on Tuesday and today had blood around the side of the urethra. She replaced Bernal catheter and he was sent to the emergency room. Patient is unable to give me any information secondary to aphasia from prior CVA reportedly. He is at baseline mentation per mcc and patient's DPOA, Lilian David who I discussed care with. There is not been vomiting. The event occurred approximately 2 hours prior to arrival. Patient is unable to give me any additional history. General Date/Time Provider Initiated Documentation: 08/20/20 16:05 . Related Data Home Medications Medication Instructions Recorded Confirmed Lantus Solostar U-100 Insulin 10 unit SUBCUT .QHS 05/25/20 06/06/20 aspirin 81 mg PO DAILY 05/25/20 08/20/20 atorvastatin 40 mg PO .QHS 05/25/20 08/20/20 benztropine 4 mg PO DAILY 05/25/20 08/20/20 fluoxetine 20 mg PO DAILY 05/25/20 08/20/20 mirtazapine 15 mg PO .QHS 05/25/20 08/20/20 olanzapine 5 mg PO .QAM 05/25/20 08/20/20 olanzapine 20 mg PO DAILY 05/25/20 08/20/20 tamsulosin 0.4 mg PO DAILY 05/25/20 08/20/20 acetaminophen [Tylenol] 650 mg PO Q4H PRN PRN #0 tab 06/11/20 08/20/20 apixaban [Eliquis] 5 mg PO BID #0 tab 06/11/20 08/20/20 magnesium oxide 400 mg PO DAILY #0 tab 06/11/20 08/20/20 metformin 500 mg PO BID 08/20/20 08/20/20 Previous Rx's Medication Instructions Recorded acetaminophen [Tylenol] 650 mg PO Q4H PRN PRN #0 tab 06/11/20 apixaban [Eliquis] 5 mg PO BID #0 tab 06/11/20 magnesium oxide 400 mg PO DAILY #0 tab 06/11/20 Allergies Allergy/AdvReac Type Severity Reaction Status Date / Time Penicillins Allergy Verified 08/20/20 16:14 General Stated Complaint: GenMedical LAILA: 3 Review of Systems Unobtainable due to mental status [facility] Medical History (Updated 06/26/20 @ 18:32 by Yasmin Funez MD) Apathy Dementia Bernal catheter in place History of CVA with residual deficit [facility] resident likely permanent placement at [facility] Palliative care patient Schizophrenia Sedentary lifestyle Sepsis Type 2 diabetes mellitus Social History (Updated 06/26/20 @ 18:17 by Yasmin Funez MD) Smoking risk assessment performed?: No Alcohol Intake: never Substance use type: does not use Caregiver/Support person: No Household members: none Housing: [facility] Number of Children: 0 Communication Needs: Hard of Hearing and Cannot Read Education Level: high school Do you need help understanding health information?: Always current occupation: disabled due to his schizophrenia Pets and animals: No Current gender identity: male What is your relationship status?: How often do you talk on the phone with friends or family?: never How often do you get together with friends or relatives?: never Panel score (0-1 are the most socially isolated patients): 0 What type of physical activity do you participate in: sedentary lifestyle Special hector needs: No Seatbelt use: always Water heater temp set <120 deg: Yes Working smoke detector in home: Yes Fire extinguisher in home: Yes Do you feel safe at home: Yes Do you feel safe in your relationship?: Yes Additional Social history: Michael is minimally verbal. He only answers yes or no but his answers are not consistent with his desires. He does not initiate conversation. He has a bernal in place. He has an obese abdomen. He will sit in his chair all day, per staff. He only gets up to go to the commode. He has no motivation to do anything. Cooperative but indifferent. Unable to communicate his desires. Could not have a conversation with him about his goals of care. He lived at [facility], a [facility] for people with psychiatric [facility], for several years before being admitted to [facility]. This appears to be a long-term admission. His needs are too great to return to [facility]. Exam Const General: disheveled, frail appearing and ill appearing Orientation: alert HENMT Head: normal to inspection Mouth: oral mucosae normal Throat: uvula midline Neck Other: No meningismus Chest Chest: normal inspection of the chest Resp Effort & Inspection: normal respiratory effort Auscultation: lung sounds not diminished Cardio Rate: tachycardic Rhythm: regular rhythm GI Other: Distended bladder, no tenderness, no visible signs of trauma no focalized CVA tenderness, no ecchymosis Other: Blood noted surrounding urethra, no visible signs of trauma Skin General skin exam: no rashes or lesions noted Neuro General: patient alert Extrem General: normal to inspection Course Vital Signs Vital signs: Vital Signs Temperature 38.1 C H 08/20/20 16:10 Pulse 120 H 08/20/20 16:10 Blood Pressure 156/73 H 08/20/20 16:10 Pulse Oximetry 94 08/20/20 16:10 Temperature 38.1 C H 08/20/20 16:10 Temperature Source Temporal Artery Scan 08/20/20 16:10 Pulse 120 H 08/20/20 16:10 Blood Pressure 156/73 H 08/20/20 16:10 Pulse Oximetry 94 08/20/20 16:10 Oxygen Delivery Method Room Air 08/20/20 16:10 Oxygen Flow Rate 0 08/20/20 16:10 Lab/Test Results Lab/Test Results: 08/20/20 16:26 Blood Blood Culture - Pending 08/20/20 16:26 Blood Blood Culture - Pending Critical Care Time Critical Care Time Critical Care Time: Yes Total Critical Care Time: 35 Attestation: 35 minutes of critical care time was performed Patient was placed on telemetry monitoring, [address] imaging and chest x-ray were obtained, IV antibiotics were initiated, sepsis fluid bolus was initiated Patient will be admitted by Dr. Castaneda, admitting hospitalist
[2020-08-20 16:56] LABS: Source Nasopharynx
[2020-08-20 17:12] LABS: Abs Immature Grans 0.06 10^3/uL (0.0-0.06); Absolute Basophil Count 0.07 10^3/uL (0.0-0.2); Absolute Eosinophil Count 0.28 10^3/uL (0.0-0.7); Absolute Monocyte Count 0.26 10^3/uL (0.1-0.8); Absolute Neutrophil Count 8.69 10^3/uL (1.2-6.7); Basophils % 0.6; Eosinophils % 2.5; HCT 36.5 % (40.0-50.0); HGB 11.6 g/dL (13.5-17.5); Immature Grans % 0.5; Lymphocytes % 16.4; MCH 29.7 pg (27.0-33.0); MCHC 31.8 % (32.0-36.0); MCV 93.4 fL (80-95); MPV 10.4 fL (8.0-11.0); Monocytes % 2.3; Neutrophils % 77.7; Nucleated RBC 0 %; Platelet Count 342 10^3/uL (130-400); RBC 3.91 10^6/uL (4.36-5.78); RDW-SD 47.8 fL; WBC 11.19 10^3/uL (4.4-10.8)
[2020-08-20 17:13] LABS: Absolute Lymphocyte Count 1.84 10^3/uL (1.2-3.4)
[2020-08-20] MEDS: Normal Saline 1,000 ML 1000 ML IV (17:15)
[2020-08-20 17:17] LABS: Lactate 3.8 mmol/L (0.6-1.4)
[2020-08-20 17:19] LABS: Bilirubin Negative (Negative); Blood Large (Negative); Clarity Cloudy (Clear); Glucose 100 mg/dL (Negative); Ketones Negative (Negative); Leukocyte Esterase Small (Negative); Nitrite Negative (Negative); Urobilinogen 0.2 EU/dL (Up TO 0.2)
[2020-08-20 17:23] LABS: Prothrombin Time 10.4 sec (9.3-11.0)
[2020-08-20 17:26] LABS: ALT 17 U/L (16-63); AST 11 U/L (15-37); Alkaline Phosphatase 90 U/L (46-116); Anion Gap 10.7 mmol/L (3-11); BUN 12 mg/dL (7-18); Bilirubin, Total 0.3 mg/dL (0.2-1.0); CO2 27.3 mmol/L (21.0-32.0); CREATININE 0.9 mg/dL (0.70-1.30); Chloride 103 mmol/L (98-107); Glucose 143 mg/dL (74-106); Potassium 4.3 mmol/L (3.5-5.1); Sodium 141 mmol/L (136-145); Total Protein 7.5 g/dL (6.4-8.2)
[2020-08-20 17:28] LABS: Bacteria Packed HPF (Negative); Crystals Negative HPF (Negative); Epithelial Cells Negative HPF (Negative); RBC >50 HPF (0-2); WBC 20-50 HPF (0-5)
[2020-08-20 17:29] LABS: C & S Indicated? Yes; Mucus Negative (Negative)
[2020-08-20] MEDS: ACETAMINOPHEN 1,000 MG/100 ML BTL 400 MG (17:30)
[2020-08-20] MEDS: Lidocaine 2% Jelly 11 ML SYR UR (17:30)
[2020-08-20 18:19] LABS: COVID-19 PCR Negative (Negative); Influenza A PCR Negative (Negative); Influenza B PCR Negative (Negative); RSV PCR Negative (Negative)
[2020-08-20] MEDS: cefTRIAXone 2 GM/50 ML BAG IVPB (18:25)
--- NOTE | 2020-08-20 19:04 | DI.RAD_ITS ---
EXAM: XR PORTABLE CHEST AP CLINICAL HISTORY: fever TECHNIQUE: 2D digital imaging was performed. COMPARISON: CR XR CHEST 1V IN DI DEPT from 06/06/2020 CR XR CHEST 1V IN DI DEPT from 06/06/2020 CR,XR XR PORTABLE CHEST AP from 06/08/2020 CR XR PORTABLE CHEST AP from 06/10/2020 CR XR PORTABLE CHEST AP from 06/10/[address] ABDOMEN PELVIS WO from 08/20/2020 FINDINGS: LUNGS: The previously noted small right pleural effusion has resolved. There are minimally increased densities at the right lung base. There is questionable of mild densities at the left lung base. U pper lobes appear clear. There is no evidence of pulmonary edema or pneumothorax. Leads overlie the chest. HEART: Normal size MEDIASTINUM: Normal. BONES: Unremarkable. IMPRESSION: Improvement in right lower lobe infiltrate and right pleural effusion with some residual opacities. DATA REPOSITORY: RADIATION DOSE DELIVERED:
--- NOTE | 2020-08-20 19:07 | DI.VRAD_ITS ---
PROCEDURE INFORMATION: Exam: CT Abdomen And Pelvis Without Contrast Exam date and time: 08/20/2020 6:46 PM Age: 65 years old Clinical indication: Other: Gross hematuria, febrile TECHNIQUE: Imaging protocol: Computed tomography of the abdomen and pelvis without contrast. COMPARISON: No relevant prior studies available. FINDINGS: Lungs: There is dependent subsegmental atelectasis within the lung bases greater on the right than the left. Liver: Normal. No mass. Gallbladder and bile ducts: Normal. No calcified stones. No ductal dilation. Pancreas: Normal. No ductal dilation. Spleen: Normal. No splenomegaly. Adrenal glands: Normal. No mass. Kidneys and ureters: There is no hydronephrosis or perinephric edema. Punctate and linear calcifications of the right and left renal pelvis are present consistent with nonobstructing nephrolithiasis versus vascular calcifications. Stomach and bowel: There is a large amount of retained stool in the colon and rectum. The rectum is dilated measuring 8 cm in transverse diameter. Appendix: No evidence of appendicitis. Intraperitoneal space: Unremarkable. No free air. No significant fluid collection. Vasculature: There is prominent calcified plaque of the abdominal aorta with no aneurysm. Lymph nodes: Unremarkable. No enlarged lymph nodes. Urinary bladder: A Jamison catheter is present within the urinary bladder. The urinary bladder is not distended. Reproductive: Unremarkable as visualized. Bones/joints: Chronic degenerative changes of the spine are present with spondylosis and degenerative disc disease seen most prominently at the L4-L5 level. L5 is a partially sacralized transitional vertebrae. Soft tissues: Unremarkable. IMPRESSION: 1. Dependent subsegmental atelectasis. 2. No evidence of ureteral obstruction or hydronephrosis. 3. Bilateral non-obstructing nephrolithiasis versus vascular calcifications. 4. Large amount of retained stool in the colon and rectum. Fecal impaction is suspected. 5. Jamison catheter within the urinary bladder. Dictated and Authenticated by: Medhat Arango MD. Ordering:ALEN Mart MD
--- NOTE | 2020-08-20 19:12 | DI.VRAD_ITS ---
PROCEDURE INFORMATION: Exam: XR Chest, 1 View Exam date and time: 08/20/2020 6:55 PM Age: 65 years old Clinical indication: Fever TECHNIQUE: Imaging protocol: XR of the chest Views: 1 view. COMPARISON: CR XR PORTABLE CHEST AP 06/10/2020 1:37 PM FINDINGS: Tubes, catheters and devices: EKG leads overlie the chest. Lungs: There is partial clearance of opacification of the right lung base with improved visualization of the right hemidiaphragm and costophrenic angle. There is a persistent patchy density in the retrocardiac portion of the left lower lobe. Pleural spaces: See Lungs finding. Heart/Mediastinum: The heart is not enlarged. Bones/joints: Unremarkable. IMPRESSION: AP portable view of the chest shows partial clearance of mild right basilar consolidation and no change in mild left basilar patchy consolidation. A follow-up PA and lateral chest x-ray is recommended when the patient is clinically stable. Dictated and Authenticated by: Medhat Arango MD. Ordering:ALEN Mart MD
[2020-08-20] MEDS: Lactated Ringers 1,000 ML 700 ML IV (19:21)
--- NOTE | 2020-08-20 19:47 | HPE_ITS ---
Date of service: 08/20/20 Time of Service: 19:48 Assessment and Plan Assessment and plan (1) UTI (urinary tract infection): Status: Acute Assessment and plan: UTI, manifesting with hematuria, fever and pyuria, and minimal leukocytosis. Though there are some persistent CXR findings, this is improved and there is nothing otherwise to suggest a pulmonary source (though patient remains at risk of aspiration). Not sure what to make of lactate, hemodynamics satisfactory at present. Will continue Rocephin as is pending cultures. I think it would be fleming to hold DOAC for the night given gross hematuria (note I do not find in the record specific indication for DOAC, but perhaps related to h/o CVA -- though no mention of AF). Remains DNR. History of Present Illness History of Present Illness Chief Complaint: hematuria Narrative: 89 male resident of senior living, h/o schizophrenia, stroke and indwelling Bernal. 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 Sent here for today for gross hematuria. In ER eval of note for temp to 38.1, gross hematuria along with pyuria (20-50 WBC/hpf), white count 11K. CXR show improvement in prior pneumonia (was treated for aspiration in 06/29) and CT abdomen shows no hydro. Given Rocephin 2 gr IV and admitted for further management. Note lactate 3.8, though patient is eutensive and HCO3 is 27. Patient unable to provide any substantive history due to strike/aphasia, though denies any pain. Review of Systems All systems reviewed & are unremarkable except as noted in HPI and below PFSH Medical History Apathy Dementia Bernal catheter in place History of CVA with residual deficit senior living resident likely permanent placement at [facility] and Palliative care patient Schizophrenia Sedentary lifestyle Sepsis Type 2 diabetes mellitus Social History Smoking risk assessment performed?: No Alcohol Intake: never Substance use type: does not use Caregiver/Support person: No Household members: none Housing: senior living Number of Children: 0 Communication Needs: Hard of Hearing and Cannot Read Education Level: high school Do you need help understanding health information?: Always current occupation: disabled due to his schizophrenia Pets and animals: No Current gender identity: male What is your relationship status?: How often do you talk on the phone with friends or family?: never How often do you get together with friends or relatives?: never Panel score (0-1 are the most socially isolated patients): 0 What type of physical activity do you participate in: sedentary lifestyle Special hector needs: No Seatbelt use: always Water heater temp set <120 deg: Yes Working smoke detector in home: Yes Fire extinguisher in home: Yes Do you feel safe at home: Yes Do you feel safe in your relationship?: Yes Additional Social history: Michael is minimally verbal. He only answers yes or no but his answers are not consistent with his desires. He does not initiate conversation. He has a bernal in place. He has an obese abdomen. He will sit in his chair all day, per staff. He only gets up to go to the commode. He has no motivation to do anything. Cooperative but indifferent. Unable to communicate his desires. Could not have a conversation with him about his goals of care. He lived at [facility], a community [facility] people with ps ychiatric [facility], for several years before being admitted to [facility] and . This appears to be a long-term admission. His needs are too great to return to [facility]. Meds Home Medications and Allergies Home Medications Medication Instructions Recorded Confirmed Type Lantus Solostar U-100 Insulin 10 unit SUBCUT .QHS 05/25/20 06/06/20 History aspirin 81 mg PO DAILY 05/25/20 08/20/20 History atorvastatin 40 mg PO .QHS 05/25/20 08/20/20 History benztropine 4 mg PO DAILY 05/25/20 08/20/20 History fluoxetine 20 mg PO DAILY 05/25/20 08/20/20 History mirtazapine 15 mg PO .QHS 05/25/20 08/20/20 History olanzapine 5 mg PO .QAM 05/25/20 08/20/20 History olanzapine 20 mg PO DAILY 05/25/20 08/20/20 History tamsulosin 0.4 mg PO DAILY 05/25/20 08/20/20 History acetaminophen [Tylenol] 650 mg PO Q4H PRN PRN #0 tab 06/11/20 08/20/20 Rx apixaban [Eliquis] 5 mg PO BID #0 tab 06/11/20 08/20/20 Rx magnesium oxide 400 mg PO DAILY #0 tab 06/11/20 08/20/20 Rx metformin 500 mg PO BID 08/20/20 08/20/20 History Allergies Allergy/AdvReac Type Severity Reaction Status Date / Time Penicillins Allergy Verified 08/20/20 16:14 Exam Narrative Exam Narrative: 139/60, 107, 37.1 (Tmax 38.1), 22, 98% RA. HEENT atraumatic; neck supple; lungs diminished, heart distant but RRR abdomen soft and NT; back declines to roll to allow exam; exytremities w/o edema; neuro able to respond fitfully to one step commands, expressive aphasia, 0/5 LUE Results Labs Result diagrams: 08/20/20 17:01 08/20/20 17:01 Labs: Laboratory Results - last 24 hr 08/20/20 08/20/20 08/20/20 16:49 17:01 17:01 WBC RBC Hgb Hct MCV MCH MCHC RDW Plt Count MPV Immature Gran % Neutrophils % Lymphocytes % Monocytes % Eosinophils % Basophils % Nucleated RBC % Absolute Neutrophils Absolute Lymphocytes Absolute Monocytes Absolute Eosinophils Absolute Basophils PT INR VBG Lactate 3.8 H* Sodium 141 Potassium 4.3 Chloride 103 Carbon Dioxide 27.3 Anion Gap 10.7 BUN 12 Creatinine 0.9 Estimated GFR/1.73 m2 >= 60.00 Glucose 143 H Calcium 9.0 Total Bilirubin 0.3 AST 11 L ALT 17 Alkaline Phosphatase 90 Total Protein 7.5 Albumin 3.0 L Urine Color Urine Clarity Urine pH Ur Specific [place] Urine Protein Urine Ketones Urine Blood Urine Nitrite Urine Bilirubin Urine Urobilinogen Ur Leukocyte Esterase Urine RBC Urine WBC Ur Epithelial Cells Urine Crystals Urine Bacteria Urine Mucus Ur Culture Indicated? Urine Glucose COVID-19 Source Nasopharynx SARS-CoV-2 (PCR) Negative Influenza Type A (PCR) Negative Influenza Type B (PCR) Negative RSV (PCR) Negative 08/20/20 08/20/20 08/20/20 17:01 17:01 17:09 WBC 11.19 H RBC 3.91 L Hgb 11.6 L Hct 36.5 L MCV 93.4 MCH 29.7 MCHC 31.8 L RDW 14.0 Plt Count 342 MPV 10.4 Immature Gran % 0.5 Neutrophils % 77.7 Lymphocytes % 16.4 Monocytes % 2.3 Eosinophils % 2.5 Basophils % 0.6 Nucleated RBC % 0 Absolute Neutrophils 8.69 H Absolute Lymphocytes 1.84 Absolute Monocytes 0.26 Absolute Eosinophils 0.28 Absolute Basophils 0.07 PT 10.4 INR 1.0 VBG Lactate Sodium Potassium Chloride Carbon Dioxide Anion Gap BUN Creatinine Estimated GFR/1.73 m2 Glucose Calcium Total Bilirubin AST ALT Alkaline Phosphatase Total Protein Albumin Urine Color Yellow Urine Clarity Cloudy Urine pH 6.0 Ur Specific [place] 1.020 Urine Protein Trace H Urine Ketones Negative Urine Blood Large H Urine Nitrite Negative Urine Bilirubin Negative Urine Urobilinogen 0.2 Ur Leukocyte Esterase Small H Urine RBC >50 H Urine WBC 20-50 H Ur Epithelial Cells Negative Urine Crystals Negative Urine Bacteria Packed Urine Mucus Negative Ur Culture Indicated? Yes Urine Glucose 100 COVID-19 Source SARS-CoV-2 (PCR) Influenza Type A (PCR) Influenza Type B (PCR) RSV (PCR) Last Vital Signs Temp 37.1 C 08/20/20 19:29 Pulse 106 H 08/20/20 19:31 Resp 22 08/20/20 19:40 BP 139/60 08/20/20 19:31 Pulse Ox 98 08/20/20 19:40 COVID-19 Screening Have you, or household traveled for leisure in last 14 days?: No Had IN PERSON contact w/suspected or confirmed C-19 person: No
[2020-08-20] MEDS: Lactated Ringers 1,000 ML 125 ML IV (22:24)
[2020-08-20] MEDS: Mirtazapine 15 MG TAB PO (22:32)
[2020-08-20] MEDS: Insulin Glargine 300 UNITS/3 ML PEN 10 UNITS SC (22:52)
[2020-08-21] MEDS: Lactated Ringers 1,000 ML 125 ML IV ×2 (05:55→15:28)
[2020-08-21 07:06] LABS: Lactate 0.8 mmol/L (0.6-1.4)
[2020-08-21 07:13] LABS: HCT 29.7 % (40.0-50.0); HGB 9.6 g/dL (13.5-17.5); MCH 29.3 pg (27.0-33.0); MCHC 32.3 % (32.0-36.0); MCV 90.5 fL (80-95); MPV 10.7 fL (8.0-11.0); Platelet Count 261 10^3/uL (130-400); RBC 3.28 10^6/uL (4.36-5.78); RDW 14.1 % (11.8-14.1); RDW-SD 47.5 fL; WBC 8.49 10^3/uL (4.4-10.8)
[2020-08-21 07:36] VITALS: BP 142/67; PULSE 95; RESP 19; TEMP 37.4; O2SAT 95
[2020-08-21] MEDS: Tamsulosin 0.4 MG CAPCR PO (09:09)
[2020-08-21] MEDS: Benztropine 1 MG TAB 4 MG PO (09:09)
[2020-08-21] MEDS: OLANZapine 5 MG TAB PO (09:09)
[2020-08-21] MEDS: OLANZapine 10 MG TAB 20 MG PO (09:09)
[2020-08-21] MEDS: FLUoxetine 20 MG CAP PO (09:09)
[2020-08-21] MEDS: metFORMIN 500 MG TAB PO (09:09)
[2020-08-21] MEDS: Magnesium Oxide 400 MG TAB PO (09:09)
--- NOTE | 2020-08-21 10:38 | PDOC.CMIN ---
- If Service Date Differs Date of service: 08/21/20 Time of Service: 10:38 Care Management Initial Assess REASON FOR HOSPITALIZATION:: UTI PAST MEDICAL HISTORY/PAST SURGICAL HISTORY:: Medical History . Apathy. Dementia. Jamison catheter in place. History of CVA with residual deficit. halfway resident. likely permanent placement at [facility] and . Palliative care patient. Schizophrenia. Sedentary lifestyle. Sepsis. Type 2 diabetes mellitus PREVIOUS FUNCTIONAL STATUS/SOCIAL/FAMILY SUPPORTS:: Michael lives at [facility] in [place], [place]. He is mostly non verbal, although he can answer yes/no questions, and uses gestures to have his needs met. He is dependent on his caregivers that assist with his ADL's at baseline. CURRENT FUNCTIONAL STATUS:: CM unable to meet with Michael as he was isolated as a PUI. ADVANCE DIRECTIVES:: None on file Has patient been provided with info about the portal/API?: No Did the patient sign up for the portal?: No CODE STATUS:: DNR/DNI INSURANCE COVERAGE / FINANCIAL ISSUES:: Medicare. Medicaid CURRENT HOME/COMMUNITY SERVICES/EQUIPMENT:: resides at [facility] PRIMARY CARE PHYSICIAN:: Beth Del Castillo POTENTIAL DISCHARGE NEEDS:: Follow up with PCP and plan of care PATIENT/FAMILY EDUCATION NEEDS:: discharge plan, limitations, follow up plan, [employer] TRANSPORTATION:: via w/c van from [facility] PLAN:: Michael will likely discharge back to [facility] with a resumption of services. He will follow up with their provider and plan of care and transport via w/c van. CM will continue to support Michael and his discharge needs.
[2020-08-21 11:50] VITALS: BP 137/74; PULSE 97; RESP 20; TEMP 37.4; O2SAT 98
[2020-08-21] MEDS: Pantoprazole 40 MG VIAL IVP (11:51)
[2020-08-21] MEDS: Normal Saline Flush 10 ML SYR IVP ×3 (11:51→20:04)
[2020-08-21] MEDS: metroNIDAZOLE 500 MG/100 ML BAG 100 MG IVPB ×2 (11:51→18:20)
[2020-08-21 15:11] VITALS: BP 127/69; PULSE 78; RESP 16; TEMP 36.9; O2SAT 98
--- NOTE | 2020-08-21 16:12 | SPP_ITS ---
Date of service: 08/21/20 Time of Service: 16:30 Subjective 08/21/20 MATHEMATICS FACULTY MEMBER Non-Treatment Note MATHEMATICS FACULTY MEMBER Order received, chart reviewed. Pt had been assessed by MATHEMATICS FACULTY MEMBER previously at [facility] 06/2020 during previous admission. Discussed recommendations with Dr Arzola and RN. Written recommendations provided to nursing staff, in pt chart, and to be hung in patient?s room for review by [facility] staff. Note: Pt unable to be fully assessed by MATHEMATICS FACULTY MEMBER today given reduced GLADIS; communicated inability to wake pt despite sternal rub, increased vocal volume to RN, also provided general AAC board with pictures for enhanced communication to RN and communicated this to PT as well; unclear if AAC approach is even appropriate for pt given inability of pt to engage at this time. Pt reportedly had been tolerating IDDSI Level 0-thin liquids without overt s.s aspiration per RN earlier this afternoon, with decent intake of solids as well. Recommend following for PO intake given recent hx of UTI/dehydration, interview with nursing: Risk management: Oral hygiene QID, 4x/day (use toothbrush for tongue, toothette as needed to address oral residue), before/after all PO intake. HOB/chair upright for all po intake, upright for 30 minutes after po intake; Encourage physical mobility as tolerated. Diet texture recommendations: IDDSI Level 4-Pureed Solids Level 0 thin liquids via cup sip *Pills in puree as appropriate, via teaspoon/1 at a time Full supervised assist for p.o. intake: - slow rate - prior to offering next bite: allow patient time to respond if he has swallowed, ask Y/N question to confirm if coughing during p.o. intake, encourage patient to continue strong cough and allow for RR recovery Monitor for overt s.s aspiration with all PO (ie, cough, throat clear, wet vocal quality) Please ensure patient has access to communication board to express wants/needs beyond Y/N questions Referral communicated to covering MATHEMATICS FACULTY MEMBER for following day per availability. Etelvina García MA [facility]-MATHEMATICS FACULTY MEMBER [phone]
--- NOTE | 2020-08-21 16:21 | PGE_ITS ---
Date of Service Date of service: 08/21/20 Time of Service: 16:35 Assessment and Plan Assessment and plan (1) Sepsis: Status: Acute Assessment and plan: Due to UTI and aspiration pneumonia, present on admission. Fully vaccinated against COVID-19. Continue empiric ceftriaxone - I added flagyl to better cover for aspiration pneumonia. Await blood and urine cultures. Modified diet. Bernal catheter changes. (2) UTI (urinary tract infection): Status: Acute Assessment and plan: Present on admission, associated with indwelling bernal catheter. Continue empiric ceftriaxone. Bernal changed on admission. Does have non-obstructing kidney stones - depending on culture results, may have to be addressed. (3) Aspiration pneumonia: Status: Acute Assessment and plan: Abx as above. Modified diet. Qualifiers: Aspiration pneumonia type: unspecified Laterality: right Lung location: lower lobe of lung Qualified Code(s): J69.0 - Pneumonitis due to inhalation of food and vomit (4) Dysphagia: Status: Chronic Assessment and plan: Evaluated by speech therapy. Modified diet ordered. (5) Penile bleeding: Status: Acute Assessment and plan: Consider urology consult. (6) Dementia: Status: Chronic Assessment and plan: Behaviors stable. Consult palliative care. (7) DVT prophylaxis: Status: Acute Assessment and plan: Chemical DVT ppx on hold due to penile bleeding (8) Discharge planning issues: Status: Acute Subjective Subjective Interval history since last seen: Only says yes and no. Does not communicate otherwise. Very warm to touch per nursing, though no actual fever. T max 37.4. Diminished lung sounds. Good PO intake. UOP very good. Bleeding outside the catheter. No actual hematuria. Not on chemical DVT ppx for this reason. Pulses hard to feel - will doppler. Very hard BM. Needs a bowel regimen. Chronic L-sided neglect. Seen by speech - modified diet. Somnolent now. >100,00 CFU GNR in urine. blood cultures pending. BGs low. Exam Narrative Exam Narrative: The patient was not seen in person due to his PUI status (for COVID-19) and medical stability per nursing report. Objective Last Vital Signs Temp 36.9 C 08/21/20 15:11 Pulse 78 08/21/20 15:11 Resp 16 08/21/20 15:11 BP 127/69 08/21/20 15:11 Pulse Ox 98 02/11/21 15:11 Laboratory Results - last 24 hr 08/20/20 08/20/20 08/20/20 16:49 17:01 17:01 WBC RBC Hgb Hct MCV MCH MCHC RDW Plt Count MPV Immature Gran % Neutrophils % Lymphocytes % Monocytes % Eosinophils % Basophils % Nucleated RBC % Absolute Neutrophils Absolute Lymphocytes Absolute Monocytes Absolute Eosinophils Absolute Basophils PT INR VBG Lactate 3.8 H* Sodium 141 Potassium 4.3 Chloride 103 Carbon Dioxide 27.3 Anion Gap 10.7 BUN 12 Creatinine 0.9 Estimated GFR/1.73 m2 >= 60.00 Glucose 143 H Calcium 9.0 Total Bilirubin 0.3 AST 11 L ALT 17 Alkaline Phosphatase 90 Total Protein 7.5 Albumin 3.0 L Urine Color Urine Clarity Urine pH Ur Specific [place] Urine Protein Urine Ketones Urine Blood Urine Nitrite Urine Bilirubin Urine Urobilinogen Ur Leukocyte Esterase Urine RBC Urine WBC Ur Epithelial Cells Urine Crystals Urine Bacteria Urine Mucus Ur Culture Indicated? Urine Glucose COVID-19 Source Nasopharynx SARS-CoV-2 (PCR) Negative Influenza Type A (PCR) Negative Influenza Type B (PCR) Negative RSV (PCR) Negative 08/20/20 08/20/20 08/20/20 17:01 17:01 17:09 WBC 11.19 H RBC 3.91 L Hgb 11.6 L Hct 36.5 L MCV 93.4 MCH 29.7 MCHC 31.8 L RDW 14.0 Plt Count 342 MPV 10.4 Immature Gran % 0.5 Neutrophils % 77.7 Lymphocytes % 16.4 Monocytes % 2.3 Eosinophils % 2.5 Basophils % 0.6 Nucleated RBC % 0 Absolute Neutrophils 8.69 H Absolute Lymphocytes 1.84 Absolute Monocytes 0.26 Absolute Eosinophils 0.28 Absolute Basophils 0.07 PT 10.4 INR 1.0 VBG Lactate Sodium Potassium Chloride Carbon Dioxide Anion Gap BUN Creatinine Estimated GFR/1.73 m2 Glucose Calcium Total Bilirubin AST ALT Alkaline Phosphatase Total Protein Albumin Urine Color Yellow Urine Clarity Cloudy Urine pH 6.0 Ur Specific [place] 1.020 Urine Protein Trace H Urine Ketones Negative Urine Blood Large H Urine Nitrite Negative Urine Bilirubin Negative Urine Urobilinogen 0.2 Ur Leukocyte Esterase Small H Urine RBC >50 H Urine WBC 20-50 H Ur Epithelial Cells Negative Urine Crystals Negative Urine Bacteria Packed Urine Mucus Negative Ur Culture Indicated? Yes Urine Glucose 100 COVID-19 Source SARS-CoV-2 (PCR) Influenza Type A (PCR) Influenza Type B (PCR) RSV (PCR) 08/21/20 08/21/20 06:55 06:55 WBC 8.49 RBC 3.28 L Hgb 9.6 L Hct 29.7 L MCV 90.5 MCH 29.3 MCHC 32.3 RDW 14.1 Plt Count 261 MPV 10.7 Immature Gran % Neutrophils % Lymphocytes % Monocytes % Eosinophils % Basophils % Nucleated RBC % Absolute Neutrophils Absolute Lymphocytes Absolute Monocytes Absolute Eosinophils Absolute Basophils PT INR VBG Lactate 0.8 Sodium Potassium Chloride Carbon Dioxide Anion Gap BUN Creatinine Estimated GFR/1.73 m2 Glucose Calcium Total Bilirubin AST ALT Alkaline Phosphatase Total Protein Albumin Urine Color Urine Clarity Urine pH Ur Specific [place] Urine Protein Urine Ketones Urine Blood Urine Nitrite Urine Bilirubin Urine Urobilinogen Ur Leukocyte Esterase Urine RBC Urine WBC Ur Epithelial Cells Urine Crystals Urine Bacteria Urine Mucus Ur Culture Indicated? Urine Glucose COVID-19 Source SARS-CoV-2 (PCR) Influenza Type A (PCR) Influenza Type B (PCR) RSV (PCR)
[2020-08-21] MEDS: Polyethylene Glycol 3350 17 GM PACKET PO (17:30)
[2020-08-21] MEDS: cefTRIAXone 1,000 MG in Normal Saline 50 ML 100 MG IVPB (17:31)
[2020-08-21] MEDS: Bisacodyl 5 MG TABEC PO (17:31)
[2020-08-21] MEDS: Docusate Sodium 100 MG CAP PO (20:04)
[2020-08-21] MEDS: Senna TAB 1 TAB PO (20:04)
[2020-08-21] MEDS: Atorvastatin 40 MG TAB PO (22:48)
[2020-08-21] MEDS: Insulin Glargine 300 UNITS/3 ML PEN 10 UNITS SC (22:50)
[2020-08-21] MEDS: Mirtazapine 15 MG TAB PO (22:51)
[2020-08-21 23:00] VITALS: BP 148/69; PULSE 97; RESP 18; TEMP 37.2; O2SAT 96
[2020-08-22] MEDS: metroNIDAZOLE 500 MG/100 ML BAG 100 MG IVPB ×2 (01:55→09:59)
[2020-08-22] MEDS: Normal Saline 500 ML 30 ML IV (01:55)
[2020-08-22] MEDS: Normal Saline Flush 10 ML SYR IVP ×6 (02:00→22:02)
[2020-08-22 07:11] LABS: Abs Immature Grans 0.02 10^3/uL (0.0-0.06); Absolute Basophil Count 0.05 10^3/uL (0.0-0.2); Absolute Eosinophil Count 0.39 10^3/uL (0.0-0.7); Absolute Lymphocyte Count 2.07 10^3/uL (1.2-3.4); Absolute Monocyte Count 0.59 10^3/uL (0.1-0.8); Absolute Neutrophil Count 3.86 10^3/uL (1.2-6.7); Basophils % 0.7; Eosinophils % 5.6; HCT 33.6 % (40.0-50.0); HGB 10.8 g/dL (13.5-17.5); Immature Grans % 0.3; Lymphocytes % 29.7; MCH 29.4 pg (27.0-33.0); MCHC 32.1 % (32.0-36.0); MCV 91.6 fL (80-95); MPV 11.3 fL (8.0-11.0); Monocytes % 8.5; Neutrophils % 55.2; Nucleated RBC 0 %; Platelet Count 286 10^3/uL (130-400); RBC 3.67 10^6/uL (4.36-5.78); RDW 13.8 % (11.8-14.1); RDW-SD 46.8 fL; WBC 6.98 10^3/uL (4.4-10.8)
[2020-08-22 07:45] LABS: Anion Gap 7.7 mmol/L (3-11); BUN 8 mg/dL (7-18); CO2 25.3 mmol/L (21.0-32.0); CREATININE 0.7 mg/dL (0.70-1.30); Calcium 8.7 mg/dL (8.5-10.1); Chloride 108 mmol/L (98-107); Ferritin 53 ng/mL (26-388); Glucose 87 mg/dL (74-106); Magnesium 1.8 mg/dL (1.8-2.4); Potassium 3.7 mmol/L (3.5-5.1); Sodium 141 mmol/L (136-145)
[2020-08-22 07:50] LABS: Iron 18 ug/dL (65-175); Total Iron Binding Capacity 210 ug/dL (250-450); Transferrin Sat 9 % (20-55)
[2020-08-22 07:54] LABS: Folate 6.1 ng/mL (8.6-20.0); Vitamin B12 284 pg/mL (193-986)
[2020-08-22] MEDS: OLANZapine 5 MG TAB PO (08:28)
[2020-08-22] MEDS: FLUoxetine 20 MG CAP PO (08:28)
[2020-08-22] MEDS: OLANZapine 10 MG TAB 20 MG PO (08:28)
[2020-08-22] MEDS: Tamsulosin 0.4 MG CAPCR PO (08:28)
[2020-08-22] MEDS: Docusate Sodium 100 MG CAP PO ×2 (08:28→21:57)
[2020-08-22] MEDS: Magnesium Oxide 400 MG TAB PO (08:28)
[2020-08-22] MEDS: Senna TAB 1 TAB PO ×2 (08:28→21:58)
[2020-08-22] MEDS: Benztropine 1 MG TAB 4 MG PO (08:28)
[2020-08-22 08:29] VITALS: BP 149/81; PULSE 94; RESP 20; TEMP 36.9; O2SAT 99
[2020-08-22] MEDS: Ferrous Sulfate 325 MG TAB PO (09:59)
[2020-08-22] MEDS: Folic Acid 1 MG TAB PO (09:59)
--- NOTE | 2020-08-22 10:14 | PDOC.CMPRO ---
- If Service Date Differs Date of service: 08/22/20 Time of Service: 10:14 Care Management Progress Note S/O:Michael continues to improve. His vital signs are stable and he is afebrile. His oxygen saturation remains in the high 90's on room air. CM unable to meet with Michael in person as he is a PUI. Per nursing, he is somnolent today and has a bit of bleeding around his bernal catheter at the meatus. The urine culture from 08/20/20 is growing several organisms including 2 gram negative rods and some gram positive kaley. He is currently receiving Ceftriaxone and Flagyl for the UTI and possible aspiration pneumonia. A: Michael is a 65 year old man admitted on 08/20/20 with UTI P:Michael is going to be discharged back to [facility] when medically stable. He will follow up with the facility providers and plan of care and likely transport via facility w/c van. CM will continue to support patient, family and discharge concerns.
--- NOTE | 2020-08-22 11:02 | IN_ITS ---
Date of service: 08/22/20 Time of Service: 11:02 PT Notes Visit Reasons: Urinary tract infection Physical Therapy Inpatient Initial Evaluation Date: 08/22/2020 Referring Doctor: Justina Arzola MD PT Orders: PT CONSULT: Limited ability Precautions: Fall. Standard. Comfort measures. DNR/DNI. Non-verbal but can comprehend, answers yes/no to questions. Patient Profile/Admitting Diagnosis: Michael is a 65-year-old male on comfort measures who presented to the ED from [facility] on 08/20/2020 for gross hematuria, fever, pyuria and leukocytosis with diagnosis of urinary tract infection, sepsis, aspiration pneumonia, dysphagia, and penile bleeding. PMHX: Medical History Apathy Dementia Jamison catheter in place History of CVA with residual deficit senior care resident likely permanent placement at [facility] Palliative [facility] patient Schizophrenia Sedentary lifestyle Sepsis Type 2 diabetes mellitus Social History/Home Situation: Is a resident of [facility] and receives needed assistance from nursing staff. Equipment Owned/DME: Wheelchair Subjective: Agreeable to PT consult and exercise session. No non-verbal nor physical expression of pain throughout session. Objective: General Observation: Supine in bed with pillow under the left flaccid UE. Mental Status: Alert able to understand instructions, responds with yes or no to questions. Pain: None expressed throughout session ROM: Right Upper Extremity: Shoulder Flexion WFL. Shoulder abduction WFL. Elbow flexion WFL. Wrist flexion WFL. Opening and closing of hand WFL. Left Upper Extremity: (ALL PASSIVE ROM) Shoulder Flexion WFL. Shoulder abduction WFL. Elbow flexion WFL. Wrist flexion WFL. Opening and closing of hand absent with begining flexion contracture in fingers felt.. Right Lower Extremity: Hip flexion allows up to 80 degrees. Hip abduction WFL. Knee flexion 20 degrees to 90 degrees. Knee extension -20 degrees. Ankle dorsiflexion 5 degrees beyond neutral. Ankle plantarflexion WFL. Left Lower Extremity: Hip flexion allows up to 80 degrees. Hip abduction WFL. Knee flexion 30 degrees to 90 degrees. Knee extension -20 degrees. Ankle dorsiflexion 5 degrees beyond neutral. Ankle plantarflexion WFL. Strength: Right Upper Extremity: Shoulder flexors 4/5. Shoulder abductors 4/5. Elbow flexors 4/5. Elbow extensors 4/5. Plush Dresser strong. Left Upper Extremity: Shoulder flexors 0/5. Shoulder abductors 0/5. Elbow flexors 0/5. Elbow extensors 0/5. Plush Dresser absent. Right Lower Extremity: Hip flexors 3-/5. Hip abductors 4/5. Knee flexors 3-/5. Knee extensors 3-/5. Ankle dorsiflexors 3-/5. Ankle plantarflexors 4-/5. Left Lower Extremity: Hip flexors 3-/5. Hip abductors 4/5. Knee flexors 3-/5. Knee extensors 3-/5. Ankle dorsiflexors 3-/5. Ankle plantarflexors 4-/5. Sensation: Intact as to pain and pressure on bilateral lower extremities and R UE, absent in L UE. Bed Mobility/Transfers: Rolling moderate assist of 2 Supine to sit moderate assist of 2 Sit to supine moderate assist of 2 Sit to stand will will seek assistance of nursing staff to assess mobility level for safety Stand to sit will will seek assistance of nursing staff to assess mobility level for safety Bed to chair will will seek assistance of nursing staff to assess mobility level for safety Chair to bed will will seek assistance of nursing staff to assess mobility level for safety Gait: Will will seek assistance of nursing staff to assess mobility level for safety Special Tests: Mobility Limitations Standardized Measure [facility]-PAC 6 clicks Basic Mobility Inpatient Short Form: Raw Score: 0 CMS Score: 100% deficit Informed Consent/Education: Patient instructed in purpose of PT consult and plan of care. Assessment: Michael is on comfort measures and requires total assistance with all transfer and ambulation task performance for safety. AROM to the right upper extremity and bilateral lower extremities as well as PROM to the left upper extremity were done with patient for this session. . Patient presents with clinical signs and symptoms consistent with current/admitting diagnoses that have resulted to mobility limitations, gait instability, generalized weakness, and impairment of motor control as demonstrated by the following impairment level findings: 1. Decreased strength to left UE and B LE major muscle groups Impairments are contributing to the following functional limitations: 1. Dependent bed mobility skills 2. Increased dependence with transfers 3. Inability to safely ambulate without assistive device and physical assistance 4. Increase completion time for mobility ADL performance 5. Increased fall risk 6. Inability to negotiate steps alone safely Patient is assessed as a [id number] moderate complexity based on the following: History: 65-year-old male with impairment level findings, functional limitations, and past medical history as indicated above Examination: Demonstrable impairment in strength, balance, and mobility level with underlying impairments and functional limitations as documented above Presentation: Evolving Decision Makin moderate complexity Goals: Goals X1 week 1. Michael will maintain active range of motion in right upper extremity and bilateral lower extremities with active range of motion exercises provided by PT staff. 2. Michael will maintain passive range of motion in left upper extremity with passive range of motion exercises provided by PT staff. 3. Nursing staff will demonstrate 100% mastery with active and passive range of motion activities for patient after 3 training sessions. Plan of Care/Treatment Plan: 1-2x/day, 7 days/week x 1 week. Plan of care has been reviewed with the RN HYPERBARIC providing the service under Physical Therapy direction. Initiate Physical Therapy intervention for AROM and PROM. PT to train nursing staff on 08/25/2020 prior to discharge. DISCHARGE RECOMMENDATIONS: Return to SNF when medically cleared by hospitalist. No equipment needs at this time. TREATMENT CODE/TIME: 14434 x 20 minutes, 01472 x 12 minutes beginning at 11:02 AM. Thank you for the opportunity to participate in the care of this patient. Jacquelyn Bowie PT, DPT, CLT [facility] [place], [place]
[2020-08-22] MEDS: Pantoprazole 40 MG VIAL IVP (12:14)
[2020-08-22] MEDS: Cyanocobalamin 100 MCG TABLET PO (12:14)
--- NOTE | 2020-08-22 13:29 | UCONE_ITS ---
Date of service: 08/22/20 Time of Service: 11:29 Assessment and Plan Assessment and plan (1) Urethral bleeding: Status: Acute Assessment and plan: The bleeding seems related to the site of mild urethral meatal erosion. The erosion is fairly common in men with chronic indwelling catheters. I see no contraindication to anticoagulation in this patient. If he were to develop blood in the urine with clots and clot retention, I might think otherwise. If he requires termite control servicer anticoagulation and has significant urethral bleeding, we can consider converting him to a suprapubic tube to reduce the trauma to the urethral meatus. History of Present Illness History of Present Illness Chief Complaint: Urethral bleeding Narrative: This is a 65-year-old gentleman who is currently hospitalized with concerns for sepsis. The 2 most likely sources of his sepsis are either aspirat ion pneumonia or urinary tract. He has a chronic indwelling catheter that was changed 2 days prior to this admission. The patient has dementia and a history of schizophrenia. He is not able to prov ravindra much history for me. I obtained most of the history from his medical records. I am not sure exactly how long he has been managed with an indwelling catheter. I am not sure if the catheter was placed for retention or for incontinence. I do not see a chronic urethral catheter mentioned on his previous discharge summary from 2019. I have been asked to see this gentleman for concerns regarding urethral bleeding around his catheter. He does have a history of DVT and has been given anticoagu lants while he is hospitalized. I have specifically been asked if I think it is safe to restart the anticoagulants. Review of Systems Unobtainable due to mental status [facility] Medical History (Updated 08/22/20 @ 13:29 by Landry Graham MD) Apathy Dementia Bernal catheter in place History of CVA with residual deficit correction resident likely permanent placement at [facility] and Palliative care patient Schizophrenia Sedentary lifestyle Sepsis Type 2 diabetes mellitus Social History Smoking/Tobacco Use Status: Unknown Smoking risk assessment performed?: Yes Alcohol Intake: never Substance use type: does not use Caregiver/Support person: No Household members: none Housing: residential Number of Children: 0 Communication Needs: Hard of Hearing and Cannot Read Education Level: high school Do you need help understanding health information?: Always current occupation: disabled due to his schizophrenia Pets and animals: No Current gender identity: male What is your relationship status?: How often do you talk on the phone with friends or family?: never How often do you get together with friends or relatives?: never Panel score (0-1 are the most socially isolated patients): 0 What type of physical activity do you participate in: sedentary lifestyle Special hector needs: No Seatbelt use: always Water heater temp set <120 deg: Yes Working smoke detector in home: Yes Fire extinguisher in home: Yes Do you feel safe at home: Yes Do you feel safe in your relationship?: Yes Additional Social history: Michael is minimally verbal. He only answers yes or no but his answers are not consistent with his desires. He does not initiate conversation. He has a bernal in place. He has an obese abdomen. He will sit in his chair all day, per staff. He only gets up to go to the commode. He has no motivation to do anything. Cooperative but indifferent. Unable to communicate his desires. Could not have a conversation with him about his goals of care. He lived at [facility], a community skilled nursing for people with psychiatric disabilities, for several years before being admitted to [facility] and . This appears to be a long-term admission. His needs are too great to return to [facility]. Exam Narrative Exam Narrative: He does not appear septic or toxic A Bernal catheter is in place and is draining clear urine There is some ventral erosion of the urethral meatus consistent with chronic urethral catheter. There is some granulation tissue at the erosion site. Results Last Vital Signs Temp 36.9 C 08/22/20 08:29 Pulse 94 H 08/22/20 08:29 Resp 20 08/22/20 08:29 BP 149/81 H 08/22/20 08:29 Pulse Ox 99 08/22/20 08:29 Labs Result diagrams: 08/22/20 06:30 08/22/20 06:30 Labs: Laboratory Results - last 24 hr 08/22/20 08/22/20 08/22/20 06:30 06:30 06:30 WBC 6.98 RBC 3.67 L Hgb 10.8 L Hct 33.6 L MCV 91.6 MCH 29.4 MCHC 32.1 RDW 13.8 Plt Count 286 MPV 11.3 H Immature Gran % 0.3 Neutrophils % 55.2 Lymphocytes % 29.7 Monocytes % 8.5 Eosinophils % 5.6 Basophils % 0.7 Nucleated RBC % 0 Absolute Neutrophils 3.86 Absolute Lymphocytes 2.07 Absolute Monocytes 0.59 Absolute Eosinophils 0.39 Absolute Basophils 0.05 Sodium 141 Potassium 3.7 Chloride 108 H Carbon Dioxide 25.3 Anion Gap 7.7 BUN 8 Creatinine 0.7 Estimated GFR/1.73 m2 >= 60.00 Glucose 87 D Calcium 8.7 Magnesium 1.8 Iron 18 L TIBC 210 L Transferrin % Sat 9 L Ferritin 53 Vitamin B12 Folate 08/22/20 06:30 WBC RBC Hgb Hct MCV MCH MCHC RDW Plt Count MPV Immature Gran % Neutrophils % Lymphocytes % Monocytes % Eosinophils % Basophils % Nucleated RBC % Absolute Neutrophils Absolute Lymphocytes Absolute Monocytes Absolute Eosinophils Absolute Basophils Sodium Potassium Chloride Carbon Dioxide Anion Gap BUN Creatinine Estimated GFR/1.73 m2 Glucose Calcium Magnesium Iron TIBC Transferrin % Sat Ferritin Vitamin B12 284 Folate 6.1 L
[2020-08-22 14:30] VITALS: BP 157/80; PULSE 84; RESP 17; TEMP 36.8; O2SAT 98
--- NOTE | 2020-08-22 15:24 | DM INPTCON_ITS ---
Date of service: 08/22/20 Time of Service: 15:24 Diabetes Inpatient Consult DESCRIPTION/ASSESSMENT: 65 year old male, resident of long term admitted with aspiration PNA, UTI with hx of DM2 and dysphagia with compromised verbal ability. Following CHO puree diet with thin liquids with adequate intake. Meds include metformin 500 mg BID, lantus 10 u at HS. No new A1C available, blood sugars adequately controlled while hospitalized. BMI on low end of normal but stable > 1 year. Currently meeting nutrient and fluid needs, blood sugars well controlled. INTERVENTION: Diabetic inpatient education not appropriate at this time as will return to long term apon discharge PLAN: continue current meal plan, will monitor po intake, labs and weight. Time Spent in Nutritional Counseling and Treatment: 0
--- NOTE | 2020-08-22 16:02 | CMPROGNOTE_ITS ---
Care Management Progress Note At provider request, CM called [facility] admissions to inquire to [facility] status of patient preference to not be transferred to hospital. Deanne of [facility] agreed to follow up with the guardian to determine if her wishes were for Michael to remain at [facility] or return to [facility] at this time. CM will support coordination of Michael's return to [facility] per Guardian preference.
--- NOTE | 2020-08-22 16:02 | PDOC.CMPRO ---
Care Management Progress Note At provider request, CM called [facility] admissions to inquire to [facility] status of patient preference to not be transferred to hospital. Deanne of [facility] agreed to follow up with the guardian to determine if her wishes were for Michael to remain at [facility] or return to [facility] at this time. CM will support coordination of Michael's return to [facility] per Guardian preference.
--- NOTE | 2020-08-22 16:39 | DSE_ITS ---
Date of service: 08/22/20 Time of Service: 16:39 DS: Diagnosis Discharge Diagnosis (1) Sepsis: Start date: 08/22/20 Start time: 16:46 Status: Acute Asessment and Plan: Assessment and plan: Due to UTI and aspiration pneumonia, present on admission. Fully vaccinated against COVID-19. Continue empiric ceftriaxone - I added flagyl to better cover for aspiration pneumonia. Await blood and urine cultures. Modified diet. 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 Graham he agrees to resuming eliquis (3) UTI (urinary tract infection): Start date: 08/22/20 Start time: 16:50 Status: Acute Asessment and Plan: Present on admission, associated with indwelling bernal catheter. Continue empiric ceftriaxone. Bernal changed on admission. Does have non-obstructing kidney stones - depending on culture results, may have to be addressed. (3) Aspiration pneumonia: However given present situation I will transition to PO as patient is open to antibiotics. I will do levaquin (4) Palliative care patient: Start date: 08/22/20 Start time: 16:51 Status: Acute Asessment and Plan: Being seen by Lisandra PIÑA for palliative. Per RICCARDO, being discharged in am home. as above above case discussed with Dr. Arzola Discharge Plan Disposition Patient Disposition: HOME Condition: Deteriorating Discharge Details Reason For Visit: UTI Admit Date/Time: 08/20/20 20:10 Admit Provider: Noe Castaneda Attending Provider: Noe Castaneda Primary Care Provider: Beth Del Castillo Hospital Course Hospital Course: 65 male resident of [facility], h/o schizophrenia, stroke and indwelling Bernal. Report is that Bernal changed 2 days [employer]. Sent on day of admission for gross hematuria. In ER eval of note for temp to 38.1, gross hematuria along with pyuria (20-50 WBC/hpf), white count 11K. CXR show improvement in prior pneumonia (was treated for aspiration in 06/29) and CT abdomen shows no hydro. Given Rocephin 2 gr IV and admitted for further management. Note lactate 3.8, though patient is eutensive and HCO3 is 27. Patient unable to provide any substantive history due to strike/aphasia, though denies any pain. Over course of treatment patient was being tested for COVID, test negative. Palliative consulted. COLST form revealing patient wishes for no hospitalization. 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 Therefore he is being discha rged in the am. Home Meds and New Rx's Prescriptions: New levofloxacin 750 mg tablet 750 mg PO DAILY Qty: 14 RF: 0 Continued metformin 500 mg tablet 500 mg PO BID RF: 0 atorvastatin 40 mg tablet 40 mg PO .QHS RF: 0 olanzapine 5 mg tablet 5 mg PO .QAM RF: 0 tamsulosin 0.4 mg capsule 0.4 mg PO DAILY RF: 0 benztropine 2 mg tablet 4 mg PO DAILY RF: 0 aspirin 81 mg Tablet 81 mg PO DAILY RF: 0 mirtazapine 15 mg tablet 15 mg PO .QHS RF: 0 fluoxetine 20 mg capsule 20 mg PO DAILY RF: 0 olanzapine 20 mg tablet 20 mg PO DAILY RF: 0 Lantus Solostar U-100 Insulin 100 unit/mL (3 mL) insulin pen 10 unit SUBCUT .QHS RF: 0 acetaminophen [Tylenol] 325 mg Tablet 650 mg PO Q4H PRN PRNQty: 0 RF: 0 magnesium oxide 400 mg (241.3 mg magnesium) Tablet 400 mg PO DAILY Qty: 0 RF: 0 Eliquis 5 mg Tablet 5 mg PO BID Qty: 0 RF: 0 Discharge Instructions Instructions: Urinary Tract Infection in Women (DC), Community Acquired Pneumonia (DC), Comfort Measures (GEN) Additional Instructions: Discharge home with comfort Activity:: Activity as Tolerated Equipment/Supplies:: No Equipment Needed Diet:: As Tolerated Discharge Orders Discharge Orders: Discharge Order (Routine); Ordered 08/23/20 Ordered By: Aida Orr DS: Summary Time Spent with Patient providing and/or coordinating discharge services: Greater than 30 minutes Status at Discharge Functional status at discharge: bed bound Overall status at discharge: other Mental Status: other Speech and Movement: other Mood: other Affect: normal affect Exam Narrative Exam Narrative: Patient is going home on DRY PAN OPERATOR, he answers yes or no. He has a BM. The patient was not seen in person due to his PUI status (for COVID-19) and medical stability per nursing report. Psych Mental Status: other Speech and Movement: other Mood: other Affect: normal affect DS: Data Vitals/I&O Vitals and I&O: Vital Signs Temperature 36.9 C 08/22/20 08:29 Temperature Source Temporal Artery Scan 08/22/20 08:29 Pulse 94 H 08/22/20 08:29 Pulse Rhythm Regular 08/22/20 08:30 Pulse 107 H 08/20/20 21:46 Respiratory Rate 20 08/22/20 08:29 Respiratory Effort Non-Labored 08/22/20 08:30 Respiratory Depth Normal 08/22/20 08:30 Respiratory Pattern Normal 08/22/20 08:30 Blood Pressure 149/81 H 08/22/20 08:29 Blood Pressure Mean 68 08/20/20 21:46 Pulse Oximetry 99 08/22/20 08:29 Oxygen Delivery Method Room Air 08/22/20 08:29 Oxygen Flow Rate 0 08/22/20 08:29 Pain Level 0 08/21/20 23:00 Intake & Output 08/21/20 08/22/20 08/22/20 23:59 11:59 23:59 Intake Total 2514.167 / 3923.750 860.5 / 1100.5 240 / 1100.5 Output Total 3300 / 4400 1550 / 2150 600 / 2150 Balance -785.833 / -476.250 -689.5 / -1049.5 -360 / -1049.5 Intake: IV 1514.167 / 2473.750 120.5 / 120.5 Oral 1000 / 1450 740 / 980 240 / 980 Output: Urine 3300 / 4400 1550 / 2150 600 / 2150 Other: Urine Color Pale Yellow Yellow Yellow Urine Appearance Clear Clear Clear Stool Occult Blood Negative Stool Size Moderate Large Stool Characteristics Formed Soft Hard Formed Brown Brown Data Completed and Pending Completed studies during hospitalization [Text1]: Exam(s) a RAD:XR portable chest AP EXAM: XR PORTABLE CHEST AP CLINICAL HISTORY: fever TECHNIQUE: 2D digital imaging was performed. COMPARISON: CR XR CHEST 1V IN DI DEPT from 06/06/2020 CR XR CHEST 1V IN DI DEPT from 06/06/2020 CR,XR XR PORTABLE CHEST AP from 06/08/2020 CR XR PORTABLE CHEST AP from 06/10/2020 CR XR PORTABLE CHEST AP from 06/10/[address] ABDOMEN PELVIS WO from 08/20/2020 FINDINGS: LUNGS: The previously noted small right pleural effusion has resolved. There are minimally increased densities at the right lung base. There is questionable of mild densities at the left lung base. Upper lobes appear clear. There is no evidence of pulmonary edema or pneumothorax. Leads overlie the chest. HEART: Normal size MEDIASTINUM: Normal. BONES: Unremarkable. IMPRESSION: Improvement in right lower lobe infiltrate and right pleural effusion with some residual opacities. Exam(s) PROCEDURE INFORMATION: Exam: CT Abdomen And Pelvis Without Contrast Exam date and time: 08/20/2020 6:46 PM Age: 65 years old Clinical indication: Other: Gross hematuria, febrile TECHNIQUE: Imaging protocol: Computed tomography of the abdomen and pelvis without contrast. COMPARISON: No relevant prior studies available. FINDINGS: Lungs: There is dependent subsegmental atelectasis within the lung bases greater on the right than the left. Liver: Normal. No mass. Gallbladder and bile ducts: Normal. No calcified stones. No ductal dilation. Pancreas: Normal. No ductal dilation. Spleen: Normal. No splenomegaly. Adrenal glands: Normal. No mass. Kidneys and ureters: There is no hydronephrosis or perinephric edema. Punctate and linear calcifications of the right and left renal pelvis are present consistent with nonobstructing nephrolithiasis versus vascular calcifications. Stomach and bowel: There is a large amount of retained stool in the colon and rectum. The rectum is dilated measuring 8 cm in transverse diameter. Appendix: No evidence of appendicitis. Intraperitoneal space: Unremarkable. No free air. No significant fluid collection. Vasculature: There is prominent calcified plaque of the abdominal aorta with no aneurysm. Lymph nodes: Unremarkable. No enlarged lymph nodes. Urinary bladder: A Bernal catheter is present within the urinary bladder. The urinary bladder is not distended. Reproductive: Unremarkable as visualized. Bones/joints: Chronic degenerative changes of the spine are present with spondylosis and degenerative disc disease seen most prominently at the L4-L5 level. L5 is a partially sacralized transitional vertebrae. Soft tissues: Unremarkable. IMPRESSION: 1. Dependent subsegmental atelectasis. 2. No evidence of ureteral obstruction or hydronephrosis. 3. Bilateral non-obstructing nephrolithiasis versus vascular calcifications. 4. Large amount of retained stool in the colon and rectum. Fecal impaction is suspected. 5. Bernal catheter within the urinary bladder. Dictated and Authenticated by: Medhat Arango MD. Exam(s) PROCEDURE INFORMATION: Exam: XR Chest, 1 View Exam date and time: 08/20/2020 6:55 PM Age: 65 years old Clinical indication: Fever TECHNIQUE: Imaging protocol: XR of the chest Views: 1 view. COMPARISON: CR XR PORTABLE CHEST AP 06/10/2020 1:37 PM FINDINGS: Tubes, catheters and devices: EKG leads overlie the chest. Lungs: There is partial clearance of opacification of the right lung base with improved visualization of the right hemidiaphragm and costophrenic angle. There is a persistent patchy density in the retrocardiac portion of the left lower lobe. Pleural spaces: See Lungs finding. Heart/Mediastinum: The heart is not enlarged. Bones/joints: Unremarkable. IMPRESSION: AP portable view of the chest shows partial clearance of mild right basilar consolidation and no change in mild left basilar patchy consolidation. A follow-up PA and lateral chest x-ray is recommended when the patient is clinically stable. Labs on day of discharge: Labs from last 24 hours 08/22/20 08/22/20 08/22/20 08:30 06:30 06:30 WBC RBC Hgb Hct MCV MCH MCHC RDW Plt Count MPV Immature Gran % Neutrophils % Lymphocytes % Monocytes % Eosinophils % Basophils % Nucleated RBC % Absolute Neutrophils Absolute Lymphocytes Absolute Monocytes Absolute Eosinophils Absolute Basophils Sodium Potassium Chloride Carbon Dioxide Anion Gap BUN Creatinine Estimated GFR/1.73 m2 Glucose Calcium Magnesium Iron 18 L TIBC 210 L Transferrin % Sat 9 L Ferritin Vitamin B12 284 Folate 6.1 L COVID-19 Source Pending SARS-CoV-2 (PCR) Pending 08/22/20 08/22/20 06:30 06:30 WBC 6.98 RBC 3.67 L Hgb 10.8 L Hct 33.6 L MCV 91.6 MCH 29.4 MCHC 32.1 RDW 13.8 Plt Count 286 MPV 11.3 H Immature Gran % 0.3 Neutrophils % 55.2 Lymphocytes % 29.7 Monocytes % 8.5 Eosinophils % 5.6 Basophils % 0.7 Nucleated RBC % 0 Absolute Neutrophils 3.86 Absolute Lymphocytes 2.07 Absolute Monocytes 0.59 Absolute Eosinophils 0.39 Absolute Basophils 0.05 Sodium 141 Potassium 3.7 Chloride 108 H Carbon Dioxide 25.3 Anion Gap 7.7 BUN 8 Creatinine 0.7 Estimated GFR/1.73 m2 >= 60.00 Glucose 87 D Calcium 8.7 Magnesium 1.8 Iron TIBC Transferrin % Sat Ferritin 53 Vitamin B12 Folate COVID-19 Source SARS-CoV-2 (PCR) Preliminary micro results at discharge 08/20/20 17:09 Urine Culture - Preliminary Urine - Reflex from Ua Gram Negative Joey Gram Negative Joey#2 Gram Positive Hyacinth,Mixed 08/20/20 18:10 Blood Culture - Preliminary Blood NO GROWTH 24 HOURS 08/20/20 17:01 Blood Culture - Preliminary Blood NO GROWTH 24 HOURS [facility] Medical History Apathy Dementia Bernal catheter in place History of CVA with residual deficit [facility] resident likely permanent placement at [facility] Palliative [facility] patient Schizophrenia Sedentary lifestyle Sepsis Type 2 diabetes mellitus Social History Smoking/Tobacco Use Status: Unknown Smoking risk assessment performed?: Yes Alcohol Intake: never Substance use type: does not use Caregiver/Support person: No Household members: none Housing: [facility] Number of Children: 0 Communication Needs: Hard of Hearing and Cannot Read Education Level: high school Do you need help understanding health information?: Always current occupation: disabled due to his schizophrenia Pets and animals: No Current gender identity: male What is your relationship status?: How often do you talk on the phone with friends or family?: never How often do you get together with friends or relatives?: never Panel score (0-1 are the most socially isolated patients): 0 What type of physical activity do you participate in: sedentary lifestyle Special hector needs: No Seatbelt use: always Water heater temp set <120 deg: Yes Working smoke detector in home: Yes Fire extinguisher in home: Yes Do you feel safe at home: Yes Do you feel safe in your relationship?: Yes Additional Social history: Michael is minimally verbal. He only answers yes or no but his answers are not consistent with his desires. He does not initiate conversation. He has a bernal in place. He has an obese abdomen. He will sit in his chair all day, per staff. He only gets up to go to the commode. He has no motivation to do anything. Cooperative but indifferent. Unable to communicate his desires. Could not have a conversation with him about his goals of care. He lived at [place], a [facility], for several years before being admitted to [facility]. This appears to be a long-term admission. His needs are too great to return to [facility].
[2020-08-22] MEDS: cefTRIAXone 1,000 MG in Normal Saline 50 ML 100 MG IVPB (16:56)
--- NOTE | 2020-08-22 18:40 | PT.INDS ---
Date of service: 08/29/20 PT Notes Visit Reasons: Urinary tract infection Physical Therapy Inpatient Discharge Summary Date: 08/22/2020 Date of service: 08/22/2020 only This is a clinical summary of care provided on the duration of dates listed above. No charge was made in the completion of this documentation. Referring Doctor: Justina Arzola MD PT Orders: PT CONSULT: Limited ability Precautions: Fall. Standard. Comfort measures. DNR/DNI. Non-verbal but can comprehend, answers yes/no to questions. Patient Profile/Admitting Diagnosis: Michael is a 65-year-old male on comfort measures who presented to the ED from [facility] on 08/20/2020 for gross hematuria, fever, pyuria and leukocytosis with diagnosis of urinary tract infection, sepsis, aspiration pneumonia, dysphagia, and penile bleeding. PMHX: Medical History Apathy Dementia Jamison catheter in place History of CVA with residual deficit long-term resident likely permanent placement at [facility] patient Schizophrenia Sedentary lifestyle Sepsis Type 2 diabetes mellitus Social History/Home Situation: Is a resident of [facility] and receives needed assistance from nursing staff. Equipment Owned/DME: Wheelchair Subjective: NT. See most recent [employer] notes. Objective: General Observation: NT. See most recent [employer] notes. Mental Status: NT. See most recent [employer] notes. Pain: NT. See most recent [employer] notes. ROM: Right Upper Extremity: Shoulder Flexion WFL. Shoulder abduction WFL. Elbow flexion WFL. Wrist flexion WFL. Opening and closing of hand WFL. Left Upper Extremity: (ALL PASSIVE ROM) Shoulder Flexion WFL. Shoulder abduction WFL. Elbow flexion WFL. Wrist flexion WFL. Opening and closing of hand absent with begining flexion contracture in fingers felt.. Right Lower Extremity: Hip flexion allows up to 80 degrees. Hip abduction WFL. Knee flexion 20 degrees to 90 degrees. Knee extension -20 degrees. Ankle dorsiflexion 5 degrees beyond neutral. Ankle plantarflexion WFL. Left Lower Extremity: Hip flexion allows up to 80 degrees. Hip abduction WFL. Knee flexion 30 degrees to 90 degrees. Knee extension -20 degrees. Ankle dorsiflexion 5 degrees beyond neutral. Ankle plantarflexion WFL. Strength: Right Upper Extremity: Shoulder flexors 4/5. Shoulder abductors 4/5. Elbow flexors 4/5. Elbow extensors 4/5. Plum Packer strong. Left Upper Extremity: Shoulder flexors 0/5. Shoulder abductors 0/5. Elbow flexors 0/5. Elbow extensors 0/5. Plum Packer absent. Right Lower Extremity: Hip flexors 3-/5. Hip abductors 4/5. Knee flexors 3-/5. Knee extensors 3-/5. Ankle dorsiflexors 3-/5. Ankle plantarflexors 4-/5. Left Lower Extremity: Hip flexors 3-/5. Hip abductors 4/5. Knee flexors 3-/5. Knee extensors 3-/5. Ankle dorsiflexors 3-/5. Ankle plantarflexors 4-/5. Sensation: Intact as to pain and pressure on bilateral lower extremities and R UE, absent in L UE. Bed Mobility/Transfers: Rolling moderate assist of 2 Supine to sit moderate assist of 2 Sit to supine moderate assist of 2 Sit to stand will will seek assistance of nursing staff to assess mobility level for safety Stand to sit will will seek assistance of nursing staff to assess mobility level for safety Bed to chair will will seek assistance of nursing staff to assess mobility level for safety Chair to bed will will seek assistance of nursing staff to assess mobility level for safety Gait: Will will seek assistance of nursing staff to assess mobility level for safety Assessment: Michael is on comfort measures and requires total assistance with all transfer and ambulation task performance for safety. AROM to the right upper extremity and bilateral lower extremities as well as PROM to the left upper extremity were done with patient for this session. Patient continues to present with clinical signs and symptoms consistent with current/admitting diagnoses that have resulted to mobility limitations, gait instability, generalized weakness, and impairment of motor control as demonstrated by the following impairment level findings: 1. Decreased strength to left UE and B LE major muscle groups Impairments are continuing to contributing to the following functional limitations: 1. Dependent bed mobility skills 2. Increased dependence with transfers 3. Inability to safely ambulate without assistive device and physical assistance 4. Increase completion time for mobility ADL performance 5. Increased fall risk 6. Inability to negotiate steps alone safely Goals: Goals X1 week 1. Michael will maintain active range of motion in right upper extremity and bilateral lower extremities with active range of motion exercises provided by PT staff. NOT MET 2. Michael will maintain passive range of motion in left upper extremity with passive range of motion exercises provided by PT staff. NOT MET 3. Nursing staff will demonstrate 100% mastery with active and passive range of motion activities for patient after 3 training sessions. NOT MET DISCHARGE RECOMMENDATIONS: Return to SNF when medically cleared by hospitalist. No equipment needs at this time. TREATMENT CODE/TIME: NC. Thank you for the opportunity to participate in the care of this patient. Jacquelyn Bowie PT, DPT, CLT [facility] [place], [place]
[2020-08-22] MEDS: Apixaban 5 MG TAB PO (21:57)
[2020-08-22] MEDS: Mirtazapine 15 MG TAB PO (21:58)
[2020-08-22] MEDS: Atorvastatin 40 MG TAB PO (21:58)
[2020-08-22] MEDS: Insulin Glargine 300 UNITS/3 ML PEN 10 UNITS SC (21:59)
[2020-08-22 22:27] VITALS: BP 165/77; PULSE 72; RESP 18; TEMP 37; O2SAT 98
--- NOTE | 2020-08-22 22:32 | PCNE_ITS ---
Date of service: 08/22/20 Time of Service: 18:30 History of Present Illness Narrative: Michael Brewer is a 65 year old man with a past medical history significant for dementia, CVA, schizophrenia, DM2, who is currently admitted for sepsis related to UTI with chronic indwelling bernal catheter and aspiration pneumonia. He is a resident of [facility]. A palliative co nsult was placed to discuss goals of care. Michael has difficulty communicating due to history of CVA. His case was discussed with his sister and guardian, Lilian via telephone. Lilian had previously signed a COLST form indicated that he was a DNR/DNI, do not transfer and that he preferred comfort focused care. Despite this, he was transferred to [facility] from the rehab. The ED spoke with Lilian who gave permission for him to be admitted, for IV fluids and antibiotics. At this point, Lilian would like Mr. Brewer to be transferred back to the rehab. She wants his care to be comfort focused. She is in agreement with oral antibiotics to continue to treat the current infection. She would like any nonessential medications to be discontinued. She would be interested in hospice if he qualifies. The plan at this point is for him to be discharged back to [facility] re[facility] tomorrow. 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 (10) Aspiration pneumonia: Status: Acute Qualifiers: Aspiration pneumonia type: unspecified Laterality: right Lung location: lower lobe of lung Qualified Code(s): J69.0 - Pneumonitis due to inhalation of food and vomit (11) History of CVA with residual deficit: Status: Inactive (12) DNR (do not resuscitate): Status: Acute (13) DNI (do not intubate): Status: Acute (14) POLST (Physician Orders for Life-Sustaining Treatment): Status: Acute (15) Palliative care patient: Status: Acute Assessment and plan: Michael Brewer is a 65 year old man with a past medical history significant for dementia, CVA, schizophrenia, DM2, who is currently admitted for sepsis related to UTI with chronic indwelling bernal catheter and aspiration pneumonia. He is a resident of [facility]. A palliative consult was placed to discuss goals of care. His case was discussed via telephone with his Guardian and sister, Lilian, who states that he is a DNR/DNI, do not transfer and comfort focused care. He has a completed COLST stating this which was previously completed by his guardian. She would like him to be transferred back to [facility] for comfort focused care. His guardian agrees to him taking PO antibiotics to treat the current infection. She requests that any nonessential medications be discontinued. If his condition declines, she would be interested in hospice. Follow up with palliative after discharge at the rehab facility. Review of Systems Unobtainable due to mental condition (difficulty w/ verbal communication due to CVA) [facility] Medical History Apathy Dementia Bernal catheter in place History of CVA with residual deficit retirement resident likely permanent placement at [facility] and Palliative care patient Schizophrenia Sedentary lifestyle Sepsis Type 2 diabetes mellitus Social History Smoking/Tobacco Use Status: Unknown Smoking risk assessment performed?: Yes Alcohol Intake: never Substance use type: does not use Caregiver/Support person: No Household members: none Housing: skilled nursing Number of Children: 0 Communication Needs: Hard of Hearing and Cannot Read Education Level: high school Do you need help understanding health information?: Always current occupation: disabled due to his schizophrenia Pets and animals: No Current gender identity: male What is your relationship status?: How often do you talk on the phone with friends or family?: never How often do you get together with friends or relatives?: never Panel score (0-1 are the most socially isolated patients): 0 What type of physical activity do you participate in: sedentary lifestyle Special hector needs: No Seatbelt use: always Water heater temp set <120 deg: Yes Working smoke detector in home: Yes Fire extinguisher in home: Yes Do you feel safe at home: Yes Do you feel safe in your relationship?: Yes Additional Social history: Michael is minimally verbal. He only answers yes or no but his answers are not consistent with his desires. He does not initiate conversation. He has a bernal in place. He has an obese abdomen. He will sit in his chair all day, per staff. He only gets up to go to the commode. He has no motivation to do anything. Cooperative but indifferent. Unable to communicate his desires. Could not have a conversation with him about his goals of care. He lived at [facility], a community longterm for people with psyc hiatric disabilities, for several years before being admitted to [facility]. This appears to be a long-term admission. His needs are too great to return to [facility]. Exam Narrative Exam Narrative: General: Mr. Brewer was seen from several feet away due to PUI status for COVID-19. He was asleep at the time of the visit and not awakened due to known difficulty with verbal communication and availability of guardian to discuss care. Results Last Vital Signs Temp 37 C 08/22/20 22:27 Pulse 72 08/22/20 22:27 Resp 18 08/22/20 22:27 BP 165/77 H 08/22/20 22:27 Pulse Ox 98 08/22/20 22:27 Labs Result diagrams: 08/22/20 06:30 08/22/20 06:30 Labs: Laboratory Results - last 24 hr 08/22/20 08/22/20 08/22/20 06:30 06:30 06:30 WBC 6.98 RBC 3.67 L Hgb 10.8 L Hct 33.6 L MCV 91.6 MCH 29.4 MCHC 32.1 RDW 13.8 Plt Count 286 MPV 11.3 H Immature Gran % 0.3 Neutrophils % 55.2 Lymphocytes % 29.7 Monocytes % 8.5 Eosinophils % 5.6 Basophils % 0.7 Nucleated RBC % 0 Absolute Neutrophils 3.86 Absolute Lymphocytes 2.07 Absolute Monocytes 0.59 Absolute Eosinophils 0.39 Absolute Basophils 0.05 Sodium 141 Potassium 3.7 Chloride 108 H Carbon Dioxide 25.3 Anion Gap 7.7 BUN 8 Creatinine 0.7 Estimated GFR/1.73 m2 >= 60.00 Glucose 87 D Calcium 8.7 Magnesium 1.8 Iron 18 L TIBC 210 L Transferrin % Sat 9 L Ferritin 53 Vitamin B12 Folate 08/22/20 06:30 WBC RBC Hgb Hct MCV MCH MCHC RDW Plt Count MPV Immature Gran % Neutrophils % Lymphocytes % Monocytes % Eosinophils % Basophils % Nucleated RBC % Absolute Neutrophils Absolute Lymphocytes Absolute Monocytes Absolute Eosinophils Absolute Basophils Sodium Potassium Chloride Carbon Dioxide Anion Gap BUN Creatinine Estimated GFR/1.73 m2 Glucose Calcium Magnesium Iron TIBC Transferrin % Sat Ferritin Vitamin B12 284 Folate 6.1 L
[2020-08-23 08:48] VITALS: BP 168/84; PULSE 89; RESP 20; TEMP 36.1; O2SAT 98
--- NOTE | 2020-08-23 09:04 | CMDISCH_ITS ---
LACE Index Scoring Tool - Questions: Length of Stay (in days): 3 Acuity (Admit via E.D.?): Yes Comorbidities: Cerebrovascular Disease, Diabetes w/o Complication, Dementia E.D. Visits: 3 - Answers: Total Score: 14 Risk of Readmission: High Risk Care Management Discharge Reason for Hospitalization: UTI Discharge Plan: Michael will return to [facility] on [facility] orders. His guardian reiterated his wishes to not be transferred to the hospital and to be kept comfortable at the facility. CM coordinated EMS transport through [facility]. Patient/Family Education Needs: Review of discharge considerations. Services Needed at Discharge: [facility] (Return to [facility]), [facility] ([place])
[2020-08-23] MEDS: Benztropine 1 MG TAB 4 MG PO (09:10)
[2020-08-23] MEDS: OLANZapine 10 MG TAB 20 MG PO (09:10)
[2020-08-23] MEDS: Docusate Sodium 100 MG CAP PO (09:10)
[2020-08-23] MEDS: Folic Acid 1 MG TAB PO (09:11)
[2020-08-23] MEDS: levoFLOXacin 500 MG, levoFLOXacin 250 MG 750 MG PO (09:11)
[2020-08-23] MEDS: OLANZapine 5 MG TAB PO (09:11)
[2020-08-23] MEDS: Tamsulosin 0.4 MG CAPCR PO (09:11)
[2020-08-23] MEDS: Ferrous Sulfate 325 MG TAB PO (09:11)
[2020-08-23] MEDS: FLUoxetine 20 MG CAP PO (09:11)
[2020-08-23] MEDS: Acetaminophen 325 MG TAB 650 MG PO (09:11)
[2020-08-23] MEDS: Magnesium Oxide 400 MG TAB PO (09:11)
[2020-08-23 09:12] LABS: Source Nasopharynx
[2020-08-23] MEDS: Apixaban 5 MG TAB PO (09:12)
[2020-08-23] MEDS: Cyanocobalamin 100 MCG TABLET PO (09:12)
[2020-08-23] MEDS: Senna TAB 1 TAB PO (09:12)
[2020-08-23 09:58] LABS: COVID-19 PCR Negative (Negative); Influenza A PCR Negative (Negative); Influenza B PCR Negative (Negative); RSV PCR Negative (Negative)
[2020-08-23] MEDS: Insulin Aspart 300 UNITS/3 ML PEN SC (12:00)
== END 2020-08-23 13:27 | disposition home or self-care (01) | DRG 871 ==
LOC: ER 21:10 → MS 21:53
PROVIDERS: Internal Medicine; Admitting Provider General Practice; Emergency Provider Physician Assistant; PCP Nurse Practitioner Family; Visit Provider General Practice
DX: A41.9 Sepsis, unspecified organism; J69.0 Pneumonitis due to inhalation of food and vomit; T83.511A Infection and inflammatory reaction due to indwelling urethral catheter, initial encounter; N39.0 Urinary tract infection, site not specified; Z66 Do not resuscitate; Z51.5 Encounter for palliative care; E11.9 Type 2 diabetes mellitus without complications; R31.0 Gross hematuria; I69.320 Aphasia following cerebral infarction; F03.90 Unspecified dementia, unspecified severity, without behavioral disturbance, psychotic disturbance, mood disturbance, and anxiety; F20.9 Schizophrenia, unspecified; N20.0 Calculus of kidney; R13.10 Dysphagia, unspecified; N36.8 Other specified disorders of urethra
CPT/HCPCS: 36415; 51702; 80048; 80053; 85027; 87040; 87077; 87081; 93005; 96361; 96365; 97110; 97162; 99222; 99232; 99239; 99253; 99254; 99285; 71045; 74176; 81003; 81015; 82607; 82728; 82746; 83540; 83550; 83605; 83735; 85025; 85610; 87086; 87186; 93010; J0131; J0696

== ENCOUNTER 2020-08-23 16:33 | Outpatient (REF) | payer MEDICARE, MEDICAID, SELFPAY ==
[2020-08-26 17:06] LABS: COVID-19 RT-PCR Result Not Detected ((See Note))
== END 2020-08-23 16:34 | disposition home or self-care (01) ==
LOC: LBN 16:33
PROVIDERS: PCP Nurse Practitioner Family; Visit Provider Nurse Practitioner Adult Health
DX: Z20.822 Contact with and (suspected) exposure to COVID-19 (principal)
CPT/HCPCS: U0003

== ENCOUNTER 2020-08-28 07:11 | Outpatient (REF) | payer MEDICARE, MEDICAID, SELFPAY ==
[2020-08-28 07:41] LABS: Bilirubin Negative (Negative); Blood Negative (Negative); Clarity Clear (Clear); Glucose Negative (Negative); Ketones Negative (Negative); Leukocyte Esterase Negative (Negative); Nitrite Negative (Negative); Urobilinogen 0.2 EU/dL (Up TO 0.2)
[2020-08-28 15:32] LABS: Abs Immature Grans 0.06 10^3/uL (0.0-0.06); Absolute Basophil Count 0.08 10^3/uL (0.0-0.2); Absolute Eosinophil Count 0.18 10^3/uL (0.0-0.7); Absolute Monocyte Count 0.62 10^3/uL (0.1-0.8); Absolute Neutrophil Count 7.39 10^3/uL (1.2-6.7); Basophils % 0.8; Eosinophils % 1.8; HCT 35.7 % (40.0-50.0); HGB 11.5 g/dL (13.5-17.5); Immature Grans % 0.6; Lymphocytes % 17.8; MCH 29.1 pg (27.0-33.0); MCHC 32.2 % (32.0-36.0); MCV 90.4 fL (80-95); MPV 10.8 fL (8.0-11.0); Monocytes % 6.1; Neutrophils % 72.9; Nucleated RBC 0 %; Platelet Count 438 10^3/uL (130-400); RBC 3.95 10^6/uL (4.36-5.78); RDW 13.9 % (11.8-14.1); RDW-SD 45.9 fL; WBC 10.13 10^3/uL (4.4-10.8)
[2020-08-28 15:54] LABS: Anion Gap 11.8 mmol/L (3-11); BUN 17 mg/dL (7-18); CO2 25.2 mmol/L (21.0-32.0); CREATININE 1.2 mg/dL (0.70-1.30); Calcium 9.6 mg/dL (8.5-10.1); Chloride 104 mmol/L (98-107); Glucose 187 mg/dL (74-106); Potassium 4.2 mmol/L (3.5-5.1); Sodium 141 mmol/L (136-145)
== END 2020-08-28 07:12 | disposition home or self-care (01) ==
LOC: LBN 07:11
PROVIDERS: Nurse Practitioner Adult Health; PCP Nurse Practitioner Family; Visit Provider Family Medicine
DX: E11.9 Type 2 diabetes mellitus without complications (principal); R31.0 Gross hematuria; N39.0 Urinary tract infection, site not specified
CPT/HCPCS: 80048; 81003; 85025; 87086

== ENCOUNTER 2020-08-31 17:55 | Outpatient (REF) | payer MEDICARE, MEDICAID, SELFPAY ==
[2020-08-31 17:08] LABS: Abs Immature Grans 0.09 10^3/uL (0.0-0.06); Absolute Basophil Count 0.12 10^3/uL (0.0-0.2); Absolute Eosinophil Count 0.44 10^3/uL (0.0-0.7); Absolute Lymphocyte Count 2.98 10^3/uL (1.2-3.4); Absolute Monocyte Count 0.68 10^3/uL (0.1-0.8); Absolute Neutrophil Count 8.74 10^3/uL (1.2-6.7); Basophils % 0.9; Eosinophils % 3.4; HCT 37.3 % (40.0-50.0); HGB 11.9 g/dL (13.5-17.5); Immature Grans % 0.7; Lymphocytes % 22.8; MCH 29.2 pg (27.0-33.0); MCHC 31.9 % (32.0-36.0); MCV 91.6 fL (80-95); MPV 10.7 fL (8.0-11.0); Monocytes % 5.2; Nucleated RBC 0 %; Platelet Count 441 10^3/uL (130-400); RBC 4.07 10^6/uL (4.36-5.78); RDW 14.1 % (11.8-14.1); RDW-SD 47.9 fL; WBC 13.05 10^3/uL (4.4-10.8)
== END 2020-08-31 17:56 | disposition home or self-care (01) ==
LOC: LBN 17:55
PROVIDERS: PCP Nurse Practitioner Family; Visit Provider Nurse Practitioner Adult Health
DX: R31.0 Gross hematuria (principal); N39.0 Urinary tract infection, site not specified
CPT/HCPCS: 85025

== ENCOUNTER 2020-09-01 19:36 | Outpatient (REF) | payer MEDICARE, MEDICAID, SELFPAY ==
[2020-09-02 17:57] LABS: COVID-19 RT-PCR Result Not Detected ((See Note))
== END 2020-09-01 19:37 | disposition home or self-care (01) ==
LOC: LBN ADD 19:36
PROVIDERS: PCP Nurse Practitioner Family; Visit Provider Nurse Practitioner Adult Health
DX: Z20.822 Contact with and (suspected) exposure to COVID-19 (principal)
CPT/HCPCS: U0003

== ENCOUNTER 2020-09-06 16:42 | Outpatient (REF) | payer MEDICARE, MEDICAID, SELFPAY ==
[2020-09-08 18:57] LABS: COVID-19 RT-PCR Result Not Detected ((See Note))
== END 2020-09-06 16:43 | disposition home or self-care (01) ==
LOC: NCHCN 16:42
PROVIDERS: PCP Nurse Practitioner Family; Visit Provider Nurse Practitioner Adult Health
DX: Z20.822 Contact with and (suspected) exposure to COVID-19 (principal)
CPT/HCPCS: U0003

== ENCOUNTER 2020-09-10 19:43 | Outpatient (REF) | payer MEDICARE, MEDICAID, SELFPAY ==
[2020-09-10 16:49] LABS: Abs Immature Grans 0.04 10^3/uL (0.0-0.06); Absolute Basophil Count 0.11 10^3/uL (0.0-0.2); Absolute Eosinophil Count 0.58 10^3/uL (0.0-0.7); Absolute Lymphocyte Count 2.95 10^3/uL (1.2-3.4); Absolute Monocyte Count 0.75 10^3/uL (0.1-0.8); Basophils % 0.9; Eosinophils % 4.9; HCT 38.5 % (40.0-50.0); HGB 12.1 g/dL (13.5-17.5); Immature Grans % 0.3; MCH 28.7 pg (27.0-33.0); MCHC 31.4 % (32.0-36.0); MCV 91.2 fL (80-95); MPV 11.1 fL (8.0-11.0); Monocytes % 6.4; Neutrophils % 62.5; Nucleated RBC 0 %; Platelet Count 377 10^3/uL (130-400); RBC 4.22 10^6/uL (4.36-5.78); RDW 14.5 % (11.8-14.1); RDW-SD 48.6 fL; WBC 11.79 10^3/uL (4.4-10.8)
[2020-09-10 16:54] LABS: Absolute Neutrophil Count 7.37 10^3/uL (1.2-6.7)
[2020-09-10 16:59] LABS: ALT 17 U/L (16-63); AST 14 U/L (15-37); Albumin 3.1 g/dL (3.4-5.0); Alkaline Phosphatase 87 U/L (46-116); BUN 14 mg/dL (7-18); Bilirubin, Total 0.3 mg/dL (0.2-1.0); CREATININE 0.8 mg/dL (0.70-1.30); Chloride 104 mmol/L (98-107); Glucose 88 mg/dL (74-106); Potassium 4.7 mmol/L (3.5-5.1); Sodium 140 mmol/L (136-145); Total Protein 6.8 g/dL (6.4-8.2)
== END 2020-09-10 19:44 | disposition home or self-care (01) ==
LOC: LBN 19:43
PROVIDERS: PCP Nurse Practitioner Family; Visit Provider Nurse Practitioner Adult Health
DX: R50.9 Fever, unspecified (principal)
CPT/HCPCS: 80053; 85025

== ENCOUNTER 2020-10-07 02:19 | Outpatient (REF) | payer MEDICARE, MEDICAID, SELFPAY | END 2020-10-07 02:20 | disposition home or self-care (01) | LOC: LBN 02:19 | PROVIDERS: PCP Nurse Practitioner Family; Visit Provider Family Medicine | DX: N39.0 Urinary tract infection, site not specified (principal) | CPT/HCPCS: 87086 ==